=== PATIENT | female | born 1970 | race Caucasian/White ===

== ENCOUNTER 2024-08-07 08:18 | Outpatient (REF) | payer BC, SELFPAY ==
[2024-08-07 09:59] LABS: MANUAL DIFF FLAG NO
[2024-08-07 10:18] LABS: Basophils Percent Auto 0.3 % (0-2); Eosinophils Absolute Auto 0.1 X10*3/uL (0.0-0.4); Eosinophils Percent Auto 1.9 % (0-4); Hematocrit 37.9 % (37.0-47.0); Hemoglobin 12.7 g/dl (12.0-16.0); Imm Gran Abs Auto 0.02 X10*3/uL (0.00-0.03); Imm Gran Pct Auto 0.3 % (0.0-0.4); Lymphocytes Absolute Auto 1.6 X10*3/uL (1.2-4.9); Lymphocytes Percent Auto 26.6 % (20-40); Mean Corpuscular HGB Conc 33.5 g/dl (31.0-35.0); Mean Corpuscular Hemoglobin 31.4 pg (27.0-33.0); Mean Corpuscular Volume 93.8 fL (80.0-98.0); Mean Platelet Volume 9.8 fL (9.4-12.3); Monocytes Absolute Auto 0.5 X10*3/uL (0.1-1.2); Neutrophils Absolute Auto 3.7 x10*3/uL (2.0-8.3); Neutrophils Percent Auto 62.9 % (45-73); Platelet Count 283 X10*3/uL (160-400); Red Blood Count 4.04 X10*6/uL (4.20-5.50); Red Cell Distribution Width 12.6 % (11.0-16.0); White Blood Count 5.9 X10*3/uL (4.8-10.8)
[2024-08-07 10:48] LABS: Alanine Aminotransferase 32 U/L (0-31); Aspartate Amino Transferase 26 U/L (5-31); C Reactive Protein 0.12 mg/dL (< or = 0.50); Estimated Glomerular Filt Rate > 60
[2024-08-07 10:50] LABS: Erythrocyte Sedimentation Rate 7 MM/HR (0-20)
[2024-08-07 11:12] LABS: HBsAGNum1 0.35 S/CO (0.00-0.99); Hepatitis B Core Antibody Nonreactive (Nonreactive); Hepatitis B Surface Antigen Negative (Negative); ~HepC Num1 0.12 S/CO (0.00-0.79); ~Hepatitis B Surface Antibody NONREACTIVE (Nonreactive); ~Hepatitis C Antibody Nonreactive (Nonreactive)
[2024-08-09 23:53] LABS: TS Negative Control Passed; TS Panel A 0; TS Panel B 0; TS Positive Control Passed; TSpotTB Negative (Negative)
== END 2024-08-07 08:19 | disposition home or self-care (01) ==
LOC: HO.LAB 08:18
PROVIDERS: PCP Internal Medicine; Visit Provider Internal Medicine Rheumatology
DX: M05.761 Rheumatoid arthritis with rheumatoid factor of right knee without organ or systems involvement (principal); M05.762 Rheumatoid arthritis with rheumatoid factor of left knee without organ or systems involvement; Z79.899 Other long term (current) drug therapy
CPT/HCPCS: 20610; 36415; 82565; 84450; 84460; 85025; 85652; 86140; 86481; 86704; 86706; 86803; 87340; J2003; J3300

== ENCOUNTER 2024-08-07 08:18 | Outpatient (AMB) | payer BC, SELFPAY ==
[2024-08-07 08:29] VITALS: BP 122/72; PULSE 77; O2SAT 97; BMI 30.7
--- NOTE | 2024-08-07 08:29 | A.OFFVIS_ITS ---
Vital Signs 08/07/24 08:29 Height 5 ft 8 in Weight 201 lb 11.567 oz BMI 30.7 BP 122/72 Blood Pressure Location Lt brachial Position Sitting Pulse 77 Pulse Source Pulse Oximeter Pulse Oximetry (%) 97 Oxygen Delivery Method Room Air Intake Visit Reasons: RA/MR Recieved Intake Note: Patient presents today for RA follow up. She was last seen on 06/12/24 at the [facility] by Dr. Yuan. She states it's mainly in knees and hands. Patient fwould like refill of Methotrexate. Allergies tofacitinib [From Xeljanz] Allergy (Mild, Verified 08/05/24 12:55) Hives Sulfa (Sulfonamide Antibiotics) Allergy (Unknown, Unverified 08/05/24 12:55) Hives HPI HPI RA/MR Recieved: Details: She is feeling soreness and swelling in knees. MS 30 minutes. Pain was better controlled the 1st month she started Rinvoq. She saw Dr. Wilcox in May and had labs done. I do not have results of labs. Pt improved pain from achilles tendonitis [facility]. Rheumatology history: Diagnosis rheumatoid arthritis low titer positive rheumatoid factor diagnosed in her 20s. Erosive. Failed sulfasalazine 99 05/20/2005, methotrexate 2004 to 2005 partial response, Enbrel lost effectiveness January 2006 to 07/07/2014. Humira 07/07/2014 to 01/05/2023 and Simponi 01/24/2023 lost effectiveness. Orencia 06/07/2023 to 10/07/2023 recurrent infections. Xeljanz 12/06/2023 to 04/06/2024 facial rash. Methotrexate 07/07/2023 to present. Rinvoq 05/07/2024 to present [facility] Medical History (Updated 08/07/24 @ 09:19 by Gee Herndon MD) PUD (peptic ulcer disease) Endometrial polyp Incisional hernia Rheumatoid arthritis Surgical History (Updated 08/05/24 @ 13:03 by Marina Bagley CMA) H/O colonoscopy Social History (Updated 08/07/24 @ 08:21 by Marina Bagley CMA) Alcohol intake: never Patient Tobacco Use Status: Never used Tobacco Review of Systems Const All systems reviewed & are unremarkable except as noted in HPI and below Physical Exam Vital Signs: Last Vital Signs Pulse 77 08/07/24 08:29 BP 122/72 08/07/24 08:29 Pulse Ox 97 08/07/24 08:29 Oxygen Delivery Method Room Air 08/07/24 08:29 BMI result Body Mass Index 30.7 Const General: cooperative and healthy appearing Resp Auscultation: clear to auscultation bilaterally Cardio Rate: regular rate Rhythm: regular rhythm Heart sounds: S1 normal heart sound present and S2 normal heart sound present Extrem Other: Tender to palpate right knee. Suprapatellar effusion present. Good range of motion of knees. Crepitus bilateral knees present. No MTP tenderness. No synovitis of joints in upper extremity. No tenderness of any joints in upper extremity. Bilateral Z fingers present. Office Procedures AMB Joint Injection/Aspiration Joint Injection/Aspiration Details: Bilateral knees were injected Prep: site was prepped using aseptic technique Injected: 40 mg of, Kenalog, with 1 mL of and 1% plain lidocaine Procedure: The patient tolerated the procedure well Coding 86098 - Large joint Additional procedure code (CPT) needed (Modifier needed for bilateral procedure) Office Meds Kenalog 40 mg/mL suspension for injection Performing Provider: Gee Herndon MD Performing Location: [facility] Administered by: Gee Herndon MD on 08/07/24 09:12 Dose Route Admin Location Dispensed Lot Number Expiration Date [facility] Sealer Dry Cell 40 mg intra-articular Right knee 1 mL AP [id number] [employer] 40 mg intra-articular Left knee 1 mL AP [id number] [employer] lidocaine (PF) 10 mg/mL (1 %) injection solution Performing Provider: Gee Herndon MD Performing Location: [facility] Administered by: Gee Herndon MD on 08/07/24 09:12 Dose Route Admin Location Dispensed Lot Number Expiration Date [facility] Sealer Dry Cell 10 mg Infiltration Right knee 2 mL [id number] [employer] 10 mg Infiltration Left knee 2 mL [id number] [employer] Assessment & Plan Assessment & Plan (1) Rheumatoid arthritis: Comment: Improved control on Rinvoq and methotrexate. She has received partial response with addition of Rinvoq. We discuss further treatment with intra-articular cortisone injection in bilateral knees for further improvement of knee pain and swelling. Code(s): M06.9 - Rheumatoid arthritis, unspecified Category: Medical Qualifiers: Rheumatoid arthritis location: knee Rheumatoid factor presence: with rheumatoid factor Laterality: bilateral Qualified Code(s): M05.761 - Rheumatoid arthritis with rheumatoid factor of right knee without organ or systems involvement; M05.762 - Rheumatoid arthritis with rheumatoid factor of left knee without organ or systems involvement Plan: Bilateral knee cortisone injections were given this visit Continue Rinvoq 15 mg daily. She needs a new PA After lab results are back for disease and drug monitoring we will send prescription for methotrexate 20 mg once weekly She will continue folic acid 1 mg daily Return to clinic in 3 months (2) [facility] [place] [facility] drug therapy: Code(s): Z79.899 - Other [place] [facility]current[facility] drug therapy Category: Medical Plan: See above Orders: Orders C Reactive Protein Today M06.9 - Rheumatoid arthritis, unspecified, Z79.899 - Other [place] [facility]current[facility] drug therapy Complete Blood Count Auto Diff Today M06.9 - Rheumatoid arthritis, unspecified, Z79.899 - Other extermination supervisor (current) drug therapy Erythrocyte Sedimentation Rate Today M06.9 - Rheumatoid arthritis, unspecified, Z79.899 - Other extermination supervisor (current) drug therapy Alanine Aminotransferase Today M06.9 - Rheumatoid arthritis, unspecified, Z79.899 - Other extermination supervisor (current) drug therapy Aspartate Amino Transferase Today M06.9 - Rheumatoid arthritis, unspecified, Z79.899 - Other extermination supervisor (current) drug therapy Creatinine Today M06.9 - Rheumatoid arthritis, unspecified, Z79.899 - Other [place] [facility] drug therapy Hepatitis B,C Profile Today M06.9 - Rheumatoid arthritis, unspecified, Z79.899 - Other extermination supervisor (current) drug therapy T Spot TB Today M06.9 - Rheumatoid arthritis, unspecified, Z79.899 - Other extermination supervisor (current) drug therapy AMB Joint Injection/Aspiration Today M06.9 - Rheumatoid arthritis, unspecified Medications: New upadacitinib ER (Rinvoq) Take 1 tablet daily. PA needed. Continuity of treatment. 15 mg PO DAILY 30 tabs 2RF Kenalog (triamcinolone acetonide) 80 mg (2 mL) intra-articular ONCE 2 mL 0RF NS M06.9 - Rheumatoid arthritis, unspecified lidocaine (PF) 10 mg Infiltration ONCE 1 mL 0RF M06.9 - Rheumatoid arthritis, unspecified Coding Level of Care Code Est Pt Level 4 (10797) Complex EM visit Add On G2211 Diagnoses Rheumatoid arthritis involving both knees with positive rheumatoid factor M05.761; M05.762 Rheumatoid arthritis location: knee Rheumatoid factor presence: with rheumatoid factor Laterality: bilateral Other [place] [facility]current[facility] drug therapy Z79.899 CPT Codes Coding - 79272 Large joint: 71945 - Large joint ([id number])
== END 2024-08-07 09:14 | disposition home or self-care (01) ==
PROVIDERS: PCP Internal Medicine; Referring Provider Internal Medicine; Visit Provider Internal Medicine Rheumatology
DX: M05.761 Rheumatoid arthritis with rheumatoid factor of right knee without organ or systems involvement (principal); M05.762 Rheumatoid arthritis with rheumatoid factor of left knee without organ or systems involvement; Z79.899 Other long term (current) drug therapy; M06.9 Rheumatoid arthritis, unspecified
CPT/HCPCS: 20610; 99214

== ENCOUNTER 2024-11-06 10:08 | Outpatient (AMB) | payer BC, SELFPAY ==
--- NOTE | 2024-11-06 10:22 | MHC.OFFVIS ---
Vital Signs 11/06/24 10:40 Height 5 ft 8 in Weight 203 lb 6 oz BMI 30.9 BP 122/70 Blood Pressure Location Lt brachial Position Sitting Pulse 83 Pulse Source Pulse Oximeter Pulse Oximetry (%) 94 Oxygen Delivery Method Room Air Intake Visit Reasons: Follow Up Intake Note: Pt present today for rheumatoid arthritis. Diet Aide Required: No Accompanied by: Self / Same As Patient Allergies tofacitinib [From Xeljanz] Allergy (Mild, Verified 11/06/24 10:22) Hives Sulfa (Sulfonamide Antibiotics) Allergy (Unknown, Verified 11/06/24 10:22) Hives HPI HPI Follow Up: Details: She has comedones on her face. Dermatology is concerned that it may be drug-induced related to Rinvoq. Previously she had similar rash when she was on Xeljanz. She has been given topical treatment options without benefit. Knee pain is controlled. Denies morning stiffness. No new joint swelling. No recent infections. She has not had Rinvoq in 1 week. [facility] Medical History PUD (peptic ulcer disease) Endometrial polyp Incisional hernia Rheumatoid arthritis Surgical History H/O colonoscopy Social History Alcohol intake: never Patient Tobacco Use Status: Never used Tobacco Review of Systems Const All systems reviewed & are unremarkable except as noted in HPI and below Physical Exam Vital Signs: Last Vital Signs Pulse 83 11/06/24 10:40 BP 122/70 11/06/24 10:40 Pulse Ox 94 11/06/24 10:40 Oxygen Delivery Method Room Air 11/06/24 10:40 BMI result Body Mass Index 30.9 Const Other: General: Comfortable CVS: RRR Respiratory: clear to auscultation bilaterally. Good respiratory effort Skin: Comedones present on cheeks and chin. MSK: Bilateral see fingers present. Squaring of CMCs. Ulnar deviation right hand. No tenderness of any joints. No synovitis. Good range of motion of upper extremities and lower extremities. Assessment & Plan Assessment & Plan (1) Rheumatoid arthritis: Comment: She is in remission on Rinvoq and methotrexate after cortisone injections of bilateral knees last visit. However, there is concern that the Coumadin is on her face may be related to drug reaction from Rinvoq. We discussed next steps in DMARD therapy. She had secondary treatment failures to TNF inhibitors by had long benefit of at least 9 years on Enbrel and 7 years on Humira. We discussed trying another TNF inhibitor. Discussed side effects, benefits and drug monitoring on Cimzia. At this time she is being managed for hyper triglyceridemia/hypercholesterolemia on gemfibrozil. I am avoiding tocilizumab due to side effect of hypercholesterolemia/hypertriglyceridemia. Recent labs revealed mild transaminitis. If she continues to have transaminitis, I will lower methotrexate dose. Rheumatology history: Low titer positive rheumatoid factor. Erosive inflammatory arthritis. Failed sulfasalazine 1998 to 2004, methotrexate 2004 to 2005 with partial response, Enbrel secondary treatment failure January 2006 to 06/2014, Humira 06/2014 to 12/2022. Simponi 01/24/2023. Orencia 05/2023 to 09/2023 discontinued due to recurrent infections. Methotrexate restarted 07/07/2023 to present. Xeljanz effective 11/2023 to 03/2024 discontinued due to facial rash. Rinvoq effective 03/2024-10/2024 discontinued due to facial rash. Code(s): M06.9 - Rheumatoid arthritis, unspecified Category: Medical Qualifiers: Rheumatoid arthritis location: knee Rheumatoid factor presence: with rheumatoid factor Laterality: bilateral Qualified Code(s): M05.761 - Rheumatoid arthritis with rheumatoid factor of right knee without organ or systems involvement; M05.762 - Rheumatoid arthritis with rheumatoid factor of left knee without organ or systems involvement Plan: She will need Cimzia induction 400 mg once then 2 weeks later then 4 weeks later followed by maintenance 200 mg every 2 weeks Labs for drug monitoring on high-risk medication ordered Continue methotrexate 17.5 mg once weekly Continue folic acid 1 mg daily (2) Other snf (current) drug therapy: Code(s): Z79.899 - Other snf (current) drug therapy Category: Medical Plan: See above Orders: Orders Complete Blood Count Auto Diff Today Z79.60 - prison (current) use of unspecified immunomodulators and immunosuppressants Creatinine Today Z79.60 - termite inspector (current) use of unspecified immunomodulators and immunosuppressants Erythrocyte Sedimentation Rate Today M05.761 - Rheumatoid arthritis with rheumatoid factor of right knee without organ or systems involvement, M05.762 - Rheumatoid arthritis with rheumatoid factor of left knee without organ or systems involvement, Z79.899 - Other termite control technician (current) drug therapy Alanine Aminotransferase Today Z79.60 - termite inspector (current) use of unspecified immunomodulators and immunosuppressants Aspartate Amino Transferase Today Z79.60 - prison (current) use of unspecified immunomodulators and immunosuppressants C Reactive Protein Today M05.761 - Rheumatoid arthritis with rheumatoid factor of right knee without organ or systems involvement, M05.762 - Rheumatoid arthritis with rheumatoid factor of left knee without organ or systems involvement, Z79.899 - Other snf (current) drug therapy Medications: New certolizumab pegol (Cimzia) Maintenance dose 200 mg every other week PA needed 200 mg subcut Q2W 1 ea 2RF certolizumab pegol (Cimzia) PA needed for induction. Initial 400 mg dose, repeat dose 2 weeks and 4 weeks after initial dose. 400 mg (2 mL) subcut Q2W 3 ea 0RF Coding Level of Care Code Est Pt Level 4 (42851) Complex EM visit Add On G2211 Diagnoses Rheumatoid arthritis involving both knees with positive rheumatoid factor M05.761; M05.762 Rheumatoid arthritis location: knee Rheumatoid factor presence: with rheumatoid factor Laterality: bilateral Other snf (current) drug therapy Z79.899
[2024-11-06 10:40] VITALS: BP 122/70; PULSE 83; O2SAT 94; BMI 30.9
--- OUTSIDE RECORDS SUMMARY | 2024-11-06 10:40 | XMS_ITS | Encounter Summary ---
Author Organization [facility] Address [address] [place] [address] Care Team Providers Care Document Analyst Name Role Phone Lori Victoria MD Primary Care Prov ider Reason for Referral * Imaging (Routine) - Closed Specialty Diagnoses / Procedures Referred By Contac t Referred To Contact Radiology Diagnoses Encounter for screening mammogram for breast cancer Procedures MG Mammo Digital Screening w Joshua bilat [facility], Self Referral [facility] Referral ID Status Reason Start Date Expiration Date Visits Re quested Visits Authorized [id number] Closed 10/08/2024 10/08/2025 1 1 * Imaging (Routine) - Closed Specialty Diagnoses / Procedures Referred By Contac t Referred To Contact Radiology Diagnoses Encounter for screening mammogram for breast cancer Procedures MG Mammo Digital Screening w Joshua bilat [facility], Self Referral [facility] [place] Referral ID Status Reason Start Date Expiration Date Visits Re quested Visits Authorized [id number] Closed 10/08/2024 10/08/2025 1 1 Reason for Visit * Imaging (Routine) - Closed Specialty Diagnoses / Procedures Referred By Contac t Referred To Contact Radiology Diagnoses Encounter for screening mammogram for breast cancer Procedures MG Mammo Digital Screening w Joshua bilat [facility], Self Referral [facility] [place] Referral ID Status Reason Start Date Expiration Date Visits Re quested Visits Authorized [id number] Closed 10/08/2024 10/08/2025 1 1 Encounter Details Date Type Department Care Team (Latest Contact Info) Description 10/14/2024 2:00 PM EST - 10/14/2024 11:59 PM EST Hospital [facility] [address] [address] Encounter for screening mammogram for breast cancer Discharge Disposition: Home or Self Care Social History Tobacco Use Types Packs/Day Years Used Date Smoking Tobacco: Never Smokeless Tobacco: Never Alcohol Use Standard Drinks/Week Comments No 0 (1 standard drink = 0.6 oz pur e alcohol) Comments No Sex and Gender Information Value Date Recorded Sex Assigned at Female 10/11/2024 8:15 AM EST Legal Sex Female 2:58 PM EST Gender Identity Female 10/11/2024 8:15 AM EST Sexual Orientation Not on file documented as of this encounter Last Filed Vital Signs Vital Sign Reading Time Taken Comments Blood Pressure - - Pulse - - Temperature - - Respiratory Rate - - Oxygen Saturation - - Inhaled Oxygen Concentration - - Weight 89.8 kg (198 lb) 10/14/2024 2:17 PM EST Height 172.7 cm (5' 8 ) 10/14/2024 2:17 PM EST Body Mass Index 30.11 10/14/2024 2:17 PM EST documented in this encounter Medications at Time of Discharge aluminum-magnesi um hydroxide-simeth icone (Antacid-Antigas ) 200-200-20 mg/5 mL suspension TAKE 15 ML BY MOUTH 3 TIMES DAILY NEEDED (HEARTBURN, BURNING IN ESOPAHGUS, DUODENAL ULCER). 11/01/2023 cholecalciferol (VITAMIN D-3) 125 mcg (5,000 unit) capsule Take 1 capsule (5,000 Units total) by mouth 1 (one) time each day. cimetidine (TAGAMET) 400 mg tablet Take 1 tablet (400 mg total) by mouth 2 (two) times a day. 04/22/2024 estradioL (ESTRACE) 0.5 mg tablet Take 1 tablet (0.5 mg total) by mouth. 12/02/2014 famotidine (Pepcid) 20 mg tablet Take 1 tablet (20 mg total) by mouth 2 (two) times a day. 60 each 10/02/2024 folic acid (FOLVITE) 1 mg tablet TAKE ONE TABLET DAILY WHILE ON METHOTREXATE LORazepam (Ativan) 0.5 mg tablet Take 1 tab prior to procedure 2 tablet 08/02/2024 medroxyPROGESTER one (PROVERA) 10 mg tablet Take 1 tablet (10 mg total) by mouth 1 (one) time each day. 02/18/2020 methotrexate (Xatmep) 2.5 mg/mL Take by mouth. Rinvoq 15 mg tablet extended release 24 hr Take 15 mg by mouth 1 (one) time each day. 09/21/2024 sertraline (Zoloft) 25 mg tablet Take 1 tablet (25 mg total) by mouth 1 (one) time each day. 30 each 10/02/2024 documented as of this encounter Discharge Disposition Disposition Code Departure Means Destination Home or Self Care documented in this encounter Plan of Treatment Upcoming Encounters Date Type Department Care Team (Late st Contact Info) Description 11/14/2024 11:00 AM EST Office Visit Adult Medicine [facility] [address] [place] [address] Fidelina Damon PA [address] [place] [address] documented as of this encounter Procedures Procedure Name Priority Date/Time Associated Diagnosis Comments MG MAMMO DIGITAL SCREENING W JOSHUA BILAT Routine 10/14/2024 2:26 PM EST Encounter for screening mammogram for breast cancer documented in this encounter Results * MG Mammo Digital Screening w Joshua bilat (10/14/2024 2:26 PM EST) Anatomical Region Laterality Modality Breast Bilateral Mammography 10/14/2024 3:08 PM EST Impressions 10/14/2024 3:15 PM EST Multiple bilateral circumscribed equal density masses. ?? No suspicious masses. A negative mammogram in the presence of a clinically suspicious palpable abnormality does not preclude the possibility of malignancy or alter the indications for biopsy. ASSESSMENT: ?? BI-RADS 2: BENIGN RECOMMENDATION(S): 1: Routine screening mammogram BILATERAL in 1 year. -------- FINAL REPORT -------- Dictated By: Hilario Mccoy Dictated Date: 10/14/2024 15:08 ET Assigned Physician: Hilario Mccoy Reviewed and Electronically Signed By: Hilario Mccoy Signed Date: 10/14/2024 15:15 ET Workstation ID: [id number] Transcribed By: Self Edit Transcribed Date: 10/14/2024 15:08 ET Narrative 10/14/2024 3:15 PM EST EXAM: ??SCREENING MAMMOGRAPHY, BILATERAL HISTORY: ??SCREENING. ??No additional history. COMPARISON: ??05/05/2023, 02/07/2022, 02/05/2021 TECHNIQUE: Synthesized CC and MLO projections of each breast. ??Tomosynthesis of each breast in the CC and MLO projections. ADDITIONAL IMAGING: None Computer-aided detection was employed with the iCAD ??profound AI 3-D. TISSUE DENSITY: There are scattered areas of fibroglandular density. (BI-RADS category B) FINDINGS: RIGHT BREAST: There are multiple small varying sized round and oval equal density masses with circumscribed margins. ?? No spiculated masses. ??No distortion. ??No suspicious calcification LEFT BREAST: There are multiple small circumscribed equal density masses. ?? No spiculated masses or distortion. ??No suspicious calcification Procedure Note Hilario Mccoy MD - 10/14/2024 EXAM: SCREENING MAMMOGRAPHY, BILATERAL HISTORY: SCREENING. No additional history. COMPARISON: 05/05/2023, 02/07/2022, 02/05/2021 TECHNIQUE: Synthesized CC and MLO projections of each breast.Tomosynthesis of each breast in the CC and MLO projections. ADDITIONAL IMAGING: None Computer-aided detection was employed with the iCAD profound AI 3-D. TISSUE DENSITY: There are scattered areas of fibroglandular density.(BI-RADS category B) FINDINGS: RIGHT BREAST: There are multiple small varying sized round and oval equal density masseswith circumscribed margins. No spiculated masses. No distortion. No suspicious calcification LEFT BREAST: There are multiple small circumscribed equal density masses. No spiculated masses or distortion. No suspicious calcification IMPRESSION: Multiple bilateral circumscribed equal density masses. No suspicious masses. A negative mammogram in the presence of a clinically suspicious palpableabnormality does not preclude the possibility of malignancy or alter theindications for biopsy. ASSESSMENT: BI-RADS 2: BENIGN RECOMMENDATION(S): 1: Routine screening mammogram BILATERAL in 1 year. -------- FINAL REPORT -------- Dictated By: Hilario Mccoy Dictated Date: 10/14/2024 15:08 ET Assigned Physician: Hilario Mccoy Reviewed and Electronically Signed By: Hilario Mccoy Signed Date: 10/14/2024 15:15 ET Workstation ID: [id number] Transcribed By: Self Edit Transcribed Date: 10/14/2024 15:08 ET us Self Referral [facility] IMG BI PROCEDURES Final Resul t documented in this encounter Visit Diagnoses Diagnosis Encounter for screening mammogram for breast cancer documented in this encounter Care Teams Document Analyst Relationship Specialty Start Date End Date Lori Victoria MD [address] [place] [id number] PCP - General Internal Medicine 02/22/16 documented as of this encounter
--- OUTSIDE RECORDS SUMMARY | 2024-11-06 10:40 | XMS_ITS | Data Portability ---
Author Organization [place] - Associates in [facility],, LETY BURGER MD Address [address] [facility] [address] [place] [address] Care Team Providers Care Shipfitter Apprentice Name Role Phone TISH MOONEY Primary Care Provide r Assessment No assessment recorded. Plan of Treatment Reminders Order Date Submit Date Provider Last Modified By Organization Details Last Modified Time Details Appointments ANNUAL EXAM 2024 11:00A M Lety Burger MD Not available Not available Not available Lab biopsy, endometri al 2023 024 [email or web address] [facility], [address] [place], [address], 12/14/2023 07:27:04 pap test, thinprep, cervical 2022 023 [email or web address] [facility], [address] [place], [address], 05/31/2023 07:32:03 fecal occult blood, stool 2022 023 [email or web address] In-Office Order, Internal Use Only DO Not Attach Compendium DO Not Attach Compendium, Do Not Delete/merge, [id number] 05/17/2023 09:47:50 Referral None recorded. Procedures biopsy, endometri um (PROC) 2023 024 [email or web address] In-Office Order, Internal Use Only DO Not Attach Compendium DO Not Attach Compendium, Do Not Delete/merge, [id number] 12/07/2023 14:41:43 Surgeries None recorded. Imaging US, pelvis, transabdo mary + transvagi nal - PMB, please compare to prior sonogram from 11/11 to see if endometri um has thickened , the in office endometri al biopsy was benign 2023 024 [facility], [address], [place], [address], 06/19/2024 07:27:02 US, pelvis, transabdo mary + transvagi nal - pmb 2023 024 [facility], [address], [address], [place], [address], 11/17/2023 09:23:53 MAMMO, screening , digital, bilateral - Breast Aspiratio n and/or Biopsy if needed 2022 023 [facility] (Mammography) , [address] [place], [address], 05/14/2024 07:18:29 Medication Orders estradiol 1 mg tablet 2023 024 [facility]/Pharmacy #[id number], [address] [place], [address], 10/19/2023 13:44:10 medroxypr ogesteron e 5 mg tablet 2023 024 [facility]/Pharmacy #[id number], [address] [place], [address], 10/19/2023 13:45:15 estradiol 0.05 mg-noreth indrone 0.14 mg/24 hr semiwkly transderm patch 2022 023 [facility]/Pharmacy #[id number], [address] [place], [address], 04/24/2024 10:31:50 conjugate d estrogens 0.625 mg tablet 2021 022 [email or web address] 1 [facility]/Pharmacy #[id number], [address] [place], [address], 05/12/2022 06:22:20 Patient TargetsNo targets recorded. Patient Instructions Encounter Date Encounter Id Patient Instructions Last Modified By Organization Details Last Modified Time 05/11/2022 [id number] This visit is a phone telehealth visit. The patient consented to the visit by phone. The patient was at home at the time of the call and the provider and patient were the only people on the line. I was at [address] [place] [address], [address], [place], [place], at the time of the call. She has been having ongoing bloating with the use of HRT, estradiol and prometrium, and also estradiol and provera. She tried stopping the HRT for 2 weeks, the bloating resolved completely, however her vasomotor symptoms were so severe that she restarted after a week. She feels she needs HRT but would like to know if she can find a combination that does not cause such profound bloating symptoms. She feels that the provera caused less symptoms than the prometrium, however stopping the estradiol helped the most. We discussed trying conjugated equine estrogen, she will try this by itself. If no bloating then she will add in oral provera to see how that works for her. She needs to 5 mg dose as she has a past history of hyperplasia. The Climara Pro patch has a different progestin, but still has estradiol, we discussed this as well, if no improvement with CEE. We discussed having her begin to take hormone replacement therapy. We discussed the need to take a progestin if a uterus is present, and the rationale behind that. We discussed the stated risks of one in 10,000 of development o fa blood clot/DVT/PE tht could be life threatening. We discussed the Women's Health Initive study and the findings. We discused the PEPPI study as well. She is aware that there are conflicting reports in the medical literature concerning the risks and benefits of HRT. We disussed that women are advised by ACOG to take HRT in the lowest dose necessary, and for the shortest time necessary, to control their symptoms. After a long discussion of the potential risks and benefits of HRT she elects to begin HRT. All questions answered. Rx for HRT is called in to the pharmacy. Call if any vaginal bleeding occurs upon initiation of HRT, or at any time postmenopausally. Face to face discussion for 35 minutes. Not available 05/12/2022 06:26:14 05/17/2023 [id number] learning about healthy weight silverio Not available 05/17/2023 08:45:04 She is here for annual, doing well on HRT but still having the bloating. She had a hiatal hernia repair and had hoped the bloating would resolve but it did not. She believes it is due to the HRT. Note from 2021: She is here for annual exam, doing well on the estradiol and 5 mg provera, except for considerable continued blaating This has been an ongoing issue since starting the progesterone. It happened with the oral prometrium, and the 5 mg provera. She needs to 5 mg as she has a past history of developing hyperplasia on HRT. She tried stopping the HRT for 2 weeks, the bloating resolved completely, however her vasomotor symptoms were so severe that she restarted after a week. Will try switching to combination patch to see if this helps the bloating, she would like to try that. She appears to be doing well. Monthly self breast exam was taught, and stressed, and is advised to call if she discovers any new mass in the breast. silverio Not available 05/17/2023 08:46:42 10/19/2023 [id number] vaginal bleeding after menopause: care instructions silverio Not available 10/19/2023 13:42:52 She had the onse t of bright red postmenopausal bleeding a few weeks ago, it s coming and going, recently was a bit heavier in flow. She does use the combination patch for HRT, has not missed any patches. She does not like the patch and would like to go back to the oral pills. she had been taking 1 mg estradiol and 5 mg provera. She had a D and C in 01/2018 that removed a benign hyperplastic endometrial polyp without atypia. We discussed all this, will change back to the oral HRT. Check pelvic sonogram, and may need an emb or a D and C if the endometrium is thickened, she understands. All questions answered, she has gone through this before. The patient was agreeable to this plan. She is aware of the limitations caused by the covid restrictions, and this phone call. Face to face discussion 11 minutes Not available 10/19/2023 14:04:40 12/07/2023 [id number] postmenopausal bleeding information Not available 12/07/2023 14:38:51 endometrial biopsy: about this test Not available 12/07/2023 14:38:51 She is here for EMB for pmb and a thickening of 4 mm on sonogram. She tolerated emb well, await results. Not available 12/07/2023 14:39:02 04/24/2024 [id number] vaginal bleeding after menopause: care [email or web address] Not available 04/24/2024 10:47:28 She is here for another episode of PMB. She has been taking HRT since 2014, she had the onset of menopause in 2013 at the age of 44. she has missed no pills. The bleeding began 2 1/2 weeks ago, and just finished 2 days ago. Some days light, but some were a moderately heavy flow. Sonogram in 11/11 showed a 4 mm heterogeneous endometrium, emb done was benign and atrophic. She may have an endometrial polyp. She notes that she had a D and C in 2018 and an endometrial polyp was removed. Will repeat the sonogram to see if the endometrium has thickened in the past 6 months. We discussed that likely she will need and D and C again, but let's see what the sonogram shows, first. Face to face discussion, record review and coordination of care 25 minutes Not available 04/24/2024 10:51:01 Reason for Referral None Reported. Results Created Date Observation Date Name Description Value Unit Range Abnormal Flag Note LastModifiedBy Organization Detail LastModifiedTime 04/25/20 22 04/25/2022 PAP1C ASE oxr3aicr ThinP rep Pap, Image d: NEGAT REGINALD FOR SQUAM OUS INTRA EPITH ELIAL SERVANDO Wan AND GENA RICHTER . Judit Grayson il , [place]( CP) (Case elect mk collins john d 05 01 2022) ADEQU ACY: Satis facto ry Endoc ervic al/tr ansfo rmati on zone compo nent absen t. SOURC E: ThinP rep Pap HPV IF Ascus : Refle x 16 and 18, Cervi olivia, Image d CLINI OLIVIA INFOR MATIO N: HPV If Diagn osis of ASCUS . LPS 1 neg, [Z01. 419] Not Available [facility], Cytopathology Service [address] [place], [address], 05/02/2022 08:26:30 04/25/20 22 04/25/2022 fecal occul t blood , stool Occult Blood negati ve Not Available In-Office Order Internal Use Only DO Not Attach Compendium DO Not Attach Compendium, Do Not Delete/merge, [id number] 04/25/2022 14:02:51 05/17/20 23 05/17/2023 [facility] CYTOL OGY results Patibridger nt Name: MANUEL JENNINGS nt : [phone] (Age: 53) Lab Acces snata #: [id number] Colle ction Date: 2022 Acces santa Date: 2022 Sign Out Date: 023 Tissu e Sourc e: 1: THINP REP ROTATING EQUIPMENT SPECIALIST PAP TEST, CERVI OLIVIA: Final Diagn osis: NEGAT REGINALD FOR INTRA EPITH ELIAL LESMAHSA N OR MALCHRISTIAN RICHTER . Satis facto ry for evalu ation . Endoc ervic al/tr ansfo rmati on zone prese nt. Clini olivia Histo ry: Date of Last Menst rual Perio d: not avail able Menst rual Histo ry: Post- menop ausal Contr acept reginald Histo ry: not avail able Ancil kai Testi ng: HPV (ASCU S) Case image d by the ThinP rep Imagi ng Syste m with katie fultonr govind zee or fabiola calderon Perfo rmed at [facility] ate Refer ence [facility] Cytol [facility]gy, [address], [place] Clini olivia Histo ry (othe r): z01.4 19, lps 04-25 neg Phone #: [phone], On-Ca ll Patho logis t: [id number] Not Available [facility] [address] [place], [address], 05/26/2023 10:24:38 05/18/20 23 05/18/2023 fecal occul t blood , stool Occult Blood negati ve Not Available In-Office Order Internal Use Only DO Not Attach Compendium DO Not Attach Compendium, Do Not Delete/merge, [id number] 05/17/2023 08:28:59 12/07/19 24 12/07/2023 [facility] SURGI OLIVIA PATHO LOGY results Patie nt Name: MANUEL JENNINGS Lab Acces santa #: [id number] Patie nt : [phone] (Age: 53) Colle ction Date: 2023 Acces santa Date: 2023 Sign Out Date: 2023 Tissu e Sourc e: 1:EMB Final Diagn osis: Endom etriu m, biops y: - Mucus and scant strip s of surfa ce endom etriu m that may in appro priat e clini olivia setti ng repre sent atrop hy. Prima ry Patho logis t:Maria Del Rosario tim M.D. elect [facility] out by: Deloris tim M.D. / VIJAY Clini olivia Histo ry: Postm enopa usal bleed ing Gross Descr iptio n: Label ed endo metri al biops y . Recei sunil in forma tomasa is a 4.2 x 3.0 x 0.5 cm aggre gate of white -ting ed mucus with red, zamora tissu e. The speci men is entir les submi tted. 1 and 2-mul tiple piece s, x 2. (EG)* As of November 25, 2023, the speci men proce ssing and stain ing is perfo rmed at [facility] , [address] [place] [address] (CLIA #[id number]). Its perfo rmanc e drea cteri stics are deter mined by [facility]. Phone #: [phone], On-Ca ll Patho logis t: [id number] Not Available [facility] [address] [place], [address], 12/11/2023 18:21:17 05/05/20 23 05/05/2023 MAMMO , scree jacob, digit al, bilat eral No observ ation record ed. [facility] Diagnosit Imaging Dept [address] [place], [address], 05/08/2023 08:09:22 11/17/19 24 11/07/2023 US, pelvi s, trans abdom inal + trans vagin al No observ ation record ed. [facility]iology [facility] Imaging [address], [place], [address], 11/21/2023 10:57:29 04/30/20 24 04/30/2024 US, pelvi s, trans abdom inal + trans vagin al No observ ation record ed. [facility] [address] [facility] [address], [place], [address], 06/04/2024 13:45:39 Result Notes None recorded. 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 08:23:51 Abscess of vulva 20780984 Completed 12/28/2017 Removal Reason: resolved Lety Burger MD [address] [facility], [place], [address] , [place] - [facility] in [facility], 8 16:04:16 Infectio n of external ear 788862388 Completed 12/28/2017 Removal Reason: resolved Lety Burger MD [address] [facility], [place], [address] , [place] - [facility], 8 16:04:09 Lesion of vulva 855137068 Active Not Available [facility] 2 08:23:51 Candidal vulvovag initis 30384688 Active Not Available [facility] 2 08:23:51 Vertigo of central origin 57560054 Active Not Available 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 2 08:23:51 Amenorrh ea 50885570 Active Not Available [facility] 2 08:23:51 Dysmenor calvin 609794253 Active Not Available [facility] 2 08:23:51 Hematoch ezia 531560883 Active Not Available [facility] 2 08:23:51 Postmeno pausal bleeding 30178202 Active Not Available [facility] 2 08:23:51 Arthriti s 9623379 Active 2017 takes Humira, rheumato id arthriti s Not Available [facility] 2 08:23:51 Benign endometr ial hyperpla smita 18064989490 9108 Active 2017 Not Available [facility] 2 08:23:51 Polyp of corpus uteri 28574006 Active 2017 Not Available [facility] 2 08:23:51 Polymeno rrhea 31597382 Active Not Available [facility] 2 08:23:51 Problem Notes None recorded. Procedures Surgical History Date Name Laterality Status Provider Name and Address Organization Details Recorded Time 4 Endometrial Biopsy completed Lety Burger MD [address] [facility],[address], [place], [address], [place] - [facility] in [facility], 12/07/2023 14:39:26 3 Most Recent Mammogram completed Aliyah Handley [place] - [facility], 05/08/2023 08:54:08 8 Vulvar Biopsy completed Lety Burger MD [address] [facility],[address], [place], [address], [place] - [facility], 05/03/2018 10:38:33 8 Dilation and Curettage completed Carole Marie in [facility], 01/19/2018 08:23:46 8 Endometrial Biopsy completed Lety Burger MD [address], [place], [address], [place] - [facility], 09/29/2017 08:47:06 7 Endometrial Biopsy completed Lety Burger MD [address], [place], [address], [place] - [facility], 04/17/2017 15:33:15 5 Endometrial Biopsy completed Lety Burger MD [address], [place], [address], [place] - [facility], 09/03/2015 16:11:49 5 Vulvar Biopsy completed Lety Burger MD [address], [place], [address], [place] - [facility], 02/04/2015 09:31:52 6 Other completed Vickie Marie in [facility], 10/21/2013 08:11:03 4 Tubal Ligation completed Vickie Marie in [facility], 10/21/2013 08:11:03 5 Caesarean Section completed Carole Marie in [facility], 08/28/2012 14:20:56 Imaging Results Imaging Date Name Status LastModified by Organization Details LastModified Time 05/05/2023 MAMMO, screening, digital, bilateral completed [facility] Imaging Dept [address] [place], [address], 05/08/2023 08:09:22 11/07/2023 US, pelvis, transabdominal + [facility]aginal [email or web address] [address], [address], 11/21/2023 10:57:29 04/30/2024 US, pelvis, transabdominal + transvaginal completed [email or web address] [facility] [address] [facility] [address], [place], [address], 06/04/2024 13:45:39 Procedure Notes None recorded. Medical Equipment None Reported. Allergies Allergen ID Allergen Name Allergen Category Reaction Reaction Severity Criticality Documentation Date Start Date Code Code System Note Provider Name and Address Organization Details Recorded Time 5701 Substance with sulfonami de structure and antibacte rial mechanism of action (substanc e) medicatio n hives Not available Not available 08/28/2012 65225 8003 SNOMED Carole Lei [place] - [facility], 2 14:18:17 Medications Name Sig Start Date Stop Date Status Note LastModified by Organization Details LastModified Time cyclobenzap rine 10 mg tablet TAKE 1 TABLET BY MOUTH 3 TIMES A DAY NEEDED FOR MUSCLE SPASMS 12/28 completed Not Available Not Available Not Available fluconazole 100 mg tablet Take 1 tablet(s) by oral route for 1 day, repeat in 7 days 2012 active Not Available Not Available Not Avai lable terconazole 0.4 % vaginal cream Insert 1 applicato rful every day by vaginal route for 7 days. 11/29 completed Not Available Not Available Not Available prednisone 10 mg tablet PLEASE SEE ATTACHED FOR DETAILED DIRECTION S 10/19 completed Not Available Not Available Not Available erythromyci n 500 mg tablet TAKE 1 TABLET BY MOUTH TWICE A DAY WITH FOOD AND WATER. CONSIDER PROBIOTIC active Not Available Not Available No t Available azithromyci n 250 mg tablet TAKE 2 TABLETS BY MOUTH TODAY, THEN TAKE 1 TABLET DAILY FOR 4 DAYS 04/25 completed Not Available Not Available Not Available CombiPatch 0.05 mg-0.14 mg/24 hr transdermal APPLY 1 PATCH TWICE A WEEK BY TRANSDERM AL ROUTE FOR 84 DAYS. 04/24 completed Not Available Not Available Not Available fluconazole 150 mg tablet TAKE 1 TABLET BY MOUTH AT BEDTIME FOR 1 DAY 04/25 completed Not Available Not Available Not Available benzonatate 200 mg capsule TAKE 1 CAPSULE BY MOUTH EVERY 8 HOURS NEEDED FOR COUGH FOR 7 DAYS 04/24 completed Not Available Not Available Not Available cimetidine 400 mg tablet TAKE 1 TABLET BY MOUTH TWICE A DAY active Not Available Not Available No t Available valacyclovi r 1 gram tablet TAKE 1 TABLET BY MOUTH 3 TIMES A DAY FOR 7 DAYS 04/19 completed Not Available Not Available Not Available medroxyprog esterone 2.5 mg tablet TAKE 1 TABLET BY MOUTH EVERY DAY 04/19 completed Not Available Not Available Not Available Nystop 100,000 unit/gram topical powder APPLY TO THE AFFECTED AREAS 2 TIMES PER DAY 03/07 completed Not Available Not Available Not Available sucralfate 100 mg/mL oral suspension TAKE 2 TEASPOONS FUL (10 ML) BY MOUTH 4 TIMES DAILY. TAKE LEAST 1 DOSE AT BEDTIME 04/24 completed Not Available Not Available Not Available meloxicam 15 mg tablet TAKE 1 TABLET BY MOUTH EVERY DAY WITH FOOD 04/24 completed Not Available Not Available Not Available prednisone 20 mg tablet TAKE 2 TABLETS DAILY FOR 5 DAYS WITH FOOD 04/24 completed Not Available Not Available Not Available medroxyprog esterone 5 mg tablet TAKE 1 TABLET BY MOUTH EVERY DAY 2024 active Not Available Not Available Not Avai lable prednisone 5 mg tablet TAKE 3 TABLETS DAILY X 7DAYS, DECREASE TO 2 TABS DAILY X 7DAYS, THEN DECREASE TO 1 TAB DAILY X7DAYS. 10/19 completed Not Available Not Available Not Available sulindac 150 mg tablet TAKE 1 TAB BY MOUTH 2 TIMES DAILY WITH FOOD 04/19 completed Not Available Not Available Not Available fluocinonid e 0.05 % topical ointment APPLY TO AFFECTED AREA TWICE A DAY FOR 2 WEEKS. STOP FOR 1 WEEK THEN REPEAT NEEDED 03/07 completed Not Available Not Available Not Available cimetidine 800 mg tablet TAKE 1 TABLET BY MOUTH TWICE A DAY 12/28 completed Not Available Not Available Not Available omeprazole 40 mg capsule,del ayed release TAKE 1 CAPSULE BY MOUTH TWICE A DAY 05/17 completed Not Available Not Available Not Available meloxicam 7.5 mg tablet TAKE 1 TABLET BY MOUTH EVERY DAY WITH FOOD 04/25 completed Not Available Not Available Not Available zinc sulfate 50 mg zinc (220 mg) tablet TAKE 1 TABLET BY MOUTH DAILY 03/07 completed Not Available Not Available Not Available estradiol 1 mg tablet TAKE 1 TABLET BY MOUTH EVERY DAY 2023 active Not Available Not Available Not Avai lable methotrexat e sodium 2.5 mg tablet TAKE 7 TABLETS ONCE A WEEK ON MONDAYS active Not Available Not Available No t Available hydrocortis one valerate 0.2 % topical ointment APPLY TO AFFECTED AREA TWICE A DAY 03/04 completed Not Available Not Available Not Available antipyrine- benzocaine 5.4 %-1.4 % ear drops PLACE 1 DROP IN EAR(S) 3 TIMES DAILY NEEDED active Not Available Not Available No t Available imiquimod 5 % topical cream packet APPLY TOPICALLY TO WARTS THREE TIMES A WEEK AT NIGHT FOR 16 WEEKS. WASH OFF IN AM. 03/07 completed Not Available Not Available Not Available benzonatate 100 mg capsule TAKE 1 CAPSULE BY MOUTH 3 TIMES DAILY NEEDED FOR COUGH FOR UP TO 7 DAYS. 04/24 completed Not Available Not Available Not Available gemfibrozil 600 mg tablet TAKE 1 TABLET BY MOUTH 2 TIMES DAILY (BEFORE MEALS) FOR 30 DAYS. active Not Available Not Available No t Available cephalexin 500 mg capsule TAKE ONE PILL THREE TIMES DAILY WITH FOOD FOR ONE WEEK. 04/25 completed Not Available Not Available Not Available pantoprazol e 40 mg tablet,shahla yed release TAKE 1 TABLET BY MOUTH EVERY MORNING ON EMPTY STOMACH, WAIT 30 MINS THEN EAT TO ACTIVATE THE MED 10/19 completed Not Available Not Available Not Available conjugated estrogens 0.625 mg tablet Take 1 tablet every day by oral route for 30 days. 2021 active Not Available Not Available Not Avai lable progesteron e micronized 200 mg capsule TAKE ONE CAPSULE BY MOUTH AT BEDTIME 03/04 completed Not Available Not Available Not Available mupirocin calcium 2 % topical cream APPLY TO AFFECTED AREA TWICE A DAY 03/04 completed Not Available Not Available Not Available betamethaso ne, augmented 0.05 % topical ointment APPLY TO AFFECTED AREA ON BACK TWICE DAILY FOR 2 WKS, BREAK 1 WK, REPEAT NEEDED 12/28 completed Not Available Not Available Not Available folic acid 1 mg tablet TAKE 1 TABLET BY MOUTH EVERY DAY active Not Available Not Available No t Available bisacodyl 5 mg tablet,shahla yed release TAKE 2 TABLETS BY MOUTH RIGHT BEFORE YOUR FIRST DOSE OF LIQUID PREP. 04/24 completed Not Available Not Available Not Available gabapentin 100 mg capsule TAKE 1 CAPSULE BY MOUTH 3 TIMES A DAY MAY MAKE YOU SLEEPY 04/19 completed Not Available Not Available Not Available lorazepam 1 mg tablet TAKE 1/2 TO 1 TABLET BY MOUTH DAILY NEEDED FOR ANXIETY 12/11 completed Not Available Not Available Not Available fluocinonid e 0.05 % topical solution APPLY TWICE DAILY TO PSORIASIS ON THE SCALP FOR TWO WEEKS, THEN BREAK 1 WEEK AND REPEAT FOR FLARES 12/28 completed Not Available Not Available Not Available ipratropium bromide 42 mcg (0.06 %) nasal spray USE 2 SPRAYS BY INTRANASA L ROUTE FOR 7 DAYS. 04/25 completed Not Available Not Available Not Available clobetasol 0.05 % scalp solution APPLY TWICE DAILY TO PSORIASIS ON SCALP FOR TWO WEEKS, THEN BREAK 1 WEEK AND REPEAT NEEDED 12/28 completed Not Available Not Available Not Available fluticasone propionate 50 mcg/actuati on nasal spray,suspe nsion INSERT 2 EACH (INTRANAS AL - BILATERAL LY) DAILY FOR 30 DAYS active Not Available Not Available No t Available dicyclomine 10 mg capsule TAKE 1 CAPSULE BY MOUTH 4 TIMES DAILY (BEFORE MEALS AND NIGHTLY). TAKE NEEDED FOR ABDOMINAL PAIN 05/17 completed Not Available Not Available Not Available Hibiclens 4 % topical liquid PLEASE SEE ATTACHED FOR DETAILED DIRECTION S 05/17 completed Not Available Not Available Not Available amoxicillin 875 mg-potassiu m clavulanate 125 mg tablet TAKE 1 TABLET BY MOUTH 2 TIMES DAILY FOR 10 DAYS. TAKE WITH FOOD. 04/24 completed Not Available Not Available Not Available oxycodone 5 mg tablet TAKE 1 TABLET BY MOUTH EVERY 6 HOURS NEEDED FOR MODERATE PAIN SCALE 4-6 PARTIAL FILL UPON REQUEST 05/17 completed Not Available Not Available Not Available clindamycin 1 % lotion APPLY TO THE AFFECTED AREAS ON THE BACK ONCE DAILY 03/07 completed Not Available Not Available Not Available azelaic acid 15 % topical gel PLEASE SEE ATTACHED FOR DETAILED DIRECTION S active Not Available Not Available No t Available Enbrel 50 mg/mL (1 mL) subcutaneou s syringe Inject 1 mL every week by subcutane ous route. active Not Available Not Available No t Available metronidazo le 1 % topical gel APPLY 1 APPLICATO R TOPICALLY DAILY FOR 14 DAYS. 04/24 completed Not Available Not Available Not Available meclizine active Not Available Not Yvette ilable Not Available Humira 05/17 completed Not Available Not Available Not Available Orencia active Not Available Not Avail able Not Available diclofenac 1 % topical gel APPLY 4 GRAMS TOPICALLY TWICE DAILY 05/11 completed Not Available Not Available Not Available Simponi 50 mg/0.5 mL subcutaneou s pen injector 05/17 completed Not Available Not Available Not Available GaviLyte-G 236 gram-22.74 gram-6.74 gram-5.86 gram oral solution PLEASE SEE ATTACHED FOR DETAILED DIRECTION S active Not Available Not Available No t Available estradiol 10 mcg vaginal tablet one tab po qd 05/17 completed Not Available Not Available Not Available Antacid-Ant igas 200 mg-200 mg-20 mg/5 mL oral suspension TAKE 15 ML BY MOUTH 3 TIMES DAILY NEEDED (HEARTBUR N, BURNING IN ESOPAHGUS , DUODENAL ULCER). active Not Available Not Available No t Available Taclonex 0.005 %-0.064 % topical suspension APPLY TO AFFECTED AREA DAILY 03/07 completed Not Available Not Available Not Available Xeljanz XR 11 mg tablet,exte nded release 04/24 completed Not Available Not Available Not Available Orencia ClickJect 125 mg/mL subcutaneou s auto-inject or active Not Available Not Available Not Available Humira(CF) Pen 40 mg/0.4 mL subcutaneou s kit 05/17 completed Not Available Not Available Not Available Rinvoq 15 mg tablet,exte nded release active Not Available Not Available Not Available Vitals Date Recorded Body height Provider Name an d Address Organization Details Last Updated DateTime 05/11/2022 170.18 cm Aliyah Handley MA - [facility], 05/11/2022 11:03:40 Date Recorded Body height Heart rate Body mass index (BMI) Body weight Systolic blood pressure Diastolic blood pressure Provider Name and Address Organization Details Last Updated DateTime 3 170.18 cm 94 /min 31.7 kg/m2 59937.3 8 g 165 mm[Hg] 95 mm[Hg] Vickie Arreaga MA - [facility] in [facility], 3 08:20:09 Date Recorded Body height Provider Name an d Address Organization Details Last Updated DateTime 10/19/2023 170.18 cm Vickie tobias in [facility], 10/19/2023 13:32:04 Date Recorded Body height Body mass index (BMI) Body weight Body temperature Heart rate Systolic blood pressure Diastolic blood pressure Provider Name and Address Organization Details Last Updated DateTime 4 170.18 cm 31.7 kg/m2 11696.1 g 97.2 [degF] 86 /min 158 mm[Hg] 83 mm[Hg] alexander Marie in [facility], 4 14:21:13 Date Recorded Body height Body mass index (BMI) Body weight Heart rate Systolic blood pressure Diastolic blood pressure Provider Name and Address Organization Details Last Updated DateTime 4 170.18 cm 31.4 kg/m2 79793.3 5 g 98 /min 127 mm[Hg] 84 mm[Hg] Vickie Marie in [facility], 4 10:30:32 Social History Question Answer Notes LastModified by Organizat ion Details LastModified Time Tobacco Smoking Status Never Smoker Not Available [facility] 07[facility]21/2020 03:19:38 What Is Your Level Of Alcohol Consumption? None [id number] Information not available 07/21/2020 How Many Years Have You Consumed Alcohol? 0 [id number] Information not available 07/21/2020 What Is Your Level Of Caffeine Consumption? Occasional [id number] Information not available 07/21/2020 In The 14 Days Before Symptom Onset, Have You Had Close Contact With A Laboratory-confir med COVID-19 While That Case Was Ill? No Information not available 04/19/2021 In The 14 Days Before Symptom Onset, Have You Had Close Contact With A Person Who Is Under Investigation For COVID-19 While That Person Was Ill? No Information not available 04/19/2021 Have You Been To An Area Known To Be High Risk For COVID-19? No Information not available 04/19/2021 Are You Currently Employed? Yes Information not available 04/19/2021 Diabetes No Information no t available 03/04/2016 What Type Of Diet Are You Following? REGULAR [id number] Information not available 07/21/2020 Which Illicit Or Recreational Drugs Have You Used? None [id number] Information not available 07/21/2020 Do You Reside In Or Have You Traveled To An Area Where Ebola Virus Transmission Is Active? No [id number] Information not available 07/21/2020 Education 12 Information no t available 08/28/2012 What Is The Highest Grade Or Level Of School You Have Completed Or The Highest Degree You Have Received? 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 [employer] [id number] Information not available 07/21/2020 How Many Days In The Past Year Have You Had A Heavy Drinking Consumption (4+ Female, 5+ Male)? 0 Information no t available 06/07/2016 Are There Any Guns Present In Your Home? No Information not available 04/19/2021 High Number Of Sexual Partners No Information not available 03/04/2016 Live Alone Or With Others? With Others [employer] Information not available 03/04/2016 To Which Gender Do You Self-identify? Female Information not available 03/04/2016 Marital Status [employer] Informatio n not available 08/28/2012 What Was The Date Of Your Most Recent Tobacco Screening? 10/19/2023 Information not available 10/19/2023 How Many Children Do You Have? 2 [id number] Information not available 07/21/2020 What Is Your Relationship Status? Information not available 04/19/2021 Seat Belts Used Routinely Yes Paradise Cornertorski Information not available 03/04/2016 Are You Sexually Active? Yes [id number] Information not available 07/21/2020 How Much Tobacco Do You Smoke? No [id number] Information not available 07/21/2020 General Stress Level Medium Information not available 10/31/2014 Do You Feel Stressed (tense, Restless, Nervous, Or Anxious, Or Unable To Sleep At Night)? [id number] Information not available 04/19/2021 Do You Use Any Illicit Or Recreational Drugs? No Information not available 04/19/2021 How Many Years Have You Smoked Tobacco? 0 [id number] Information not available 07/21/2020 Have You Recently (within The Last 12 Weeks, Or During A Current ) Traveled To Or Lived In A Zika-affected Area? No Information not available 03/04/2016 Do You Or Have You Ever Used Any Other Forms Of Tobacco Or Nicotine? No Information not available 04/19/2021 Sex: Female Functional Status Question Answer Note LastModified by Organizat ion Details LastModified Time What is your exercise level? Occasional Information not available 04/19/2021 Mental Status None recorded. Family History Relationship Description Onset Age of this Age Resolved Age Notes LastModified by Organization Details LastModified Time Sister Multiple sclerosis 35 Not available 08/18 16:09:48 Sister Calculus of pancreas 51 cancer [email or web address] Not available 2022 08:26:24 Mother Problem none Not availab le 09/03/2015 16:09:48 Medical History Condition Response High Blood Pressure N Autoimmune Condition N Depression N History of Ovarian Cancer N Anxiety Disorder N Arthritis Y Infertility N Kidney or Bladder Problems N Osteopenia N Asthma N Hepatitis N Anesthesia complications N Candidate for MyRisk panel N Lung Disease N Defects or Inherited Disease N BRCA testing in past N History of Cancer N Endometriosis N Thyroid Problems N GI Problems N Anemia N History of Breast Cancer N LAURI exposure N Psychiatric Illness N Diabetes N Headaches or Migraines N Heart Disease N Hypertension N Osteoporosis N Gynecological History Statement/Question Response Dysmenorrhea N If Post Menopausal, Age at Menopause 43 Flow Light Most Recent Bone Density Date of LMP 10/19/2013 Menses Monthly N Most Recent Mammogram 05/05/2023 Current Control Method Tubal Ligat ion Age at Menarche 8 Age at First Child 25 Hormone Replacement Therapy Y Obstetrics History GPAL:G 2 P 2 0 0 2 Type Value Full Term 2 Living 2 Total 2 Immunizations Vaccine Type Date Status Note Provider Nam e and Address Organization Details Recorded Time Influenza, split virus, quadrivalent, preservative 6 completed Aliyah Emmanuelle null, [place] - [facility], 04/25/2022 14:02:38 Influenza, split virus, quadrivalent, preservative 7 completed Aliyah gama, [place] - [facility], 04/25/2022 14:02:38 Influenza, split virus, quadrivalent, preservative 8 completed Aliyah gama MA - [facility], 04/25/2022 14:02:38 COVID-19, mRNA, LNP-S, PF, 30 mcg/0.3 mL dose 1 completed Vickie Meczywor null, [place] - [facility], 05/17/2023 08:19:53 COVID-19, mRNA, LNP-S, PF, 30 mcg/0.3 mL dose, alejandro-sucrose 2 completed Vickie Meczywor null, [place] - [facility], 05/17/2023 08:19:53 Pneumococcal conjugate PCV20, polysaccharide VAV232 conjugate, adjuvant, PF 2 completed Vickie Meczywor null, [place] - [facility], 05/17/2023 08:19:53 Influenza, MDCK, quadrivalent, PF 9 completed Vickie Meczywor null, [place] - [facility], 05/17/2023 08:19:53 Influenza, MDCK, quadrivalent, PF 8 completed Vickie Meczywor null, [place] - [facility], 05/17/2023 08:19:53 COVID-19, mRNA, LNP-S, PF, 30 mcg/0.3 mL dose 2 completed Vickie Meczywor null, MA - [facility], 05/17/2023 08:19:53 COVID-19, mRNA, LNP-S, PF, 30 mcg/0.3 mL dose 1 completed Vickie Meczywor null, [place] - [facility], 05/17/2023 08:19:53 pneumococcal polysaccharide PPV23 8 completed Vickie Meczywor null, MA - [facility], 05/17/2023 08:19:53 influenza, unspecified formulation 3 completed Vickie Meczywor null, [place] - [facility], 05/17/2023 08:19:53 Tdap 7 completed Vickie Meczywor null, [place] - [facility], 05/17/2023 08:19:53 Pneumococcal conjugate PCV 13 3 completed Vickie Meczywor null, [place] - [facility], 05/17/2023 08:19:53 Influenza, split virus, trivalent, preservative 1 completed Vickie Meczywor null, [place] - [facility], 05/17/2023 08:19:53 Influenza, split virus, trivalent, preservative 8 completed Vickie Meczywor null, [place] - [facility], 05/17/2023 08:19:53 Influenza, split virus, trivalent, preservative 2 completed Vickie Meczywor null, [place] - [facility], 05/17/2023 08:19:53 Influenza, split virus, trivalent, preservative 5 completed Vickie Meczywor null, [place] - [facility], 05/17/2023 08:19:54 Influenza, split virus, trivalent, preservative 4 completed Vickie Meczywor null, [place] - [facility], 05/17/2023 08:19:54 Influenza, split virus, trivalent, preservative 5 completed Vickie Meczywor null, [place] - [facility], 05/17/2023 08:19:54 Influenza, split virus, trivalent, preservative 4 completed Vickie Meczywor null, [place] - [facility], 05/17/2023 08:19:54 Influenza, split virus, trivalent, preservative 5 completed Vickie Meczywor null, [place] - [facility], 05/17/2023 08:19:54 Influenza, split virus, trivalent, preservative 3 completed Vickie Meczywor null, MA - [facility], 05/17/2023 08:19:54 Influenza, split virus, trivalent, preservative 2 completed Vickie Meczywor null, [place] - [facility], 05/17/2023 08:19:54 Influenza, split virus, trivalent, preservative 6 completed Vickie Meczywor null, [place] - [facility], 05/17/2023 08:19:54 Influenza, split virus, quadrivalent, PF 1 completed Vickie Meczywor null, [place] - [facility], 05/17/2023 08:19:54 Influenza, split virus, quadrivalent, PF 0 completed Vickie Meczywor null, [place] - [facility], 05/17/2023 08:19:54 Past Encounters Encounter ID Performer Location Encounter Start Date Encounter Closed Date Diagnosis/Indication Diagnosis SNOMED-CT Code Diagnosis ICD10 Code Diagnosis Note [id number] MD LETY Lopez MD [address] [facility] [place] [id number] 08/28/2012 13:57:20 08/29/2012 12:25:20 [id number] MD LETY Lopez MD [address] [facility],[address] [place] [id number] 09/25/2012 14:55:14 09/25/2012 15:12:49 [id number] MD LETY Lopez MD [address] [place] [id number] 10/18/2012 13:52:30 10/19/2012 16:10:30 [id number] [facility] LETY BURGER MD [address] [facility],[address] [place] [address] 10/21/2013 08:01:20 10/21/2013 10:47:58 Specialized medical examination [id number] Screening for malignant neoplasm of rectum 281010210 Screening mammography 46167291 [id number] Vickie BURGER MD [address] [facility],[place] [address] 11/22/2012 13:19:47 11/22/2012 15:02:29 [id number] LETY BURGER MD [address] [facility],[place] [id number] 10/31/2014 07:49:14 10/31/2014 09:36:43 Specialized medical examination [id number] Screening for malignant neoplasm of rectum 641383728 Screening mammography 03588869 Menopausal syndrome [id number] Marisa BURGER MD [address] [facility],[place] [id number] 12/30/2014 15:23:37 12/30/2014 16:07:25 Menopausal syndrome 620957769 [id number] Vickie BURGER MD [address] [facility],[place] [id number] 01/12/2015 14:11:39 01/12/2015 15:39:40 Abscess of vulva 00411156 Infection of external ear 758881921 [id number] Vickie BURGER MD [address] [facility],[place] [id number] 02/04/2015 08:23:05 02/04/2015 10:02:37 Lesion of vulva 678929433 [id number] MD LETY Lopez MD [address] [facility],[place] [id number] 09/03/2015 15:42:38 09/03/2015 16:15:37 Postmenopausal bleeding 50082925 N95.0 [id number] MD LETY oLpez MD [address] [facility],[place] [id number] 03/04/2016 09:38:37 03/04/2016 10:41:57 Specialized medical examination 39853291 Z01.419 Screening for malignant neoplasm of rectum 670413525 Z12.12 Screening mammography 24 009020 Z12.31 Menopausal syndrome 1237 42075 N95.9 [id number] MD LETY Lopez MD [address] [place] [address] [facility] [place] [id number] 06/07/2016 07:54:54 06/07/2016 10:26:24 Atypical squamous cells of undetermined significance on cervical Papanicolaou smear 113940902 R87.610 [id number] MD LETY Lopez MD [address] [place] [address] [place] [address] 12/09/2016 12:58:38 12/09/2016 14:43:10 Candidal vulvovaginitis 24314681 B37.3 Candidiasis of skin 4988 3006 B37.2 [id number] MD LETY Lopez MD [address] [place] [address] [place] [address] 03/07/2017 14:50:48 03/07/2017 16:05:38 Specialized medical examination 17198341 Z01.419 Screening for malignant neoplasm of rectum 854726560 Z12.12 Screening mammography 24 581332 Z12.31 Menopausal syndrome 1237 67860 N95.1 [id number] MD LETY Lopez MD [address] [place] [address] [place] [address] 04/17/2017 15:12:27 04/17/2017 15:46:39 Postmenopausal bleeding 99587995 N95.0 [id number] MD LETY Lopez MD [address] [place] [address] [place] [address] 04/20/2017 15:18:59 04/20/2017 15:59:17 Simple endometrial hyperplasia 546337767 N85.01 [id number] MD LETY Lopez MD [address] [place] [address] [place] [address] 09/29/2017 08:14:24 09/29/2017 10:41:14 Simple endometrial hyperplasia 140724640 N85.01 [id number] MD LETY Lopez MD [address] [place] [address],[place] [id number] 10/23/2017 14:55:32 10/24/2017 08:49:17 Polyp of corpus uteri 52698607 N84.0 Benign end ometrial hyperplasia 0397322582 05462 N85.01 Menopausal syndrome 1237 99333 N95.1 [id number] MD LETY Lopez MD [address] [place] [address], [place] [id number] 11/30/2017 08:16:33 11/30/2017 11:52:37 Polyp of corpus uteri 95999922 N84.0 Postmenopa usal bleeding 58051113 N95.0 [id number] MD LETY Lopez MD [address] [place] [address], [place] [id number] 12/28/2017 15:30:28 12/28/2017 16:19:33 Postmenopausal bleeding 45277005 N95.0 Polyp of corpus uteri 11 961419 N84.0 [id number] MD LETY Lopez MD [address] [place] [address], [place] [id number] 01/19/2018 08:14:43 01/19/2018 11:31:30 Benign endometrial hyperplasia 3294973206 03022 N85.01 Polyp of corpus uteri 11 776143 N84.0 [id number] MD LETY Lopez MD [address] [place] [address],[facility] [place] [id number] 05/03/2018 10:02:13 05/03/2018 11:55:08 Mass of vulva 614141968 N90.89 [id number] MD LETY Lopez MD [address] [place] [address], [place] [id number] 12/11/2018 15:09:18 12/11/2018 16:00:16 Specialized medical examination 91272488 Z01.419 Screening for malignant neoplasm of rectum 102551581 Z12.12 Screening mammography 24 569816 Z12.31 Menopausal syndrome 1237 63182 N95.1 [id number] MD LETY Lopez MD [address] [place] [address], [place] [address] 01/08/2020 09:50:40 01/08/2020 11:03:58 Menopausal syndrome 713156043 N95.1 Exposure t o SARS-CoV-2 684305198 Z20.828 [id number] MD LETY Lopez MD [address] [place] [address],[facility] [place] [id number] 04/19/2021 09:57:47 04/19/2021 10:56:03 Specialized medical examination 38108899 Z01.419 Screening for malignant neoplasm of rectum 536298322 Z12.12 Screening mammography 24 187390 Z12.31 Menopausal syndrome 1237 14832 N95.1 Mass of ovary 652620179 R19.09 [id number] MD LETY Lopez MD [address] [place] [address],[facility] [id number] 04/25/2022 14:00:27 04/25/2022 14:52:14 Specialized medical examination 22545952 Z01.419 Screening for malignant neoplasm of rectum 910071334 Z12.12 Screening mammography 24 249686 Z12.31 Menopausal syndrome 1237 93107 N95.1 [id number] MD LETY Lopez MD [address] [place] [address], [place] [address] 05/11/2022 10:37:16 05/12/2022 08:34:12 Menopausal syndrome 391162139 N95.1 [id number] MD LETY Lopez MD [address] [place] [address],[facility] [place] [address] 05/17/2023 08:16:45 05/17/2023 09:48:02 Specialized medical examination 94854676 Z01.419 Screening for malignant neoplasm of rectum 106912028 Z12.12 Screening mammography 24 606985 Z12.31 Menopausal syndrome 1237 64997 N95.1 [id number] MD LETY Lpoez MD [address] [place] [address], [place] [address] 10/19/2023 13:19:50 10/20/2023 14:07:00 Postmenopausal bleeding 26200556 N95.0 Menopausal syndrome 1237 88532 N95.1 [id number] MD LETY Lopez MD [address] [place] [address], [address] [place] [id number] 12/07/2023 14:18:23 12/07/2023 14:41:57 Postmenopausal bleeding 42052182 N95.0 [id number] MD LETY Lopez MD [address] [place] [address], [address] [place] [id number] 04/24/2024 10:20:46 04/24/2024 11:29:29 Postmenopausal bleeding 93200649 N95.0 Health Concerns Section Related Observation LastModified by Organization Detai ls LastModified Time None Recorded Concern Status LastModified by Organization Details LastModified Time None Recorded Advance Directives Directive None Recorded Payers Encounter Date Sequence Insurance Name Policy Number Policy Dean Covered Member ID Dean Member ID Guarantor Name 05/11/2022 1 [place] [facility] (O) [id number] Celestino Jennings Jr [id number] Alison Jennings 05/17/2023 1 [place] (O) [id number] Celestino Jennings Jr [id number] Alison Jennings 10/19/2023 1 [place] ([place]) [id number] Celestino Jennings Jr [id number] Alison Jennings 12/07/2023 1 [place] ([place]) [id number] Celestino Jennings Jr [id number] Alison Jennings 04/24/2024 1 [place] (O) [id number] Celestino Jennings Jr [id number] Alison Jennings Notes Date Note Type Note Provider Name and Address Organization Details Recorded Time 05/11/2022 text/html This visit is a phone telehealth visit. The patient consented to the visit by phone. The patient was at home at the time of the call and the provider and patient were the only people on the line. I was at [address] [facility], [address], [place], at the time of the call. She has been having ongoing bloating with the use of HRT, estradiol and prometrium, and also estradiol and provera. She tried stopping the HRT for 2 weeks, the bloating resolved completely, however her vasomotor symptoms were so severe that she restarted after a week. She feels she needs HRT but would like to know if she can find a combination that does not cause such profound bloating symptoms. Lety Burger MD [address] [facility],[address], [place], [address], [place] - [facility], 05/12/2022 06:26:38 05/17/2023 text/html She is here for annual, doing well on HRT but still having the bloating. She had a hiatal hernia repair and had hoped the bloating would resolve but it did not. She believes it is due to the HRT. ___ Note from 2021: She is here for annual exam, doing well on the estradiol and 5 mg provera, except for considerable continued blaating This has been an ongoing issue since starting the progesterone. It happened with the oral prometrium, and the 5 mg provera. She needs to 5 mg as she has a past history of developing hyperplasia on HRT.She tried stopping the HRT for 2 weeks, the bloating resolved completely, however her vasomotor symptoms were so severe that she restarted after a week. Lety Burger MD [address] [facility],[address], [place], [address], [place] - [facility], 05/17/2023 08:47:05 10/19/2023 text/html She had the onse t of bright red postmenopausal bleeding a few weeks ago, it s coming and going, recently was a bit heavier in flow. She does use the combination patch for HRT, has not missed any patches. She does not like the patch and would like to go back to the oral pills. she had been taking 1 mg estradiol and 5 mg provera. She had a D and C in 01/2018 that removed a benign hyperplastic endometrial polyp without atypia. Lety Burger MD [address], [place], [address], [place] - [facility], 10/19/2023 14:05:06 12/07/2023 text/html She is here for EMB for pmb and a thickening of 4 mm on sonogram. Lety Burger MD [address], [place], [address], [place] - [facility], 12/07/2023 14:39:46 04/24/2024 text/html She is here for another episode of PMB. She has been taking HRT since 2014, she had the onset of menopause in 2013 at the age of 44. she has missed no pills. The bleeding began 2 1/2 weeks ago, and just finished 2 days ago. Some days light, but some were a moderately heavy flow. Sonogram in 11/11 showed a 4 mm heterogeneous endometrium, emb done was benign and atrophic. Lety Burger MD [address], [place], [address], [place] - [facility], 04/24/2024 11:24:18 OBGyn Episode No OBEpisode recorded.
--- OUTSIDE RECORDS SUMMARY | 2024-11-06 10:41 | XMS_ITS | Clinical Summary ---
Author Organization [facility] [address] [facility] lding Address [address] [place] [address] Phone Care Team Providers Care Phlebotomist Name Role Phone Lori Victoria MD Primary Care Prov ider Allergies Active Allergy Reactions Criticality Noted Date Comments Doxycycline Hives 11/26/2009 Sulfacetamide Sodium Rash 08/17/2005 Tofacitinib 03/29/2024 Medications cholecalciferol (VITAMIN D-3) 125 mcg (5,000 unit) capsule Take 1 capsule (5,000 Units total) by mouth 1 (one) time each day. Active cimetidine (TAGAMET) 400 mg tablet Take 1 tablet (400 mg total) by mouth 2 (two) times a day. 4 Active estradioL (ESTRACE) 0.5 mg tablet Take 1 tablet (0.5 mg total) by mouth. 5 Active folic acid (FOLVITE) 1 mg tablet TAKE ONE TABLET DAILY WHILE ON METHOTREXATE Active aluminum-magnes ium hydroxide-simet hicone (Antacid-Antiga s) 200-200-20 mg/5 mL suspension TAKE 15 ML BY MOUTH 3 TIMES DAILY NEEDED (HEARTBURN, BURNING IN ESOPAHGUS, DUODENAL ULCER). 4 Active medroxyPROGESTE Rolly (PROVERA) 10 mg tablet Take 1 tablet (10 mg total) by mouth 1 (one) time each day. 0 Active methotrexate (Xatmep) 2.5 mg/mL Take by mouth. Activ e LORazepam (Ativan) 0.5 mg tablet Take 1 tab prior to procedure 2 tablet 4 Active Rinvoq 15 mg tablet extended release 24 hr Take 15 mg by mouth 1 (one) time each day. 5 Active sertraline (Zoloft) 25 mg tablet Take 1 tablet (25 mg total) by mouth 1 (one) time each day. 30 each 5 10/02/19 26 Active famotidine (Pepcid) 20 mg tablet Take 1 tablet (20 mg total) by mouth 2 (two) times a day. 60 each 5 10/02/19 26 Active Active Problems Problem Noted Date Diagnosed Date Epigastric abdominal pain 01/03/2023 Umbilical hernia without obstruction and without gangrene 01/03/2023 History of COVID-19 07/07/2021 Overview (07/12/2024): April 2021 - mild case Ankle pain, left 09/07/2020 Cutaneous wart 11/23/2016 Overview (07/12/2024): On hands - chronic - improved with estrogen replacement therapy Stress incontinence 04/25/2009 Overview (07/12/2024): Sees Dr Shultz Surgery ~ 2003 Rosacea 01/22/2008 Overview (07/12/2024): On minocylcine and metrogel in past Seronegative rheumatoid arthritis 08/17/2005 Overview (07/12/2024): I SERO NEG Initial response but eventual lack of control on sulfasalazine 4282-1437 Methotrexate gave partial response 2004-; Good response on Enbrel since 01/2006. PPD neg 2007 at work; negative again 2013 Change to Humira Jun 2014 because of failing response of Enbrel Encounters Date Type Department Care Team Description 10/14/2024 2:00 PM EST - 10/14/2024 11:59 PM EST [facility] [address] [address] Encounter for screening mammogram for breast cancer Discharge Disposition: Home or Self Care 10/02/2024 10:30 AM EST Office Visit Adult Medicine [address] [address] Lori Joya MD Depression, unspecified depression type (Primary Dx); Vitamin D deficiency; Seronegative rheumatoid arthritis (CMS/HCC); Hypercholesteremia; Gastroesophageal reflux disease with esophagitis without hemorrhage from Last 3 Months Immunizations Name Administration Dates Next Due Influenza Quadravalent, MDCK , 0.5ml, preservative free (Flucelvax) 6mo and older 08/06/2019,08/21/2018 Influenza Quadravalent, MDCK , 0.5ml, with preservative (Flucelvax) 6mo and older 05/30/2017 Influenza trivalent, 0.5mL, preservative free (Fluarix; FluLaval; Fluzone) ages 6mo and older (Afluria) 3 years and older 06/23/2015,07/01/2014,07/23/2013,07/24,07/13/2011,10/12/2010,06/03/2008 ,09/14/2006,07/12/2005 Influenza, Unspecified 07/07/2022,06/15/2021, PPD Test 07/01/2014,12/30/2009,12/22/2005 Pneumococcal conjugate 13 va lent (Prevnar 13, PCV13) 2mo and older 11/27/2012 Pneumococcal polysaccharide 23 valent (Pneumovax 23) 2yo and older 06/03/2008 Tdap Tetanus diptheria acell ular pertussis (Boostrix; Adacel) 7yo and older 03/29/2024,05/22/2007 Surgical History Surgery Date Site/Laterality Comments OTHER SURGICAL HISTORY 07/19/2004 PROCEDURE: CT ANES IPER LWR ABD W/LAPS TUBAL LIGATION/TRANSECT; COMMENT: BLADDER SUSP WELL 07/22 VENTRAL HERNIA REPAIR 01/16/2007 PROCEDURE: HISTORICAL VTRL WALL HERNIA RE; COMMENT: incisonal hernia SECTION PROCEDURE: CT DELIVERY ONLY OTHER SURGICAL HISTORY PROCEDURE: CT LIG/TRNSXJ FLP TUBE ABDL/VAG APPR UNI/BI BREAST CYST ASPIRATION 09/18/2018 - 09/17/2019 Right Medical History Medical History Date Comments Encounter for long-term (cur rent) use of other medications DX:Encounter for long-term ( current) use of other medications Rosacea 01/22/2008 DX:Rosacea; COMM ENT: On minocylcine and metrogel Rheumatoid arthritis(714.0) 08/17/2005 DX:R heumatoid arthritis(714.0); COMMENT: SERO NEG Initial response but eventual lack of control on sulfasalzine Methotrexate gave partial response 2005-02; Good response on Enbrel since 01/2006 Cutaneous wart 11/23/2016 DX:Cutaneous war t Ankle pain, left 09/07/2020 DX:Ankle pain, left History of COVID-19 07/07/2021 DX:History o f COVID-19; COMMENT: April 2021 - mild case Bloating DX:Bloating Belching DX:Belching Epigastric pain DX:Epigastric pa in Abdominal bloating DX:Abdominal bloating Abdominal cramping DX:Abdominal cramping Duodenal ulcer DX:Duodenal ulce r Esophageal reflux DX:Esophageal reflux Hemorrhoids DX:Hemorrhoids Upper respiratory infection DX:U pper respiratory infection Family History Medical History Relation Name Comments Other: pancreatic cancer Sister Breast cancer Neg Hx Relation Name Status Comments Sister Social History Tobacco Use Types Packs/Day Years [...] AM EST Sexual Orientation Not on file Obstetrics History Para Term AB IAB SAB Ectopic Multiple Livin g Live Births 2 Last Filed Vital Signs Vital Sign Reading Time Taken Comments Blood Pressure 161/112 10/02/2024 10:43 AM EST Pulse 76 10/02/2024 10:43 AM EST Temperature 36.9 ??C (98.5 ??F) 10/02/2024 10:[address] Respiratory Rate - - Oxygen Saturation - - Inhaled Oxygen Concentration - - Weight 89.8 kg (198 lb) 10/14/2024 2:17 PM EST Height 172.7 cm (5' 8 ) 10/14/2024 2:17 PM EST Body Mass Index 30.11 10/14/2024 2:17 PM EST Plan of Treatment Upcoming Encounters Date Type Department Care Team (Late st Contact Info) Description 11/14/2024 11:00 AM EST Office Visit Adult Medicine - [place] [address] [place] [address] Fidelina Damon PA [address] [place] [address] Health Maintenance Due Date Last Done Comments Hepatitis B Vaccines (1 of 3 - 19+ 3-dose series) 02/16/1987 Cervical Cancer Screening: Pap Smear 05/09/2019 05/09/2016 Depression Screening 08/27/2022 HIV Screening 08/27/2022 Social Influencers of Health Screening 08/27/2022 COVID-19 Vaccine ( season) 2024 01/25/2024, 01/24/2022, 09/23/2021, Additional history exists Breast Cancer Screening 10/14/2026 10/14/19, 05/05/2023, 02/07/2022, Additional history exists Cholesterol Screening (Lipid Panel) 10/02/2029 10/02/2024, 06/19/2024, 06/19/2024, Additional history exists Colorectal Cancer Screening: Colonoscopy 06/19/2033 06/19/2023 Osteoporosis Screening (Bone Density Screening) 12/18/2033 12/18/2018 DTaP,Tdap,and Td Vaccines (3 - Td or Tdap) 03/29/2034 03/29/2024, 05/22/2007 Hepatitis C Screening Completed 07/29/2020 Pneumococcal Vaccine: 50+ Years Completed 04/01/2022, 11/27/2012, 06/03/2008 Pneumococcal Vaccine: Pediatrics (0 to 5 Years) and At-Risk Patients (6 to 64 Years) Aged Out 04/01/2022, 11/27/2012, 06/03/2008 No longer eligible based on patient's age to complete this topic Influenza Vaccine Completed 06/26/2024, , 06/15/2021, Additional history exists Zoster Vaccines Completed 06/26/2024, 01/25/2024 HIB Vaccines Aged Out No longer eligi ble based on patient's age to complete this topic HPV Vaccines Aged Out No longer eligi ble based on patient's age to complete this topic Hepatitis A Vaccines Aged Out No long er eligible based on patient's age to complete this topic IPV Vaccines Aged Out No longer eligi ble based on patient's age to complete this topic MMR Vaccines Aged Out No longer eligi ble based on patient's age to complete this topic Meningococcal ACWY Vaccine Aged Out N o longer eligible based on patient's age to complete this topic Meningococcal B Vacine Aged Out No lo nger eligible based on patient's age to complete this topic RSV Immunization Patients Under 20 months Aged Out No longer eligible based on patient's age to complete this topic Varicella Vaccines Aged Out No longer eligible based on patient's age to complete this topic Procedures Procedure Name Priority Date/Time Associated Diagnosis Comments MG MAMMO DIGITAL SCREENING W RONALD BILAT Routine 10/14/2024 2:26 PM EST Encounter for screening mammogram for breast cancer VITAMIN B12 Routine 10/02/2024 11:27 AM EST Depression, unspecified depression type VITAMIN D 1,25 DIHYDROXY Routine 10/02/2024 11:27 AM EST Vitamin D deficiency COMPREHENSIVE METABOLIC PANEL Routine 10/02/2024 11:27 AM EST Hypercholesteremia LIPID PANEL WITH REFLEX TO DIRECT LDL Routine 10/02/2024 11:27 AM EST Hypercholesteremia COLONOSCOPY Routine 06/19/2023 HEPATITIS C SCREENING Routine 07/29/2020 [facility] DEXA AXIAL SKELETON Routine 12/18/2018 8:08 AM EDT Asymptomatic menopausal state PAP SMEAR Routine 05/09/2016 from Last 3 Months or Most Recently Relevant to Health Maintenance Results * MG Mammo Digital Screening w Ronald bilat (10/14/2024 2:26 PM EST) Anatomical Region [...] Signed Date: 10/14/2024 15:15 ET Workstation ID: [id number] Transcribed By: Self Edit Transcribed Date: 10/14/2024 [...] 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 TISSUE DENSITY: There are scattered [...] Signed Date: 10/14/2024 15:15 ET Workstation ID: [id number] Transcribed By: Self Edit Transcribed Date: 10/14/2024 15:08 ET us Self Referral Sppl IMG BI PROCEDURES Final Resul t * (ABNORMAL) Lipid panel with reflex to direct LDL (10/02/2024 11:27 AM EST) Cholesterol 239(H) 0 - 200 mg/dL LAB CHEMISTRY METHOD 10/02/2024 1:47 PM EST [facility] Triglycerides 330(H) 0 - 150 mg/dL LAB CHEMISTRY METHOD 10/02/2024 1:47 PM EST [facility] HDL 46 >=40 mg/dL LAB CHEMISTRY METHOD 10/02/2024 1:47 PM EST [facility] LDL Calculated 127(H) 0 - 100 mg/dL LAB CHEMISTRY METHOD 10/02/2024 1:47 PM EST [facility] VLDL Cholesterol Armen 66 mg/dL LAB CHEMISTRY METHOD 10/02/2024 1:47 PM EST [facility] Non HDL Chol. (LDL+VLDL) 193(H) <145 mg/dL LAB CHEMISTRY METHOD 10/02/2024 1:47 PM EST [facility] Chol/HDL Ratio 5.2(H) 0.0 - 4.4 LAB CHEMISTRY METHOD 10/02/2024 1:47 PM EST [facility] Blood Venous blood specimen / Unknown Venipuncture / Unknown 10/02/2024 11:27 AM EST 10/02/2024 11:27 AM EST Lori Victoria MD LAB BLOOD ORDERABL ES Final Result [facility] [address] [place] [address], * (ABNORMAL) Vitamin D 1,25 dihydroxy (10/02/2024 11:27 AM EST) Vitamin D, 1, 25-Dihydroxy 124(H) 20 - 79 pg/mL 10/07/2024 9:28 PM EST [facility] Comment: Vitamin D 1, 25 dihydroxy levels should be primarily used to assess Vitamin D status in patients with renal disease and hypercalcemia. Vitamin D 1,25-dihydroxy levels are generally less than 5 pg/mL in end stage renal disease patients. The preferred initial test for assessing Vitamin D status in the general population is Vitamin D 25-hydroxy (VITD). Test performed at [facility], [facility] [place], [place] ??[address] ? [phone] Susie Morse MD, PhD - Validation Leader Blood Venous blood specimen / Unknown Venipuncture / Unknown 10/02/2024 11:27 AM EST 10/02/2024 11:27 AM EST Lori Victoria MD LAB BLOOD ORDERABL ES Final Result [facility] [address] [place] [address] * (ABNORMAL) Vitamin B12 (10/02/2024 11:27 AM EST) Pathologist [facility] Vitamin B-12 1,018(H) 250 - 900 pcg/mL LAB CHEMISTRY METHOD 10/02/2024 1:47 PM EST [facility] Blood Venous blood specimen / Unknown Venipuncture / Unknown 10/02/2024 11:27 AM EST 10/02/2024 11:27 AM EST us Lori Victoria MD LAB BLOOD ORDERABL ES Final Result Performing Organization Address [facility]/ZIP Co de Phone Number [facility] [address] [place] [address], * Comprehensive metabolic panel (10/02/2024 11:27 AM EST) [facility] Sodium 137 133 - 145 mmol/L LAB CHEMISTRY METHOD 10/02/2024 1:23 PM [facility] Potassium 3.9 3.5 - 5.5 mmol/L LAB CHEMISTRY METHOD 10/02/2024 1:23 PM [facility] Chloride 106 96 - 110 mmol/L LAB CHEMISTRY METHOD 10/02/2024 1:23 PM [facility] CO2 25 21 - 32 mmol/L LAB CHEMISTRY METHOD 10/02/2024 1:23 PM [facility] Anion Gap 6 3 - 11 LAB CHEMISTRY METHOD 10/02/2024 1:23 PM [facility] Glucose 94 70 - 100 mg/dL LAB CHEMISTRY METHOD 10/02/2024 1:23 PM [facility] BUN 12 5 - 25 mg/dL LAB CHEMISTRY METHOD 10/02/2024 1:23 PM [facility] Creatinine 0.96 0.50 - 1.10 mg/dL LAB CHEMISTRY METHOD 10/02/2024 1:23 PM [facility] eGFR 70 >=60 mL/min/1. 73m2 LAB CHEMISTRY METHOD 10/02/2024 1:23 PM [facility] Comment:Calculation based on the??Chronic Kidney Disease Epidemiology Collaboration (CKD-EPI) equation refit??without adjustment for race. BUN/Creatinine Ratio 12.5 LAB CHEMISTRY METHOD 10/02/2024 1:23 PM [facility] Calcium 8.9 8.5 - 10.5 mg/dL LAB CHEMISTRY METHOD 10/02/2024 1:23 PM [facility] AST (SGOT) 18 10 - 42 unit/L LAB CHEMISTRY METHOD 10/02/2024 1:23 PM [facility] ALT (SGPT) 32 10 - 60 unit/L LAB CHEMISTRY METHOD 10/02/2024 1:23 PM [facility] Alkaline Phosphatase 46 42 - 121 unit/L LAB CHEMISTRY METHOD 10/02/2024 1:23 PM [facility] Total Protein 7.6 6.0 - 8.0 g/dL LAB CHEMISTRY METHOD 10/02/2024 1:23 PM [facility] Albumin 4.3 3.2 - 5.0 g/dL LAB CHEMISTRY METHOD 10/02/2024 1:23 PM [facility] Total Bilirubin 0.8 0.0 - 1.4 mg/dL LAB CHEMISTRY METHOD 10/02/2024 1:23 PM [facility] Blood Venous blood specimen / Unknown Venipuncture / Unknown 10/02/2024 11:27 AM EST 10/02/2024 11:27 AM EST us Lori Victoria MD LAB BLOOD ORDERABL ES Final Result [facility] [address] [place] [address], [place] [phone] * Colonoscopy (06/19/2023) Colonoscopy 10 yr fu Anatomical Region Laterality Modality Other Historical Provider HEALTH MAINTENANCE Final Result * Hepatitis C Screening (07/29/2020) Hepatitis C Screening negative us Historical Provider HEALTH MAINTENANCE Final Result * [facility] DEXA AXIAL SKELETON (12/18/2018 8:08 AM EDT) Anatomical Region Laterality Modality Mammography 12/14/2018 9:39 AM EDT Narrative 12/18/2018 8:[address] [facility] Diagnostic Imaging Department [address] [place] [address] Patient: ??ALISON JENNINGS ?/Age/Sex: 1970 - 48 - F Unit#: ??[id number] ? Location/Status: ??SPDIMAM/REG CLI ? Mnemonic/Ordering Site: ??MAMDEXAAX/SPMAM Ordering Physician: ??LETY MARQUEZ MD [facility] Dexa Axial Skeleton - 12/17/181708 HISTORY: ??The patient is a 48-year-old postmenopausal female with clinical concern for metabolic bone disease. FINDINGS: ??Dual energy x-ray absorptiometry of the lumbar spine and femurs is performed. The mean bone mineral density at L1-L4 is 1.279 gm/cm2 which is 108% of that of young normals and 107% of that of age matched controls. This yields a T-score of 0.8 and a Z-score of 0.7 and there is therefore no evidence of osteoporosis or osteopenia here. The mean bone mineral density of the femurs bilaterally is 1.159 gm/cm2 which is 115% of that of young normals and 116% of that of age matched controls. ??This yields a T-score of 1.2 and a Z-score of 1.3 and there is therefore no evidence of osteoporosis or osteopenia here. IMPRESSION: 1. There is no evidence of osteoporosis or osteopenia. 2. FRAX analysis yields a 10-year probability of major osteoporotic fracture of 4.7% and a 10-year probability of hip fracture of 0.1%. Code 03330 Dictating Physician: ??MICHEL VILLANUEVA MD Electronically Signed by: ??MICHEL VILLANUEVA MD Dic Date/Time: ??12/18/18 0807 Sign date/Time: ??12/18/18 0808 Procedure Note Michel Villanueva MD - 09/06/2022 [facility] Diagnostic Imaging Department [address] [place] [address] Patient: ALISON JENNINGS./Age/Sex: 1970 - 48 - F Unit#: [id number] Location/Status: [facility] Mnemonic/[facility]ing [facility] Ordering Physician: LETY MARQUEZ MD [facility] Dexa Axial Skeleton - 12/17/18 1703 HISTORY: The patient is a 48-year-old postmenopausal female withclinical concern for metabolic bone disease. FINDINGS: Dual energy x-ray absorptiometry of the lumbar spine and femursis performed. The mean bone mineral density at L1-L4 is 1.279 gm/cm2 which is108% of that of young normals and 107% of that of age matched controls. Thisyields a T-score of 0.8 and a Z-score of 0.7 and there is therefore no evidenceof osteoporosis or osteopenia here. The mean bone mineral density of the femurs bilaterally is 1.159 gm/pa4cnavk is 115% of that of young normals and 116% of that of age matched controls.This yields a T-score of 1.2 and a Z-score of 1.3 and there is therefore noevidence of osteoporosis or osteopenia here. IMPRESSION: 1. There is no evidence of osteoporosis or osteopenia. 2. FRAX analysis yields a 10-year probability of major osteoporoticfracture of 4.7% and a 10-year probability of hip fracture of 0.1%. Code 72752 Dictating Physician: MICHEL VILLANUEVA MD Electronically Signed by: MICHEL VILLANUEVA MD Dic Date/Time: 12/18/18 0807 Sign date/Time: 12/18/18 0808 Lety Marquez MD IMG BI PROCEDURES Final Resu lt * Pap Smear (05/09/2016) Pap smear no interpretation , abstracted Historical Provider HEALTH MAINTENANCE Final Result from Last 3 Months or Most Recently Relevant to Health Maintenance Insurance [facility] Care Teams Phlebotomist Relationship Specialty Start Date End Date Lori Victoria MD [address] [place] [address] [facility] [place] [address] PCP - General Internal Medicine 02/22/16
== END 2024-11-06 11:23 | disposition home or self-care (01) ==
PROVIDERS: PCP Internal Medicine; Visit Provider Internal Medicine Rheumatology
DX: M05.761 Rheumatoid arthritis with rheumatoid factor of right knee without organ or systems involvement (principal); M05.762 Rheumatoid arthritis with rheumatoid factor of left knee without organ or systems involvement; Z79.899 Other long term (current) drug therapy
CPT/HCPCS: 99214

== ENCOUNTER 2024-11-06 10:08 | Outpatient (REF) | payer BC, SELFPAY ==
--- OUTSIDE RECORDS SUMMARY | 2024-11-06 12:08 | XMS_ITS | Encounter Summary ---
Author Organization [facility] Address [address] [place] [address] Care Team Providers Care Aircraft Log Clerk Name Role Phone Lori Victoria MD Primary Care Prov ider Reason for Referral * Imaging (Routine) - Closed Specialty Diagnoses / Procedures Referred By Contac t Referred To Contact Radiology Diagnoses Encounter for screening mammogram for breast cancer Procedures MG Mammo Digital Screening w Joshua bilat Sppl, Self Referral [facility] Referral ID Status Reason Start Date Expiration Date Visits Re quested Visits Authorized [id number] Closed 10/08/2024 10/08/2025 1 1 * Imaging (Routine) - Closed Specialty Diagnoses / Procedures Referred By Contac t Referred To Contact Radiology Diagnoses Encounter for screening mammogram for breast cancer Procedures MG Mammo Digital Screening w Joshua bilat Sppl, Self Referral [facility] [place] Referral ID Status Reason Start Date Expiration Date Visits Re quested Visits Authorized [id number] Closed 10/08/2024 10/08/2025 1 1 Reason for Visit * Imaging (Routine) - Closed Specialty Diagnoses / Procedures Referred By Contac t Referred To Contact Radiology Diagnoses Encounter for screening mammogram for breast cancer Procedures MG Mammo Digital Screening w Joshua bilat Sppl, Self Referral [facility] [place] Referral ID Status Reason Start Date Expiration Date Visits Re quested Visits Authorized [id number] Closed 10/08/2024 10/08/2025 1 1 Encounter Details Date Type Department Care Team (Latest Contact Info) Description 10/14/2024 2:00 PM EST - 10/14/2024 11:59 PM EST [facility] [address] [address] Encounter for screening mammogram for [...] 11:00 AM EST Office Visit Adult Medicine [facility] [address] [place] [address] Fidelina Damon PA [address] [place] [address] documented as of this encounter Procedures Procedure [...] Signed Date: 10/14/2024 15:15 ET Workstation ID: [id number] Transcribed By: Self Edit Transcribed Date: 10/14/2024 [...] Signed Date: 10/14/2024 15:15 ET Workstation ID: [id number] Transcribed By: Self Edit Transcribed Date: 10/14/2024 15:08 ET us Self Referral Sppl IMG BI PROCEDURES Final Resul t documented in this encounter Visit Diagnoses Diagnosis Encounter for screening mammogram for breast cancer documented in this encounter Care Teams Aircraft Log Clerk Relationship Specialty Start Date End Date Lori Victoria MD [address] [place] [address] PCP - General Internal Medicine 02/22/16 documented as of this encounter
--- OUTSIDE RECORDS SUMMARY | 2024-11-06 12:09 | XMS_ITS | Clinical Summary ---
Author Organization 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 PPD neg 2007 at work; negative again 2013 Change to Humira Jun 2014 because of failing response of Enbrel Encounters Date Type Department Care Team Description 10/14/2024 2:00 PM EST - 10/14/2024 11:59 PM EST [facility] [address] [address] Encounter for screening mammogram for breast cancer Discharge Disposition: Home or Self Care 10/02/2024 10:30 AM EST Office Visit Adult Medicine [address] [address] Lori Joya MD Depression, unspecified [...] Site/Laterality Comments OTHER SURGICAL HISTORY 07/19/2004 PROCEDURE: [place] ANES IPER LWR ABD W/LAPS TUBAL LIGATION/TRANSECT; COMMENT: BLADDER SUSP WELL 07/22 VENTRAL HERNIA REPAIR 01/16/2007 PROCEDURE: HISTORICAL VTRL WALL HERNIA RE; COMMENT: incisonal hernia SECTION PROCEDURE: PA DELIVERY ONLY OTHER SURGICAL HISTORY PROCEDURE: [place] LIG/TRNSXJ FLP TUBE ABDL/VAG APPR UNI/BI BREAST [...] AM EST Office Visit Adult Medicine - [place] [address] [place] [address] Fidelina Damon PA [address] [place] [address] Health Maintenance Due Date Last Done Comments [...] Routine 06/19/2023 HEPATITIS C SCREENING Routine 07/29/2020 [facility] DEXA AXIAL SKELETON Routine 12/18/2018 8:08 AM [...] Signed Date: 10/14/2024 15:15 ET Workstation ID: [id number] Transcribed By: Self Edit Transcribed Date: 10/14/2024 [...] 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 TISSUE DENSITY: There are scattered [...] Signed Date: 10/14/2024 15:15 ET Workstation ID: [id number] Transcribed By: Self Edit Transcribed Date: 10/14/2024 15:08 ET us Self Referral Sppl IMG BI PROCEDURES Final Resul t * (ABNORMAL) Lipid panel with reflex to direct LDL (10/02/2024 11:27 AM EST) Cholesterol 239(H) 0 - 200 mg/dL LAB CHEMISTRY METHOD 10/02/2024 1:47 PM EST [facility] Triglycerides 330(H) 0 - 150 mg/dL LAB CHEMISTRY METHOD 10/02/2024 1:47 PM EST [facility] HDL 46 >=40 mg/dL LAB CHEMISTRY METHOD 10/02/2024 1:47 PM EST [facility] LDL Calculated 127(H) 0 - 100 mg/dL LAB CHEMISTRY METHOD 10/02/2024 1:47 PM EST [facility] VLDL Cholesterol Armen 66 mg/dL LAB CHEMISTRY METHOD 10/02/2024 1:47 PM EST [facility] Non HDL Chol. (LDL+VLDL) 193(H) <145 mg/dL LAB CHEMISTRY METHOD 10/02/2024 1:47 PM EST [facility] Chol/HDL Ratio 5.2(H) 0.0 - 4.4 LAB CHEMISTRY METHOD 10/02/2024 1:47 PM EST [facility] Blood Venous blood specimen / Unknown Venipuncture / Unknown 10/02/2024 11:27 AM EST 10/02/2024 11:27 AM EST Lori Victoria MD LAB BLOOD ORDERABL ES Final Result [facility] [address] [place] [address], * (ABNORMAL) Vitamin D 1,25 dihydroxy (10/02/2024 [...] Vitamin D 25-hydroxy (VITD). Test performed at [facility], [facility] [place], [place] ??[address] ? [phone] Susie Morse MD, PhD - [employer] Aircraft Mechanic Blood Venous blood specimen / Unknown Venipuncture / Unknown 10/02/2024 11:27 AM EST 10/02/2024 11:27 AM EST Lori Victoria MD LAB BLOOD ORDERABL ES Final Result [facility] [address] [place] [address] * (ABNORMAL) Vitamin B12 (10/02/2024 11:27 AM EST) Pathologist [facility] Vitamin B-12 1,018(H) 250 - 900 pcg/mL LAB CHEMISTRY METHOD 10/02/2024 1:47 PM EST [facility] Blood Venous blood specimen / Unknown Venipuncture / Unknown 10/02/2024 11:27 AM EST 10/02/2024 11:27 AM EST us Lori Victoria MD LAB BLOOD ORDERABL ES Final Result Performing Organization Address [facility]/ZIP Co de Phone Number [facility] [address] [place] [address], * Comprehensive metabolic panel (10/02/2024 11:27 AM EST) [facility] Sodium 137 133 - 145 mmol/L LAB CHEMISTRY METHOD 10/02/2024 1:23 PM [facility] Potassium 3.9 3.5 - 5.5 mmol/L LAB CHEMISTRY METHOD 10/02/2024 1:23 PM [facility] Chloride 106 96 - 110 mmol/L LAB CHEMISTRY METHOD 10/02/2024 1:23 PM [facility] CO2 25 21 - 32 mmol/L LAB CHEMISTRY METHOD 10/02/2024 1:23 PM [facility] Anion Gap 6 3 - 11 LAB CHEMISTRY METHOD 10/02/2024 1:23 PM [facility] Glucose 94 70 - 100 mg/dL LAB CHEMISTRY METHOD 10/02/2024 1:23 PM [facility] BUN 12 5 - 25 mg/dL LAB CHEMISTRY METHOD 10/02/2024 1:23 PM [facility] Creatinine 0.96 0.50 - 1.10 mg/dL LAB CHEMISTRY METHOD 10/02/2024 1:23 PM [facility] eGFR 70 >=60 mL/min/1. 73m2 LAB CHEMISTRY METHOD 10/02/2024 1:23 PM [facility] Comment:Calculation based on the??Chronic Kidney Disease Epidemiology Collaboration (CKD-EPI) equation refit??without adjustment for race. BUN/Creatinine Ratio 12.5 LAB CHEMISTRY METHOD 10/02/2024 1:23 PM [facility] Calcium 8.9 8.5 - 10.5 mg/dL LAB CHEMISTRY METHOD 10/02/2024 1:23 PM [facility] AST (SGOT) 18 10 - 42 unit/L LAB CHEMISTRY METHOD 10/02/2024 1:23 PM [facility] ALT (SGPT) 32 10 - 60 unit/L LAB CHEMISTRY METHOD 10/02/2024 1:23 PM [facility] Alkaline Phosphatase 46 42 - 121 unit/L LAB CHEMISTRY METHOD 10/02/2024 1:23 PM [facility] Total Protein 7.6 6.0 - 8.0 g/dL LAB CHEMISTRY METHOD 10/02/2024 1:23 PM [facility] Albumin 4.3 3.2 - 5.0 g/dL LAB CHEMISTRY METHOD 10/02/2024 1:23 PM [facility] Total Bilirubin 0.8 0.0 - 1.4 mg/dL LAB CHEMISTRY METHOD 10/02/2024 1:23 PM [facility] Blood Venous blood specimen / Unknown Venipuncture / Unknown 10/02/2024 11:27 AM EST 10/02/2024 11:27 AM EST us Lori Victoria MD LAB BLOOD ORDERABL ES Final Result [facility] [address] [place] [address], [place] [phone] * Colonoscopy (06/19/2023) Colonoscopy 10 yr fu Anatomical Region Laterality Modality Other Historical Provider HEALTH MAINTENANCE Final Result * Hepatitis C Screening (07/29/2020) Hepatitis C Screening negative us Historical Provider HEALTH MAINTENANCE Final Result * [facility] DEXA AXIAL SKELETON (12/18/2018 8:08 AM EDT) Anatomical Region Laterality Modality Mammography 12/14/2018 9:39 AM EDT Narrative 12/18/2018 8:08 AM EDT [facility] Diagnostic Imaging Department [address] [place] [id number] Patient: ??ALISON JENNINGS ?/Age/Sex: 1970 - 48 - F Unit#: ??[id number] ? Location/Status: ??SPDIMAM/REG CLI ? Mnemonic/Ordering Site: ??MAMDEXAAX/SPMAM Ordering Physician: ??LETY MARQUEZ MD [facility] Dexa Axial Skeleton - 12/17/181708 [...] probability of hip fracture of 0.1%. Code 42794 Dictating Physician: ??MICHEL VILLANUEVA MD Electronically Signed by: ??MICHEL VILLANUEVA MD Dic Date/Time: ??12/18/18 0807 Sign date/Time: ??12/18/18 0808 Procedure Note Michel Villanueva MD - 09/06/2022 [facility] Diagnostic Imaging Department [address] [place] [address] Patient: ALISON JENNINGS./Age/Sex: 1970 - 48 - F Unit#: [id number] Location/Status: [facility] Ordering Physician: LETY MARQUEZ MD [facility] Dexa Axial Skeleton - 12/17/18 1700 HISTORY: The patient is a 48-year-old postmenopausal [...] density of the femurs bilaterally is 1.159 gm/io6ehtyc is 115% of that of young normals [...] probability of hip fracture of 0.1%. 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
[2024-11-06 18:10] LABS: MANUAL DIFF FLAG NO
[2024-11-06 18:27] LABS: Alanine Aminotransferase 21 U/L (0-31); Aspartate Amino Transferase 23 U/L (5-31); Basophils Percent Auto 0.4 % (0-2); C Reactive Protein 1.25 mg/dL (< or = 0.50); Eosinophils Absolute Auto 0.1 X10*3/uL (0.0-0.4); Eosinophils Percent Auto 1.8 % (0-4); Estimated Glomerular Filt Rate > 60; Hematocrit 39.4 % (37.0-47.0); Hemoglobin 13.2 g/dl (12.0-16.0); Imm Gran Abs Auto 0.02 X10*3/uL (0.00-0.03); Imm Gran Pct Auto 0.3 % (0.0-0.4); Lymphocytes Absolute Auto 1.3 X10*3/uL (1.2-4.9); Lymphocytes Percent Auto 19.4 % (20-40); Mean Corpuscular HGB Conc 33.5 g/dl (31.0-35.0); Mean Corpuscular Hemoglobin 32.3 pg (27.0-33.0); Mean Corpuscular Volume 96.3 fL (80.0-98.0); Monocytes Absolute Auto 0.6 X10*3/uL (0.1-1.2); Monocytes Percent Auto 9.3 % (2-11); Neutrophils Absolute Auto 4.6 x10*3/uL (2.0-8.3); Neutrophils Percent Auto 68.8 % (45-73); Platelet Count 284 X10*3/uL (160-400); Red Blood Count 4.09 X10*6/uL (4.20-5.50); Red Cell Distribution Width 12.4 % (11.0-16.0); White Blood Count 6.7 X10*3/uL (4.8-10.8)
[2024-11-06 18:55] LABS: Erythrocyte Sedimentation Rate 12 MM/HR (0-20)
== END 2024-11-06 10:09 | disposition home or self-care (01) ==
LOC: HO.HKASLDS 10:08
PROVIDERS: PCP Internal Medicine; Visit Provider Internal Medicine Rheumatology
DX: M05.761 Rheumatoid arthritis with rheumatoid factor of right knee without organ or systems involvement (principal); M05.762 Rheumatoid arthritis with rheumatoid factor of left knee without organ or systems involvement; L70.0 Acne vulgaris; Z79.622 Long term (current) use of Janus kinase inhibitor; Z79.631 Long term (current) use of antimetabolite agent
CPT/HCPCS: 36415; 82565; 84450; 84460; 85025; 85652; 86140

== ENCOUNTER 2025-01-09 11:06 | Outpatient (REF) | payer BC, SELFPAY ==
--- OUTSIDE RECORDS SUMMARY | 2025-01-09 13:09 | XMS_ITS | Clinical Summary ---
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 Activ e famotidine (Pepcid) 20 mg tablet Take 1 tablet (20 mg total) by mouth 2 (two) times a day. 60 each 10/02/19 25 026 Active gemfibroziL (LOPID) 600 mg tablet TAKE 1 TABLET BY MOUTH 2 TIMES DAILY (BEFORE MEALS) FOR 30 DAYS. Active albuterol HFA (ProAir HFA) 90 mcg/actuation inhaler Inhale 2 puffs by mouth every 4 (four) hours if needed for wheezing or shortness of breath. 8.5 g 11/14/19 25 026 Active sertraline (ZOLOFT) 50 mg tablet Take 1 tablet (50 mg total) by mouth 1 (one) time each day. 90 each 1 12/28/19 25 025 Active cholecalcifer ol (VITAMIN D-3) 125 mcg (5,000 unit) capsule Take 1 capsule (5,000 Units total) by mouth 1 (one) time each day. 025 Discontinued cimetidine (TAGAMET) 400 mg tablet Take 1 tablet (400 mg total) by mouth 2 (two) times a day. 04/22/20 025 Discontinued estradioL (ESTRACE) 0.5 mg tablet Take 1 tablet (0.5 mg total) by mouth. 12/03/19 025 Discontinued aluminum-magn esium hydroxide-sim ethicone (Antacid-Anti gas) 200-200-20 mg/5 mL suspension TAKE 15 ML BY MOUTH 3 TIMES DAILY NEEDED (HEARTBURN, BURNING IN ESOPAHGUS, DUODENAL ULCER). 11/01/19 025 Discontinued medroxyPROGES TERone (PROVERA) 10 mg tablet Take 1 tablet (10 mg total) by mouth 1 (one) time each day. 02/18/20 025 Discontinued LORazepam (Ativan) 0.5 mg tablet Take 1 tab prior to procedure 2 tablet 08/02/20 025 Discontinued Rinvoq 15 mg tablet extended release 24 hr Take 15 mg by mouth 1 (one) time each day. 09/21/19 025 Discontinued sertraline (ZOLOFT) 50 mg tablet Take 1 tablet (50 mg total) by mouth 1 (one) time each day. 30 each 1 11/14/19 025 Discontinued(R eorder) benzonatate (TESSALON) 100 mg capsule Take 1 capsule (100 mg total) by mouth 3 (three) times a day if needed for cough. Do not crush or chew. 42 capsule 11/14/19 025 Active Problems Problem Noted Date Diagnosed Date Depression 11/14/2024 Hypercholesteremia 11/14/2024 Gastroesophageal reflux dise ase with esophagitis without hemorrhage 11/14/2024 Epigastric abdominal pain 01/03/2023 Umbilical hernia without [...] minocylcine and metrogel in past Seronegative rheumatoid arth ritis ([facility] V24, [facility] V28) 08/17/2005 Overview (07/12/2024): I SERO NEG Initial response but eventual lack of control on sulfasalazine [id number] Methotrexate gave partial response 2004-; Good response on Enbrel since 01/2006. PPD neg 2007 at work; negative again 2013 Change to Humira Jun 2014 because of failing response of Enbrel Resolved Problems Problem Noted Date Diagnosed Date Resolved Date SOB (shortness of breath) 11/14/2024 Encounters Date Type Department Care Team Description 12/27/2024 10:30 AM EDT Office Visit Adult [address] [address] Fidelina Damon PA Gastroesophageal reflux disease with esophagitis without hemorrhage (Primary Dx); Hypercholesteremia; Seronegative rheumatoid arthritis ([facility] V24, [facility] V28); Depression, unspecified depression type 11/14/2024 11:30 AM EST - 11/14/2024 11:59 PM EST Hospital Encounter Xray - [place] [address] [place] [address] Acute cough; SOB (shortness of breath) Discharge Disposition: Home or Self Care 11/14/2024 11:00 AM EST Office Visit Adult [facility] [address] [place] [address] Fidelina Damon PA Acute cough (Primary Dx); SOB (shortness of breath); Gastroesophageal reflux disease with esophagitis without hemorrhage; Depression, unspecified depression type; Seronegative rheumatoid arthritis ([facility] V24, [facility] V28); Hypercholesteremia 10/14/2024 2:00 PM EST - 10/14/2024 11:59 PM EST [facility] [address] [address] Encounter for screening mammogram for breast cancer; Encounter for screening mammogram for malignant neoplasm of breast Discharge Disposition: Home or Self Care from Last 3 Months Immunizations Name Administration [...] Site/Laterality Comments OTHER SURGICAL HISTORY 07/19/2004 PROCEDURE: [place] ANES IPER LWR ABD W/LAPS TUBAL LIGATION/TRANSECT; COMMENT: BLADDER SUSP WELL 07/22 VENTRAL HERNIA REPAIR 01/16/2007 PROCEDURE: HISTORICAL VTRL WALL HERNIA RE; COMMENT: incisonal hernia SECTION PROCEDURE: [place] DELIVERY ONLY OTHER SURGICAL HISTORY PROCEDURE: [place] LIG/TRNSXJ FLP TUBE ABDL/VAG APPR UNI/BI BREAST [...] Date Smoking Tobacco: Never Smokeless Tobacco: Never Tobacco Cessation:Counseling Given: No Alcohol Use Standard Drinks/Week Comments No 0 [...] Sign Reading Time Taken Comments Blood Pressure 118/80 12/27/2024 10:27 AM EDT Pulse 73 12/27/2024 10:27 AM EDT Temperature 36.4 ??C (97.6 ??F) 12/27/2024 10:27 AM E DT Respiratory Rate - - Oxygen Saturation - - Inhaled Oxygen Concentration - - Weight 89.8 kg (198 lb) 12/27/2024 10:27 AM EDT Height 172.7 cm (5' 8 ) 10/14/2024 2:17 PM EST Body Mass Index 30.11 10/14/2024 2:17 PM EST Plan of Treatment Upcoming Encounters Date Type Department Care Team (Late st Contact Info) Description 03/28/2025 10:30 AM EDT Office Visit Adult Medicine [facility] [address] [place] [address] Fidelina Damon PA [address] [place] [address] Health Maintenance Due Date Last Done Comments Hepatitis B Vaccines (1 of 3 - 19+ 3-dose series) 02/16/1987 Cervical Cancer Screening: Pap Smear 05/09/2019 05/09/2016 Depression Screening 08/27/2022 HIV Screening 08/27/2022 Social Influencers of Health Screening 08/27/2022 COVID-19 Vaccine ( season) 2024 01/25/2024, 01/24/2022, 09/23/2021, Additional history exists Breast Cancer Screening 10/14/2026 10/14/19, 05/05/2023, 02/07/2022, Additional history exists Cholesterol Screening (Lipid Panel) 12/27/2029 12/27/2024, 10/02/2024, 06/19/2024, Additional history exists Colorectal Cancer Screening: [...] age to complete this topic Meningococcal B Vaccine Aged Out No l onger eligible based on patient's age to complete this topic RSV Immunization Patients Under 20 months Aged Out No longer eligible based on patient's age to complete this topic Varicella Vaccines Aged Out No longer eligible based on patient's age to complete this topic Procedures Procedure Name Priority Date/Time Associated Diagnosis Comments COMPREHENSIVE METABOLIC PANEL Routine 12/27/2024 10:55 AM EDT Hypercholesteremia LIPID PANEL WITH REFLEX TO DIRECT LDL Routine 12/27/2024 10:55 AM EDT Hypercholesteremia XR CHEST 2 VIEWS Routine 11/14/2024 11:4 5 AM EST Acute cough SOB (shortness of breath) MG MAMMO DIGITAL SCREENING W RONALD BILAT Routine 10/14/2024 2:26 PM EST Encounter for screening mammogram for breast cancer COLONOSCOPY Routine 06/19/2023 HEPATITIS C SCREENING Routine 07/29/2020 [facility] DEXA AXIAL SKELETON Routine 12/18/2018 8:08 AM EDT Asymptomatic menopausal state PAP SMEAR Routine 05/09/2016 from Last 3 Months or Most Recently Relevant to Health Maintenance Results * (ABNORMAL) Lipid panel with reflex to direct LDL (12/27/2024 10:55 AM EDT) Cholesterol 256(H) 0 - 200 mg/dL LAB CHEMISTRY METHOD 12/27/2024 3:30 PM EDT [facility] Triglycerides 177(H) 0 - 150 mg/dL LAB CHEMISTRY METHOD 12/27/2024 3:30 PM EDT [facility] HDL 45 >=40 mg/dL LAB CHEMISTRY METHOD 12/27/2024 3:30 PM EDT [facility] LDL Calculated 176(H) 0 - 100 mg/dL LAB CHEMISTRY METHOD 12/27/2024 3:30 PM EDT [facility] VLDL Cholesterol Armen 35.4 mg/dL LAB CHEMISTRY METHOD 12/27/2024 3:30 PM EDT [facility] Non HDL Chol. (LDL+VLDL) 211(H) <145 mg/dL LAB CHEMISTRY METHOD 12/27/2024 3:30 PM EDT [facility] Chol/HDL Ratio 5.7(H) 0.0 - 4.4 LAB CHEMISTRY METHOD 12/27/2024 3:30 PM EDT [facility] Blood Venous blood specimen / Unknown Venipuncture / Unknown 12/27/2024 10:55 AM EDT 12/27/2024 10:55 AM EDT Fidelina RODRIGUES LAB BLOOD ORDERABLES Final Result [facility] [address] [place] [address], * (ABNORMAL) Comprehensive metabolic panel (12/27/2024 10:55 AM EDT) Pathologist [facility] Sodium 139 133 - 145 mmol/L LAB CHEMISTRY METHOD 12/27/2024 3:30 PM EDT [facility] Potassium 4.1 3.5 - 5.5 mmol/L LAB CHEMISTRY METHOD 12/27/2024 3:30 PM [facility] Comment:Hemolysis present Chloride 105 96 - 110 mmol/L LAB CHEMISTRY METHOD 12/27/2024 3:30 PM [facility] CO2 27 21 - 32 mmol/L LAB CHEMISTRY METHOD 12/27/2024 3:30 PM [facility] Anion Gap 7 3 - 11 LAB CHEMISTRY METHOD 12/27/2024 3:30 PM [facility] Glucose 101(H) 70 - 100 mg/dL LAB CHEMISTRY METHOD 12/27/2024 3:30 PM [facility] BUN 21 5 - 25 mg/dL LAB CHEMISTRY METHOD 12/27/2024 3:30 PM [facility] Creatinine 0.95 0.50 - 1.10 mg/dL LAB CHEMISTRY METHOD 12/27/2024 3:30 PM [facility] eGFR 70 >=60 mL/min/1. 73m2 LAB CHEMISTRY METHOD 12/27/2024 3:30 PM [facility] Comment:Calculation based on the??Chronic Kidney Disease Epidemiology Collaboration (CKD-EPI) equation refit??without adjustment for race. BUN/Creatinine Ratio 22.1 LAB CHEMISTRY METHOD 12/27/2024 3:30 PM [facility] Calcium 9.7 8.5 - 10.5 mg/dL LAB CHEMISTRY METHOD 12/27/2024 3:30 PM [facility] AST (SGOT) 39 10 - 42 unit/L LAB CHEMISTRY METHOD 12/27/2024 3:30 PM [facility] ALT (SGPT) 60 10 - 60 unit/L LAB CHEMISTRY METHOD 12/27/2024 3:30 PM [facility] Alkaline Phosphatase 64 42 - 121 unit/L LAB CHEMISTRY METHOD 12/27/2024 3:30 PM [facility] Total Protein 7.7 6.0 - 8.0 g/dL LAB CHEMISTRY METHOD 12/27/2024 3:30 PM EDT [facility] Albumin 4.2 3.2 - 5.0 g/dL LAB CHEMISTRY METHOD 12/27/2024 3:30 PM EDT [facility] Total Bilirubin 0.6 0.0 - 1.4 mg/dL LAB CHEMISTRY METHOD 12/27/2024 3:30 PM EDT [facility] Blood Venous blood specimen / Unknown Venipuncture / Unknown 12/27/2024 10:55 AM EDT 12/27/2024 10:55 AM EDT us Fidelina RODRIGUES LAB BLOOD ORDERABLES Final Result [facility] [address] [place] [address], [place] [phone] * XR Chest 2 Views (11/14/2024 11:45 AM EST) Anatomical Region Laterality Modality Body Radiographic Leann ging 11/14/2024 6:55 PM EST Impressions 11/14/2024 6:57 PM EST No evidence of an acute chest process. POS - [id number] -------- FINAL REPORT -------- Dictated By: Liya Umaña Dictated Date: 11/14/2024 18:55 ET Assigned Physician: Liya Umaña Reviewed and Electronically Signed By: Liya Umaña Signed Date: 11/14/2024 18:57 ET Workstation ID: [id number] Transcribed By: Self Edit Transcribed Date: 11/14/2024 18:55 ET Narrative 11/14/2024 6:57 PM EST EXAM: Chest x-ray HISTORY: ??Acute cough and shortness of breath. COMPARISON: 11/18/2022 FINDINGS: PA and lateral views of the chest were performed. ?? No focal infiltrate, pleural effusion, or evidence of pulmonary edema. Heart is not enlarged. ??Mediastinal contours are stable. ??Mild degenerative changes in the spine. No compression deformities. Procedure Note Liya Umaña MD - 11/14/2024 EXAM: Chest x-ray HISTORY: Acute cough and shortness of breath. COMPARISON: 11/18/2022 FINDINGS: PA and lateral views of the chest were performed. No focal infiltrate, pleural effusion, or evidence of pulmonary edema.Heart is not enlarged. Mediastinal contours are stable. Milddegenerative changes in the spine. No compression deformities. IMPRESSION: No evidence of an acute chest process. POS - [id number] -------- FINAL REPORT -------- Dictated By: Liya Umaña Dictated Date: 11/14/2024 18:55 ET Assigned Physician: Liya Umaña Reviewed and Electronically Signed By: Liya Umaña Signed Date: 11/14/2024 18:57 ET Workstation ID: [id number] Transcribed By: Self Edit Transcribed Date: 11/14/2024 18:55 ET us Fidelina RODRIGUES IMG XR PROCEDURES Final Re sult * MG Mammo Digital Screening w Ronald [...] Signed Date: 10/14/2024 15:15 ET Workstation ID: [id number] Transcribed By: Self Edit Transcribed Date: 10/14/2024 [...] Signed Date: 10/14/2024 15:15 ET Workstation ID: [id number] Transcribed By: Self Edit Transcribed Date: 10/14/2024 15:08 ET us Self Referral Sppl IMG BI PROCEDURES Final Resul t * Colonoscopy (06/19/2023) Colonoscopy 10 yr fu Anatomical Region Laterality Modality Other Historical Provider HEALTH MAINTENANCE Final Result * Hepatitis C Screening (07/29/2020) Hepatitis C Screening negative Historical Provider HEALTH MAINTENANCE Final Result * [facility] DEXA AXIAL SKELETON (12/18/2018 8:08 AM EDT) Anatomical Region Laterality Modality Mammography 12/14/2018 9:39 AM EDT Narrative 12/18/2018 8:08 AM EDT [facility] Diagnostic Imaging Department [address] [place] [address] Patient: ??ALISON JENNINGS ?/Age/Sex: 1970 - 48 - F Unit#: ??[id number] ? Location/Status: ??SPDIMAM/REG CLI ? Mnemonic/Ordering Site: ??MAMDEXAAX/SPMAM Ordering Physician: ??LETY MARQUEZ MD [facility] Dexa Axial Skeleton - 12/17/181708 HISTORY: ??The [...] probability of hip fracture of 0.1%. Code 72097 Dictating Physician: ??MICHEL VILLANUEVA MD Electronically Signed by: ??MICHEL VILLANUEVA MD Dic Date/Time: ??12/18/18 0807 Sign date/Time: ??12/18/18 0808 Procedure Note Michel Villanueva MD - 09/06/2022 [facility] Diagnostic Imaging Department [address] [place] [address] Patient: ALISON JENNINGS D.O.B./Age/Sex: 1970 - 48 - F Unit#: [id number] [facility] Ordering Physician: LETY MARQUEZ MD [facility] Dexa Axial Skeleton - 12/17/18 - 1704 HISTORY: The patient is a 48-year-old postmenopausal [...] density of the femurs bilaterally is 1.159 gm/sb2rpwpt is 115% of that of young normals [...] probability of hip fracture of 0.1%. Code 46359 Dictating Physician: MICHEL VILLANUEVA MD Electronically Signed by: MICHEL VILLANUEVA MD Dic Date/Time: 12/18/18 0807 Sign date/Time: 12/18/18 0808 Lety Marquez MD IMG BI PROCEDURES Final Resu lt * Hm Pap Smear (05/09/2016) HM Pap smear no interpretation , abstracted Historical Provider HEALTH MAINTENANCE Final Result from Last 3 Months or Most Recently Relevant to Health Maintenance Insurance [facility] Care Teams Industrial Real Estate Agent Relationship Specialty Start Date End Date Lori Victoria MD [address] [place] [address] [place] [address] PCP - General Internal Medicine 02/22/16
[2025-01-09 17:39] LABS: MANUAL DIFF FLAG NO
[2025-01-09 17:49] LABS: Basophils Percent Auto 0.7 % (0-2); Eosinophils Absolute Auto 0.2 X10*3/uL (0.0-0.4); Hematocrit 38.3 % (37.0-47.0); Hemoglobin 12.4 g/dl (12.0-16.0); Imm Gran Abs Auto 0.01 X10*3/uL (0.00-0.03); Imm Gran Pct Auto 0.2 % (0.0-0.4); Lymphocytes Absolute Auto 1.4 X10*3/uL (1.2-4.9); Lymphocytes Percent Auto 31.3 % (20-40); Mean Corpuscular HGB Conc 32.4 g/dl (31.0-35.0); Mean Corpuscular Hemoglobin 31.6 pg (27.0-33.0); Mean Corpuscular Volume 97.5 fL (80.0-98.0); Mean Platelet Volume 10.3 fL (9.4-12.3); Monocytes Absolute Auto 0.5 X10*3/uL (0.1-1.2); Monocytes Percent Auto 10.5 % (2-11); Neutrophils Absolute Auto 2.4 x10*3/uL (2.0-8.3); Neutrophils Percent Auto 52.3 % (45-73); Platelet Count 280 X10*3/uL (160-400); Red Blood Count 3.93 X10*6/uL (4.20-5.50); Red Cell Distribution Width 12.7 % (11.0-16.0); White Blood Count 4.6 X10*3/uL (4.8-10.8)
[2025-01-09 18:13] LABS: Alanine Aminotransferase 53 U/L (0-31); Aspartate Amino Transferase 39 U/L (5-31); Estimated Glomerular Filt Rate > 60
[2025-01-09 18:26] LABS: Erythrocyte Sedimentation Rate 18 MM/HR (0-20)
[2025-01-10 04:43] LABS: CRP High Sensitivity 0.6 mg/L
== END 2025-01-09 11:07 | disposition home or self-care (01) ==
LOC: HO.HKASLDS 11:06
PROVIDERS: Visit Provider Internal Medicine Rheumatology
DX: M05.762 Rheumatoid arthritis with rheumatoid factor of left knee without organ or systems involvement (principal); M05.761 Rheumatoid arthritis with rheumatoid factor of right knee without organ or systems involvement
CPT/HCPCS: 36415; 82565; 84450; 84460; 85025; 85652; 86141

== ENCOUNTER 2025-03-06 08:12 | Outpatient (AMB) | payer BC, SELFPAY ==
--- NOTE | 2025-03-06 08:13 | A.OFFVIS_ITS ---
Vital Signs 03/06/25 08:18 Height 5 ft 8 in Weight 199 lb 8 oz BMI 30.3 BP 124/80 Blood Pressure Location Rt brachial Position Sitting Pulse 77 Pulse Source Pulse Oximeter Pulse Oximetry (%) 96 Oxygen Delivery Method Room Air Intake Visit Reasons: 3 Months Intake Note: Patient presents for RA follow up. Allergies tofacitinib (From Xeljanz) Allergy (Mild, Verified 03/06/25 08:18) Hives Sulfa (Sulfonamide Antibiotics) Allergy (Unknown, Verified 03/06/25 08:18) Hives HPI HPI 3 Months: Details: MS half an hour Feels well. Thumb pain No recent infection Facial rash has resolved PFSH Medical History PUD (peptic ulcer disease) Endometrial polyp Incisional hernia Rheumatoid arthritis Surgical History H/O colonoscopy Social History Alcohol intake: never Patient Tobacco Use Status: Never used Tobacco Physical Exam Vital Signs: Last Vital Signs Pulse 77 03/06/25 08:18 BP 124/80 03/06/25 08:18 Pulse Ox 96 03/06/25 08:18 Oxygen Delivery Method Room Air 03/06/25 08:18 BMI result Body Mass Index 30.3 Const Other: General: Comfortable CVS: RRR Respiratory: clear to auscultation bilaterally. Good respiratory effort Skin: Comedones present on cheeks and chin. MSK: Bilateral z fingers present. Tender right 1st CP with synovitis present. Squaring of CMCs. Ulnar deviation right hand. Normal range of motion of upper extremities and lower extremities. Assessment & Plan Assessment & Plan (1) Rheumatoid arthritis: Comment: Disease is controlled on cimzia and methotrexate (reduced 2/2 transaminitis). She has right for his MCP pain with synovitis-pain is tolerable. We discussed treatment with local cortisone injection in setting of transaminitis. Rheumatology history: Low titer positive rheumatoid factor. Erosive inflammatory arthritis. Failed sulfasalazine 1998 to 2004, methotrexate 2004 to 2005 with partial response, Enbrel secondary treatment failure January 2006 to 06/2014, Humira 06/2014 to 12/2022. Simponi 01/24/2023. Orencia 05/2023 to 09/2023 discontinued due to recurrent infections. Methotrexate restarted 07/07/2023 to present. Xeljanz effective 11/2023 to 03/2024 discontinued due to facial rash. Rinvoq effective 03/2024-10/2024 discontinued due to facial rash. Cimzia 11/2024- Code(s): M06.9 - Rheumatoid arthritis, unspecified Category: Medical Qualifiers: Rheumatoid arthritis location: knee Rheumatoid factor presence: with rheumatoid factor Laterality: bilateral Qualified Code(s): M05.761 - Rheumatoid arthritis with rheumatoid factor of right knee without organ or systems involvement; M05.762 - Rheumatoid arthritis with rheumatoid factor of left knee without organ or systems involvement Plan: Continue Cimzia 200 mg every 2 weeks subcutaneous injection Labs for drug monitoring on high-risk medication ordered. If she continues to have transaminitis, I will lower methotrexate dose. If transaminitis has resolved, she can use diclofenac gel applied to right 1st MCP for pain control Continue methotrexate 15 mg once week Continue folic acid 1 mg daily Return to clinic in 3 months or sooner if needed. She will call office if right 1st MCP pain is uncontrolled for sooner visit for cortisone injection (2) Other long term care pharmacist (current) drug therapy: Code(s): Z79.899 - Other snf (current) drug therapy Category: Medical Plan: See above (3) Transaminitis: Code(s): R74.01 - Elevation of levels of liver transaminase levels Category: Medical Plan: See above Orders: Orders Erythrocyte Sedimentation Rate Today M05.761 - Rheumatoid arthritis with rheumatoid factor of right knee without organ or systems involvement, M05.762 - Rheumatoid arthritis with rheumatoid factor of left knee without organ or systems involvement, Z79.899 - Other long term care pharmacist (current) drug therapy C Reactive Protein Today M05.761 - Rheumatoid arthritis with rheumatoid factor of right knee without organ or systems involvement, M05.762 - Rheumatoid arthritis with rheumatoid factor of left knee without organ or systems involvement, Z79.899 - Other snf (current) drug therapy Creatinine Today M05.761 - Rheumatoid arthritis with rheumatoid factor of right knee without organ or systems involvement, M05.762 - Rheumatoid arthritis with rheumatoid factor of left knee without organ or systems involvement, Z79.60 - extermination supervisor (current) use of unspecified immunomodulators and immunosuppressants, Z79.899 - Other long term care pharmacist (current) drug therapy Complete Blood Count Auto Diff Today M05.761 - Rheumatoid arthritis with rheumatoid factor of right knee without organ or systems involvement, M05.762 - Rheumatoid arthritis with rheumatoid factor of left knee without organ or systems involvement, Z79.60 - extermination supervisor (current) use of unspecified imm unomodulators and immunosuppressants, Z79.899 - Other long term care pharmacist (current) drug therapy Coding Level of Care Code Est Pt Level 4 (95192) Complex EM visit Add On G2211 Diagnoses Rheumatoid arthritis involving both knees with positive rheumatoid factor M05.761; M05.762 Rheumatoid arthritis location: knee Rheumatoid factor presence: with rheumatoid factor Laterality: bilateral Other snf (current) drug therapy Z79.899 Transaminitis R74.01
[2025-03-06 08:18] VITALS: BP 124/80; PULSE 77; O2SAT 96; BMI 30.3
== END 2025-03-06 08:50 | disposition home or self-care (01) ==
PROVIDERS: PCP Internal Medicine; Visit Provider Internal Medicine Rheumatology
DX: M05.761 Rheumatoid arthritis with rheumatoid factor of right knee without organ or systems involvement (principal); M05.762 Rheumatoid arthritis with rheumatoid factor of left knee without organ or systems involvement; Z79.899 Other long term (current) drug therapy; R74.01 Elevation of levels of liver transaminase levels
CPT/HCPCS: 99214

== ENCOUNTER 2025-03-06 08:12 | Outpatient (REF) | payer BC, SELFPAY ==
--- OUTSIDE RECORDS SUMMARY | 2025-03-06 09:13 | XMS_ITS | Data Portability ---
Author Organization [place] - [facility],, LETY BURGER MD Address [address] [address] [place] [address] Care Team Providers Care Cremator Name Role Phone TISH MOONEY Primary Care Provide r Assessment No assessment recorded. Plan of Treatment Reminders Order Date Submit Date Provider Last Modified By Organization Details Last Modified Time Details Appointments None recorded. Lab biopsy, endometria l 2024 025 [email or web address] [facility] (Centralized Electronic Ordering - All Locations), Patient Can Go To The Location Of Their Choice, [id number] 07:40:02 cytology report, thin prep, smear or scraping, cervical or vaginal 2024 025 GLENIS [facility] (Centralized Electronic Ordering - All Locations), Patient Can Go To The Location Of Their Choice, [id number] 5 16:07:39 hemoglobin , gastrointe stinal, stool 2024 025 [email or web address] 1 In-Office Order, Internal Use Only DO Not Attach Compendium DO Not Attach Compendium, Do Not Delete/merge, [id number] 5 11:35:18 biopsy, endometria l 2023 024 [email or web address] [facility] (Centralized Electronic Ordering - All Locations), Patient Can Go To The Location Of Their Choice, [id number] 4 07:27:04 Referral None recorded. Procedures biopsy, endometriu m (PROC) 2024 025 [email or web address] In-Office Order, Internal Use Only DO Not Attach Compendium DO Not Attach Compendium, Do Not Delete/merge, [id number] 11:58:02 biopsy, endometriu m (PROC) 2023 024 mary jo In-Office Order, Internal Use Only DO Not Attach Compendium DO Not Attach Compendium, Do Not Delete/merge, [id number] 4 14:41:43 Surgeries None recorded. Imaging US, pelvis, transabdom inal + transvagin al - postmenopa usal bleeding 2024 025 caroline [facility] ([facility]), [address] [place], [address], 5 07:17:30 MAMMO, screening, digital, bilateral - Breast Aspiration and/or Biopsy if needed [facility] , [address] [place], [address], 5 13:05:33 US, pelvis, transabdom inal + transvagin al - PMB, please compare to prior sonogram from 11/11 to see if endometriu m has thickened, the in office endometria l biopsy was benign 2023 024 caroline [facility], [address], [place], [address], 07:27:02 Medication Orders None recorded. Patient TargetsNo targets recorded. Patient Instructions Encounter Date Encounter Id Patient Instructions Last Modified By Organization Details Last Modified Time 12/07/2023 [id number] postmenopausal bleeding information Not available 12/07/2023 14:38:51 endometrial biopsy: about this test Not available 12/07/2023 14:38:51 She is here for EMB for pmb and a thickening of 4 mm on sonogram. She tolerated emb well, await results. Not available 12/07/2023 14:39:02 04/24/2024 [id number] vaginal bleeding after menopause: care instructions Not available 04/24/2024 10:47:28 She is here [...] care 25 minutes Not available 04/24/2024 10:51:01 12/03/2024 [id number] learning about healthy weight Not available 12/03/2024 11:35:18 She is here for annual exam, is happy on her HRT. Her last annual was 04/2023. She also reports continued PMB. It had stopped for a short while but then restarted a few weeks ago. She has a past histroy of endometrial hyperplasia, simple, without atypia. She had been seen in 05/11 for this, sono showed a likely 3 mm polyp and she was advised to have a D and C as the prior emb in 12/09 was negative, however her mother was ill and then in 08/11, and so she has not virgie able to address this until now. She is taking HRT, estradiol 1 mg and also provera 5 mg a day. EMB in 12/09 was atrophic. Sonogram 05/11 suggested a 3 mm polyp in the uterus. Prior sampling; EMB in 04/03 had simple endometrial hyperplasia without atypia. She had a D and C in 01/11/2018 at [facility], a hyperplastic endometrial polyp was removed __ Note from 05/14/24: She is here for another episode of [...] let's see what the sonogram shows, first. As she has undiagnosed PMB she is advised to stop the HRT now. The prior sonogram is more than 6 months old so she will need a new sono, she will return for consult about PMB and we can set that up. She is advised she will likely need a new emb as the old one is a year ago, however the surgeon may fore go that if they are planning a D and C if she wants we can not do that and let the physical optics teacher surgeon decide. She will consider all this and then return for consult. She appears to be doing well. Monthly self breast exam was taught, and stressed, and is advised to call if she discovers any new mass in the breast. Not available 12/03/2024 12:11:42 12/20/2024 [id number] vaginal bleeding after menopause: care instructions Not available 12/20/2024 09:35:56 She is here for pmb. She had been taking HRT, had not missed any pills, she stopped the HRT after her 12/03/24 annual when we discussed this. She has not had any pmb for this past week. Ultrasound 05/11 showed a 3 mm focus in the cavity possibly a polyp, she has a polyp removed at D and C in 2018. She was advised to follow up but she cancelled that appointment in 06/11 and has not returned until now. Note from 12/03/24: She also reports continued PMB. It had stopped for a short while but then restarted a few weeks ago. She has a past histroy of endometrial hyperplasia, simple, without atypia. She had been seen in 05/11 for this, sono showed a likely 3 mm polyp and she was advised to have a D and C as the prior emb in 12/09 was negative, however her mother was ill and then in 08/11, and so she has not virgie able to address this until now. She is taking HRT, estradiol 1 mg and also provera 5 mg a day. EMB in 12/09 was atrophic. Sonogram 05/11 suggested a 3 mm polyp in the uterus. ____ Discussed that we need to repeat the sono as it has bene 8 months since the last test, she understands and agrees. AFter this she will likely need either an emb or a D and C, depending on the sono results. All questions answered. She understands and agrees. Face to face discussion, chart review and coordination of care: 25 minutes [email or web address] Not available 12/20/2024 10:15:05 12/31/2024 [id number] postmenopausal bleeding information [email or web address] Not available 12/31/2024 09:19:38 endometrial biopsy: about this test Not available 12/31/2024 09:19:38 She is here for emb for pmb, she may have a 3 mm polyp in the endometrial cavity by sonogram. Note from 12/20/24: She is here for pmb. She had been taking HRT, had not missed any pills, she stopped the HRT after her 12/03/24 annual when we discussed this. She has not had any pmb for this past week. Ultrasound 05/11 showed a 3 mm focus in the cavity possibly a polyp, she has a polyp removed at D and C in 2018. She was advised to follow up but she cancelled that appointment in 06/11 and has not returned until now. ___ She tolerated emb well, a polyp may have been removed await path. Post procedure care discussed. Not available 12/31/2024 09:21:40 Reason for Referral None Reported. Results Created Date Observation Date Name Description Value Unit Range Abnormal Flag Note LastModifiedBy Organization Detail LastModifiedTime 12/07/19 24 12/07/2023 [facility] results Patibridger nt Name: MANUEL JENNINGS Acces santa #: [id number] Patibridger nt : [phone] (Age: 53) Colle ction Date: 2023 Acces santa Date: 2023 Sign Out Date: 2023 Tissu e Sourc e: 1:EMB Final Diagn osis: Endom etriu m, biops y: - Mucus and scant strip s of surfa ce endom etriu m that may in appro priat e clini tawana setti ng repre sent atrop hy. Prima ry Patho logis t:Maria Del Rosario tim M.D. elect mk [facility] d out by: Deloris tim M.D. / OKOlu Clini tawana Histo ry: Postm enopa usal bleed ing [...] and stain ing is perfo rmed at [facility] , [address], [place] [address] (CLIA #[id number]). Its perfo rmanc e drea cteri stics are deter mined by [facility]. Phone #: [phone], On-Ca ll Patho logis t: [id number] Not Available [facility] (Centralized Electronic Ordering - All Locations) Patient Can Go To The Location Of Their Choice, [id number] 12/11/2023 18:21:17 12/04/19 25 12/06/2024 IGP, RFX APTIM A HPV ASCU diagnosis: Commen t NEGAT REGINALD FOR INTRA EPITH ELIAL LESIO N OR GENA RICHTER . Not Available [facility] ([facility]) [address] [place], [address], 12/06/2024 16:07:39 12/04/19 25 12/06/2024 IGP, RFX APTIM A HPV ASCU specimen adequacy: Saul t Satis facto ry for evalu ation . Endoc ervic al and/o r squam ous metap lasti c cells (endo cervi tawana compo nent) are prese nt. Not Available [facility] ([facility]) [address] [place], [address], 12/06/2024 16:07:39 12/04/19 25 12/06/2024 IGP, RFX APTIM A HPV ASCU clinician provided ICD10: Saul panda Z01.4 19 Not Available [facility] ([facility]) [address] [place], [address], 12/06/2024 16:07:39 12/04/19 25 12/06/2024 IGP, RFX APTIM A HPV ASCU performed by: Yarelis Ring (ASCP ) Not Available [facility] ([facility]) [address] [place], [address], 12/06/2024 16:07:39 12/04/19 25 12/06/2024 IGP, RFX APTIM A HPV ASCU . . Not Available [facility] ([facility]) [address] [place], [address], 12/06/2024 16:07:39 12/04/19 25 12/06/2024 IGP, RFX APTIM A HPV ASCU note: Saul t The Pap smear is a scree jacob test desfreddie escalera to aid in the detec tion of tato ligna nt and malig nant condi tions of the uteri ne cervi x. It is not a diagn ostic proce dure and shoul d not be used as the sole means of detec ting cervi tawana cance r. Both false -posi tive and false -nega tive repor ts do occur . Not Available [facility] ([facility]) [address] [facility], [place], [address], 12/06/2024 16:07:39 12/04/19 25 12/06/2024 IGP, RFX APTIM A HPV ASCU test methodology: Commen t This liqui d based ThinP rep(R ) pap test was scree lali with the use of an image guide elliot le m. Not Available [facility] ([facility]) [address] [place], [address], 12/06/2024 16:07:39 12/04/19 25 12/06/2024 IGP, RFX APTIM A HPV ASCU . Commen t The HPV DNA refle x crite ml were not met with this speci men resul t there fore, no HPV testi ng was perfo rmed. Not Available [facility] ([facility]) [address] [facility], [place], [address], 12/06/2024 16:07:39 12/04/19 25 12/03/2024 hemog lobin , gastr ointe nuzhat l, stool Occult Blood negati ve Not Available In-Office Order Internal Use Only DO Not Attach Compendium DO Not Attach Compendium, Do Not Delete/merge, [id number] 12/03/2024 11:07:18 01/01/20 25 12/31/2024 [facility] results Osbaldo steward Name: MANUEL JENNINGS Lab Acces santa #: [id number] Osbaldo nt : 968 (Age: 54) Colle ction Date: 2024 Acces santa Date: 2024 Sign Out Date: 2024 Tissu e Sourc e: 1:EMB Final Diagn osis: Endom etriu m, biops y: - Endom etria l atrop hy. - Histo logic ally unrem arkab le scant endoc ervic al gland ular mucos a and mucus prese nt. Prima ry Patho logis t:Diaz boswell M.D. elect [facility] d out by: Angélica boswell M.D. / BETI Clini tawana Histo ry: Postm enopa usal bleed ing Gross Descr iptio n: Label ed endo metri al biops y . Recei sunil in forma tomasa is a 1.5 x 1.0 x 0.3 [address] gate of blood -ting ed cloud y mucus . The forma tomasa is filte red and the speci men is submi tted in toto in 1 casse tte, multi ple piece s, x 2. (KD)* As of November 25, 2023, the speci men proce ssing and stain ing is [facility]fo [facility]med at [facility] , [address], [facility] [place] (CLIA #[id number]). Its perfo rmanc e drea cteri stics deter mined by [facility] Quang Aguirre M.D. Medic al Direc tor of Surgi tawana Patho Maddie leger M.D. Medic al Direc tor Cytop athol ogy Phone #: [phone], On-Ca ll Patho logis t: [id number] Not Available [facility] (Centralized Electronic Ordering - All Locations) Patient Can Go To The Location Of Their Choice, [id number] 01/03/2025 10:37:48 11/17/19 24 11/07/2023 US, pelvi s, trans abdom inal + trans vagin al No observ ation record ed. caroline [facility] [address] [facility] [address] [facility] [address], [place], [address], 11/21/2023 10:57:29 04/30/20 24 04/30/2024 US, pelvi s, trans abdom inal + trans vagin al No observ ation record ed. caroline [facility] [address] [facility] [address], [place], [address], 06/04/2024 13:45:39 12/24/19 25 12/23/2024 US, pelvi s, trans abdom inal + trans vagin al No observ ation record ed. [facility] [address] , [place], [address], 12/23/2024 15:04:01 Result Notes None recorded. 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 Not Available [facility] 2 08:23:51 Abscess of vulva 14068477 Completed 12/28/2017 Removal Reason: resolved Lety Burger MD [address] [facility], [place], [address] , [place] - [facility], 8 16:04:16 Infectio n of external ear 130549167 Completed 12/28/2017 Removal Reason: resolved Lety Burger MD [address] [facility], [place], [address] , [place] - [facility], 8 16:04:09 Lesion of vulva 853873467 Active Not Available [facility] 2 08:23:51 Candidal vulvovag initis 40817706 Active Not Available [facility] 2 08:23:51 Vertigo of central origin 51511457 Active Not Available [facility] 2 08:23:51 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 Not Available [facility] 2 08:23:51 Amenorrh ea 55419363 Active Not Available [facility] 2 08:23:51 Dysmenor cavlin 553092968 Active Not Available [facility] 2 08:23:51 Hematoch ezia 585741418 Active Not Available [facility] 2 08:23:51 Postmeno pausal bleeding 67714458 Active Not Available [facility] 2 08:23:51 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 Procedures Surgical History Date Name Laterality Status Provider Name and Address Organization Details Recorded Time 5 Endometrial Biopsy completed Lety Burger MD [address], [place], [address], [place] - [facility], 12/31/2024 09:21:06 5 Most Recent Mammogram completed Vickie Arreaga [place] - [facility], 12/03/2024 11:08:04 4 Endometrial Biopsy completed Lety Burger MD [address], [place], [address], [place] - [facility], 12/07/2023 14:39:26 8 Vulvar Biopsy completed Lety Burger MD [address], [place], [address], [place] [facility], 05/03/2018 10:38:33 8 Dilation and Curettage completed Carole Lei [place] - [facility], 01/19/2018 08:23:46 8 Endometrial Biopsy completed Lety Burger MD [address], [place], [address], [place] [facility], 09/29/2017 08:47:06 7 Endometrial Biopsy completed Lety Burger MD [address], [place], [address], [place] [facility], 04/17/2017 15:33:15 5 Endometrial Biopsy completed Lety Burger MD [address], [place], [address], [place] - [facility], 09/03/2015 16:11:49 5 Vulvar Biopsy completed Lety Burger MD [address], [place], [address], [place] [facility], 02/04/2015 09:31:52 6 Other completed Vickie Arreaga [place] - [facility], 10/21/2013 08:11:03 4 Tubal Ligation completed Vickie Arreaga [place] - [facility], 10/21/2013 08:11:03 5 Caesarean Section completed Carole Lei [place] - [facility], 08/28/2012 14:20:56 Imaging Results None recorded. Procedure Notes None recorded. Medical Equipment None Reported. Allergies Allergen ID Allergen Name Allergen Category Reaction Reaction Severity Criticality Documentation Date Start Date Code Code System Note Provider Name and Address Organization Details Recorded Time 5701 Substance with sulfonami de structure and antibacte rial mechanism of action (substanc e) medicatio n hives Not available Not available 08/28/2012 39351 8003 SNOMED Carole Lei natan [place] - [facility], 2 14:18:17 Medications Name Sig Start Date [...] TWICE A DAY WITH FOOD AND WATER. CAN CAUSE STOMACH UPSET. CONSIDER PROBIOTIC 12/03 completed Not Available Not Available Not Available azithromyci n 250 mg tablet TAKE [...] 1 TABLET BY MOUTH TWICE A DAY 12/03 completed Not Available Not Available Not Available valacyclovi r 1 gram tablet TAKE [...] TAKE 1 TABLET BY MOUTH EVERY DAY 12/20 completed Not Available Not Available Not Available prednisone 5 mg tablet TAKE 3 TABLETS [...] completed Not Available Not Available Not Available famotidine 20 mg tablet TAKE 1 TABLET BY MOUTH TWICE A DAY active Not Available Not Available No t Available lorazepam 0.5 mg tablet TAKE 1 TABLET BY MOUTH PRIOR TO PROCEDURE 12/03 completed Not Available Not Available Not Available estradiol 1 mg tablet TAKE 1 TABLET BY MOUTH EVERY DAY active Not Available Not Available No t Available methotrexat e sodium 2.5 mg tablet TAKE 7 TABLETS BY MOUTH EVERY WEEK active Not Available Not Available No t [...] CAPSULE BY MOUTH 3 TIMES A DAY IF NEEDED FOR COUGH. DO NOT CRUSH OR CHEW. 12/03 completed Not Available Not Available Not Available [...] completed Not Available Not Available Not Available sertraline 25 mg tablet TAKE 1 TABLET BY MOUTH 1 TIME EACH DAY. active Not Available Not Available No t Available folic acid 1 mg tablet TAKE [...] completed Not Available Not Available Not Available albuterol sulfate HFA 90 mcg/actuati on aerosol inhaler INHALE 2 PUFFS BY MOUTH EVERY 4 (FOUR) HOURS IF NEEDED FOR WHEEZING OR SHORTNESS OF BREATH. 12/03 completed Not Available Not Available Not Available [...] Not Available Not Available No t Available sertraline 50 mg tablet TAKE 1 TABLET BY MOUTH 1 TIME EACH DAY. active Not Available Not Available No t [...] Available Not Available clindamycin 1 % lotion PLEASE SEE ATTACHED FOR DETAILED DIRECTION S 12/03 completed Not Available Not Available Not Available erythromyci n with ethanol 2 % topical gel PLEASE SEE ATTACHED FOR DETAILED DIRECTION S active Not Available Not Available No t Available azelaic acid 15 % topical gel PLEASE SEE ATTACHED FOR DETAILED DIRECTION S 12/03 completed Not Available Not Available Not Available Enbrel 50 mg/mL (1 mL) subcutaneou [...] Not Available Not Available Not Available Orencia 12/03 completed Not Available Not Available Not Available diclofenac 1 % topical gel [...] completed Not Available Not Available Not Available Cimzia Starter Kit 400 mg/2 mL (200 mg/mL x2) subcutaneou s syringe kit active Not Available Not Available Not Available Antacid-Ant [...] ClickJect 125 mg/mL subcutaneou s auto-inject or 12/03 completed Not Available Not Available Not Available Humira(CF) Pen 40 mg/0.4 mL subcutaneou s kit 05/17 completed Not Available Not Available Not Available Rinvoq 15 mg tablet,exte nded release 12/03 completed Not Available Not Available Not Available Vitals Date Recorded Body height Body mass index (BMI) Body weight Heart rate Systolic blood pressure Diastolic blood pressure Provider Name and Address Organization Details Last Updated DateTime 5 170.18 cm 32 kg/m2 71890.5 6 g 84 /min 140 mm[Hg] 74 mm[Hg] Vickie Marie in [facility], 5 11:02:06 Date Recorded Body height Body mass index (BMI) Body weight Body temperature Heart rate Systolic blood pressure Diastolic blood pressure Provider Name and Address Organization Details Last Updated DateTime 4 170.18 cm 31.7 kg/m2 22899.1 g 97.2 [degF] 86 /min 158 mm[Hg] 83 mm[Hg] alexander Marie in [facility], 4 14:21:13 Date Recorded Body height Body mass index (BMI) Body weight Heart rate Systolic blood pressure Diastolic blood pressure Provider Name and Address Organization Details Last Updated DateTime 5 170.18 cm 32 kg/m2 18606.8 4 g 87 /min 141 mm[Hg] 78 mm[Hg] Vickie Marie in [facility], 5 09:19:24 Date Recorded Body height Body mass index (BMI) Body weight Body temperature Heart rate Systolic blood pressure Diastolic blood pressure Provider Name and Address Organization Details Last Updated DateTime 5 170.18 cm 31.7 kg/m2 49941.3 8 g 98.1 [degF] 80 /min 128 mm[Hg] 63 mm[Hg] Vickie Marie in [facility], 5 09:04:03 Date Recorded Body height Body mass index (BMI) Body weight Heart rate Systolic blood pressure Diastolic blood pressure Provider Name and Address Organization Details Last Updated DateTime 4 170.18 cm 31.4 kg/m2 25652.3 5 g 98 /min 127 mm[Hg] 84 mm[Hg] Vickie Marie in [facility], 4 10:30:32 Social History Question Answer Notes LastModified by Organizat ion Details LastModified Time Tobacco Smoking Status Never Smoker Not Available [facility] 07/21/2020 03:19:38 How Many Years Have You Consumed Alcohol? 0 [id number] Information not available 07/21/2020 What Is Your Level Of Caffeine Consumption? Occasional [id number] Information not available 07/21/2020 In The 14 [...] For COVID-19? No Information not available 04/19/2021 Diabetes No Information no t available 03/04/2016 What Type Of Diet Are You Following? REGULAR [id number] Information not available 07/21/2020 Which Illicit Or Recreational Drugs Have You Used? None [id number] Information not available 07/21/2020 Do You Reside In Or Have You Traveled To An Area Where Ebola Virus Transmission Is Active? No [id number] Information not available 07/21/2020 Education 12 Information no t available 08/28/2012 What Is The Highest Grade Or Level Of School You Have Completed Or The Highest Degree You Have Received? 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 0 Information no t available 06/07/2016 Are There Any Guns Present In Your Home? No Information not available 04/19/2021 High Number Of Sexual Partners No Information not available 03/04/2016 Live Alone Or With Others? With Others Information not available 03/04/2016 To Which Gender Do You Self-identify? Female Information not available 03/04/2016 Marital Status [employer] not available 08/28/2012 What Was The Date Of Your Most Recent Tobacco Screening? 12/31/2024 Information not available 12/31/2024 How Many Children Do You Have? 2 [id number] Information not available 07/21/2020 What Is Your Relationship Status? Information not available 04/19/2021 Seat Belts Used Routinely Yes Information not available 03/04/2016 Are You Sexually Active? Yes [id number] Information not available 07/21/2020 How Much Tobacco Do You Smoke? No [id number] Information not available 07/21/2020 General Stress Level Medium Information not available 10/31/2014 How Many Years Have You Smoked Tobacco? 0 [id number] Information not available 07/21/2020 Have You Recently (within The Last 12 Weeks, Or During A Current ) Traveled To Or Lived In A Zika-affected Area? No Information not available 03/04/2016 Sex: Female Functional Status Question Answer Note LastModified by Organizat ion Details LastModified Time Do you use any illicit or recreational drugs? No Information not available 04/19/2021 Do you or have you ever used any other forms of tobacco or nicotine? No Information not available 04/19/2021 What is your level of alcohol consumption? None [id number] Information not available 07/21/2020 Are you currently employed? Yes Information not available 04/19/2021 What is your occupation? [employer] [id number] Information not available 07/21/2020 What is your exercise level? Occasional Information not available 04/19/2021 Mental Status Question Answer Note LastModified by Organization D etails LastModified Time Do you feel stressed (tense, restless, nervous, or anxious, or unable to sleep at night)? [id number] Information not available 04/19/2021 Family History Relationship Description Onset Age of this Age Resolved Age Notes LastModified by Organization Details LastModified Time Sister Multiple sclerosis 35 Not available 08/18 16:09:48 Sister Calculus of pancreas 51 cancer [email or web address] Not available 2022 08:26:24 Mother Problem none Not availab le 09/03/2015 16:09:48 Medical History Condition Response Anesthesia complications N High Blood Pressure N Candidate for MyRisk panel N Autoimmune Condition N Kidney or Bladder Problems N Thyroid Problems N Depression N Lung Disease N GI Problems N Defects or Inherited Disease N Anemia N History of Ovarian Cancer N History of Breast Cancer N LAURI exposure N BRCA testing in past N Osteopenia N Psychiatric Illness N Anxiety Disorder N Diabetes N Arthritis Y Headaches or Migraines N Infertility N Asthma N History of Cancer N Endometriosis N Hepatitis N Heart Disease N Hypertension N Osteoporosis N Gynecological History Statement/Question Response Dysmenorrhea N If Post Menopausal, Age at Menopause 43 Flow Light Most Recent Bone Density Date of LMP 10/19/2013 Menses Monthly N Most Recent Mammogram 10/01/2024 Current Control Method Tubal Ligat ion Age [...] Vickie Meczywor null, [place] - [facility], 05/17/2023 08:19:53 Pneumococcal conjugate PCV20, polysaccharide LMO921 conjugate, adjuvant, PF 2 completed Vickie Meczywor null, [place] - [facility], 05/17/2023 08:19:53 Influenza, MDCK, quadrivalent, [...] Vickie Meczywor null, [place] - [facility], 05/17/2023 08:19:53 pneumococcal polysaccharide PPV23 [...] Vickie Meczywor null, [place] - [facility], 05/17/2023 08:19:53 Influenza, split virus, trivalent, preservative 8 completed Vickie Meczywor null, [place] - [facility], 05/17/2023 08:19:53 Influenza, split virus, trivalent, preservative 2 completed Vickie Meczywor null, [place] - [facility], 05/17/2023 08:19:53 Influenza, split virus, trivalent, preservative 5 completed Vickie Meczywor null, [place] - [facility], 05/17/2023 08:19:54 Influenza, split virus, trivalent, preservative 4 completed Vickie Meczywor null, [place] - [facility], 05/17/2023 08:19:54 Influenza, split virus, trivalent, preservative 5 completed Vickie Meczywor null, [place] - [facility], 05/17/2023 08:19:54 Influenza, split virus, trivalent, preservative 4 completed Vickie Meczywor null, [place] - [facility], 05/17/2023 08:19:54 Influenza, split virus, trivalent, preservative 5 completed Vickie Meczywor null, [place] - [facility], 05/17/2023 08:19:54 Influenza, split virus, trivalent, preservative 3 completed Vickie Meczywor null, [place] - [facility], 05/17/2023 08:19:54 Influenza, split virus, trivalent, preservative 2 completed Vickie Meczywor null, [place] - [facility], 05/17/2023 08:19:54 Influenza, split virus, trivalent, preservative 6 completed Vickie Meczywor null, [place] - [facility], 05/17/2023 08:19:54 Influenza, split virus, quadrivalent, PF 1 completed Vickie Meczywor null, [place] - [facility], 05/17/2023 08:19:54 Influenza, split virus, quadrivalent, PF 0 completed Vickie Meczywor null, [place] - [facility], 05/17/2023 08:19:54 Past Encounters Encounter ID Performer Location Encounter Start Date Encounter Closed Date Diagnosis/Indication Diagnosis SNOMED-CT Code Diagnosis ICD10 Code Diagnosis Note [id number] MD LETY Lopez MD [address] [facility] [address] 08/28/2012 13:57:20 08/29/2012 12:25:20 [id number] MD LETY Lopez MD [address] [place] [address] 09/25/2012 14:55:14 09/25/2012 15:12:49 [id number] MD LETY Lopez MD [address] [place] [address] 10/18/2012 13:52:30 10/19/2012 16:10:30 [id number] MD LETY Lopez MD [address] [place] [address] 10/21/2013 08:01:20 10/21/2013 10:47:58 Specialized medical examination [id number] Screening for malignant neoplasm of rectum 821186847 Screening mammography [id number] MD LETY Lopez MD [facility],[place] [address] 11/22/2012 13:19:47 11/22/2012 15:02:29 [id number] MD LETY Lopez MD [address] [place] [address],[place] [address] 10/31/2014 07:49:14 10/31/2014 09:36:43 Specialized medical examination [id number] Screening for malignant neoplasm of rectum 592251899 Screening mammography 60566522 Menopausal syndrome [id number] MD LETY Lopez MD [address] [place] [address],[place] [address] 12/30/2014 15:23:37 12/30/2014 16:07:25 Menopausal syndrome [id number] MD LETY Lopez MD [address] [place] [address],[place] [address] 01/12/2015 14:11:39 01/12/2015 15:39:40 Abscess of vulva 93184205 Infection of external ear 400678953 [id number] MD LETY Lopez MD [address] [place] [address],[place] [address] 02/04/2015 08:23:05 02/04/2015 10:02:37 Lesion of vulva 404136470 [id number] MD LETY Lopez MD [address] [place] [address],[place] [address] 09/03/2015 15:42:38 09/03/2015 16:15:37 Postmenopausal bleeding 73329207 N95.0 [id number] MD LETY Lopez MD [address] [place] [address],[place] [address] 03/04/2016 09:38:37 03/04/2016 10:41:57 Specialized medical examination 52022344 Z01.419 Screening for malignant neoplasm of rectum 954653200 Z12.12 Screening mammography 24 897911 Z12.31 Menopausal syndrome 1237 13278 N95.9 [id number] MD LETY Lopez MD [address] [place] [address], [address] [facility] [address] 06/07/2016 07:54:54 06/07/2016 10:26:24 Atypical squamous cells of undetermined significance on cervical Papanicolaou smear 522274151 R87.610 [id number] MD LETY Lopez MD [address] [place] [address],[facility] [place] [address] 12/09/2016 12:58:38 12/09/2016 14:43:10 Candidal vulvovaginitis 30260578 B37.3 Candidiasis of skin 4988 3006 B37.2 [id number] MD LETY Lopez MD [address] [place] [address],[facility] [place] [address] 03/07/2017 14:50:48 03/07/2017 16:05:38 Specialized medical examination 48563331 Z01.419 Screening for malignant neoplasm of rectum 991306398 Z12.12 Screening mammography 24 276297 Z12.31 Menopausal syndrome 1237 13799 N95.1 [id number] MD LETY Lopez MD [address] [place] [address],[facility] [place] [address] 04/17/2017 15:12:27 04/17/2017 15:46:39 Postmenopausal bleeding 46888288 N95.0 [id number] MD LETY Lopez MD [address] [place] [address], [address] [facility] [address] 04/20/2017 15:18:59 04/20/2017 15:59:17 Simple endometrial hyperplasia 623129130 N85.01 [id number] MD LETY Lopez MD [address] [place] [address], [address] [facility] [address] 09/29/2017 08:14:24 09/29/2017 10:41:14 Simple endometrial hyperplasia 295750395 N85.01 [id number] MD LETY Lopez MD [address] [place] [address],[facility] [place] [address] 10/23/2017 14:55:32 10/24/2017 08:49:17 Polyp of corpus uteri 77996864 N84.0 Benign end ometrial hyperplasia 1483855819 95507 N85.01 Menopausal syndrome 1237 38732 N95.1 [id number] MD LETY Lopez MD [address] [place] [address] [place] [address] 11/30/2017 08:16:33 11/30/2017 11:52:37 Polyp of corpus uteri 36804985 N84.0 Postmenopa usal bleeding 99155754 N95.0 [id number] MD LETY Lopez MD [address] [place] [address],[facility] [place] [address] 12/28/2017 15:30:28 12/28/2017 16:19:33 Postmenopausal bleeding 49847960 N95.0 Polyp of corpus uteri 11 293195 N84.0 [id number] MD LETY Lopez MD [address] [place] [address],[facility] [place] [address] 01/19/2018 08:14:43 01/19/2018 11:31:30 Benign endometrial hyperplasia 2905499020 97313 N85.01 Polyp of corpus uteri 11 587357 N84.0 [id number] MD LETY Lopez MD [address] [place] [address],[facility] [place] [address] 05/03/2018 10:02:13 05/03/2018 11:55:08 Mass of vulva 349189888 N90.89 [id number] MD LETY Lopez MD [address] [place] [address],[facility] [place] [address] 12/11/2018 15:09:18 12/11/2018 16:00:16 Specialized medical examination 99252206 Z01.419 Screening for malignant neoplasm of rectum 239658768 Z12.12 Screening mammography 24 294569 Z12.31 Menopausal syndrome 1237 20512 N95.1 [id number] MD LETY Lopez MD [address] [place] [address] [place] [address] 01/08/2020 09:50:40 01/08/2020 11:03:58 Menopausal syndrome 740492403 N95.1 Exposure t o SARS-CoV-2 362629663 Z20.828 [id number] MD LETY Lopez MD [address] [place] [address],[facility] [place] [address] 04/19/2021 09:57:47 04/19/2021 10:56:03 Specialized medical examination 35228826 Z01.419 Screening for malignant neoplasm of rectum 660788951 Z12.12 Screening mammography 24 526440 Z12.31 Menopausal syndrome 1237 77892 N95.1 Mass of ovary 415579629 R19.09 [id number] MD LETY Lopez MD [address] [place], [place] [address] [address] 04/25/2022 14:00:27 04/25/2022 14:52:14 Specialized medical examination 13005697 Z01.419 Screening for malignant neoplasm of rectum 726570436 Z12.12 Screening mammography 24 713600 Z12.31 Menopausal syndrome 1237 08664 N95.1 [id number] MD LETY Lopez MD [address] [place], [place] [address] [address] 05/11/2022 10:37:16 05/12/2022 08:34:12 Menopausal syndrome 727630355 N95.1 [id number] MD LETY Lopez MD [address] [place] [address] [place] [address] 05/17/2023 08:16:45 05/17/2023 09:48:02 Specialized medical examination 12097406 Z01.419 Screening for malignant neoplasm of rectum 302039754 Z12.12 Screening mammography 24 526292 Z12.31 Menopausal syndrome 1237 86760 N95.1 [id number] MD LETY Lopez MD [address] [place] [address],[place] [address] 10/19/2023 13:19:50 10/20/2023 14:07:00 Postmenopausal bleeding 38939550 N95.0 Menopausal syndrome 1237 93280 N95.1 [id number] MD LETY Lopez MD [address] [place] [address],[place] [address] 12/07/2023 14:18:23 12/07/2023 14:41:57 Postmenopausal bleeding 81109376 N95.0 [id number] MD LETY Lopez MD [address] [place] [address],[place]CHAL[address] 5 04/24/2024 10:20:46 04/24/2024 11:29:29 Postmenopausal bleeding 04541848 N95.0 [id number] MD LETY Lopez MD [address] [place] [address], [place] [address] 12/03/2024 10:54:28 12/03/2024 13:05:33 Menopausal syndrome 660013192 N95.1 Specialize d medical examination 56932866 Z01.419 Screening for malignant neoplasm of rectum 192708086 Z12.12 Screening mammography 24 907454 Z12.31 [id number] MD LETY Lopez MD [address] [place] [address],[place] [address] 12/20/2024 09:15:44 12/20/2024 10:27:24 Postmenopausal bleeding 39472401 N95.0 Endometrial polyp 193340 5869 N84.0 [id number] MD LETY Lopez MD [address] [place] [address],[place] [address] 12/31/2024 08:59:10 12/31/2024 11:58:15 Postmenopausal bleeding 79824009 N95.0 Health Concerns Section Related Observation LastModified by Organization Detai ls LastModified Time None Recorded Concern Status LastModified by Organization Details LastModified Time None Recorded Advance Directives Directive None Recorded Payers Insurance Date Sequence Insurance Name Policy Number Policy Dean Covered Member ID Dean Member ID Guarantor Name 12/28/2024 1 [facility] [place] [place] [id number] Celestino Jennings Jr [id number] Alison Dick Notes Date Note Type Note Provider Name and Address Organization Details Recorded Time 12/07/2023 text/html She is here for EMB for pmb and a thickening of 4 mm on sonogram. Lety Burger MD [address], [place], [address], [facility] - [facility], 12/07/2023 14:39:46 04/24/2024 text/html She is here [...] benign and atrophic. Lety Burger MD [address], [place], [address], [place] - [facility], 04/24/2024 11:24:18 12/03/2024 text/html She is here for annual exam, is happy on her HRT. Her last annual was 04/2023. She also reports continued PMB. It had stopped for a short while but then restarted a few weeks ago. She had been seen in 05/11 for this, sono showed a likely 3 mm polyp and she was advised to have a D and C as the prior emb in 12/09 was negative, however her mother was ill and then in 08/11, and so she has not virgie able to address this until now. She is taking HRT, estradiol 1 mg and also provera 5 mg a day. EMB in 12/09 was atrophic. Sonogram 05/11 suggested a 3 mm polyp in the uterus. Prior sampling;EMB in 04/03 had simple endometrial hyperplasia without atypia.She had a D and C in 01/11/2018 at [facility], a hyperplastic endometrial polyp was removed Note from 05/14/24: She is here for another episode of PMB. She has been taking HRT since 2014, she had the onset of menopause in 2014 at the age of 44. she has missed no pills.The bleeding began 2 1/2 weeks ago, and just finished 2 days ago. Some days light, but some were a moderately heavy flow.Sonogram in 11/11 showed a 4 mm heterogeneous endometrium, emb done was benign and atrophic.She may have an endometrial polyp. She notes that she had a D and C in 2018 and an endometrial polyp was removed.Will repeat the sonogram to see if the endometrium has thickened in the past 6 months. We discussed that likely she will need and D and C again, but let's see what the sonogram shows, first. Lety Burger MD [address], [place], [address], [email or web address] - [facility], 12/03/2024 12:23:03 12/20/2024 text/html She is here for pmb. She had been taking HRT, had not missed any pills, she stopped the HRT after her 12/03/24 annual when we discussed this. She has not had any pmb for this past week. Note from 12/03/24: She also reports continued PMB. It had stopped for a short while but then restarted a few weeks ago. She has a past histroy of endometrial hyperplasia, simple, without atypia.She had been seen in 05/11 for this, sono showed a likely 3 mm polyp and she was advised to have a D and C as the prior emb in 12/09 was negative, however her mother was ill and then in 08/11, and so she has not virgie able to address this until now.She is taking HRT, estradiol 1 mg and also provera 5 mg a day.EMB in 12/09 was atrophic. Sonogram 05/11 suggested a 3 mm polyp in the uterus. Lety Burger MD [address], [place], [address], [email or web address] - [facility], 12/20/2024 10:15:34 12/31/2024 text/html She is here for emb for pmb, she may have a 3 mm polyp in the endometrial cavity by sonogram. Note from 12/20/24: She is here for pmb. She had been taking HRT, had not missed any pills, she stopped the HRT after her 12/03/24 annual when we discussed this. She has not had any pmb for this past week.Ultrasound 05/11 showed a 3 mm focus in the cavity possibly a polyp, she has a polyp removed at D and C in 2018. She was advised to follow up but she cancelled that appointment in 06/11 and has not returned until now. Lety Burger MD [address], [place], [address], [place] [facility], 12/31/2024 09:27:14 OBGyn Episode No OBEpisode recorded.
[2025-03-06 17:26] LABS: MANUAL DIFF FLAG NO
[2025-03-06 17:53] LABS: Basophils Percent Auto 0.7 % (0-2); Eosinophils Absolute Auto 0.3 X10*3/uL (0.0-0.4); Eosinophils Percent Auto 6.7 % (0-4); Hematocrit 38.9 % (37.0-47.0); Hemoglobin 12.9 g/dl (12.0-16.0); Imm Gran Abs Auto 0.01 X10*3/uL (0.00-0.03); Imm Gran Pct Auto 0.2 % (0.0-0.4); Lymphocytes Absolute Auto 1.6 X10*3/uL (1.2-4.9); Lymphocytes Percent Auto 38.2 % (20-40); Mean Corpuscular HGB Conc 33.2 g/dl (31.0-35.0); Mean Corpuscular Volume 96.5 fL (80.0-98.0); Mean Platelet Volume 10.2 fL (9.4-12.3); Monocytes Absolute Auto 0.5 X10*3/uL (0.1-1.2); Monocytes Percent Auto 11.3 % (2-11); Neutrophils Absolute Auto 1.8 x10*3/uL (2.0-8.3); Neutrophils Percent Auto 42.9 % (45-73); Platelet Count 273 X10*3/uL (160-400); Red Blood Count 4.03 X10*6/uL (4.20-5.50); Red Cell Distribution Width 12.6 % (11.0-16.0); White Blood Count 4.2 X10*3/uL (4.8-10.8)
[2025-03-06 17:59] LABS: Alanine Aminotransferase 60 U/L (0-31); Albumin Level 4.8 g/dL (3.5-5.0); Alkaline Phosphatase 56 U/L (39-117); Aspartate Amino Transferase 42 U/L (5-31); Bilirubin Direct 0.2 mg/dL (0.0-0.5); Bilirubin Total 0.6 mg/dL (0.0-1.0); C Reactive Protein < 0.10 mg/dL (< or = 0.50); Estimated Glomerular Filt Rate > 60; Total Protein 7.6 g/dL (6.5-8.0)
[2025-03-06 18:29] LABS: Erythrocyte Sedimentation Rate 20 MM/HR (0-20)
== END 2025-03-06 08:13 | disposition home or self-care (01) ==
LOC: HO.HKASLDS 08:12
PROVIDERS: PCP Internal Medicine; Visit Provider Internal Medicine Rheumatology
DX: M05.761 Rheumatoid arthritis with rheumatoid factor of right knee without organ or systems involvement (principal); Z79.899 Other long term (current) drug therapy; Z79.60 Long term (current) use of unspecified immunomodulators and immunosuppressants; R74.01 Elevation of levels of liver transaminase levels; M05.762 Rheumatoid arthritis with rheumatoid factor of left knee without organ or systems involvement
CPT/HCPCS: 36415; 80076; 82565; 85025; 85652; 86140

== ENCOUNTER 2025-06-05 08:00 | Outpatient (REF) | payer BC, SELFPAY ==
[2025-06-05 13:32] LABS: MANUAL DIFF FLAG NO
[2025-06-05 13:40] LABS: Hematocrit 39.3 % (37.0-47.0); Hemoglobin 12.9 g/dl (12.0-16.0); Imm Gran Abs Auto 0.01 X10*3/uL (0.00-0.03); Imm Gran Pct Auto 0.2 % (0.0-0.4); Lymphocytes Absolute Auto 1.6 X10*3/uL (1.2-4.9); Mean Corpuscular HGB Conc 32.8 g/dl (31.0-35.0); Mean Corpuscular Hemoglobin 31.6 pg (27.0-33.0); Mean Corpuscular Volume 96.3 fL (80.0-98.0); NRBC Abs Auto 0.000 X10*3/uL (0.0-0.012); NRBC Pct Auto 0.0 /100WBC (0.0-0.2); Platelet Count 293 X10*3/uL (160-400); Red Blood Count 4.08 X10*6/uL (4.20-5.50); White Blood Count 4.0 X10*3/uL (4.8-10.8)
[2025-06-05 13:55] LABS: Alanine Aminotransferase 52 U/L (0-31); Aspartate Amino Transferase 34 U/L (5-31); Estimated Glomerular Filt Rate 56
== END 2025-06-05 08:01 | disposition home or self-care (01) ==
LOC: HO.HKASLDS 08:00
PROVIDERS: PCP Internal Medicine; Visit Provider Internal Medicine Rheumatology
DX: M05.761 Rheumatoid arthritis with rheumatoid factor of right knee without organ or systems involvement (principal); M05.762 Rheumatoid arthritis with rheumatoid factor of left knee without organ or systems involvement; R74.01 Elevation of levels of liver transaminase levels; Z79.899 Other long term (current) drug therapy; Z79.631 Long term (current) use of antimetabolite agent; Z51.81 Encounter for therapeutic drug level monitoring
CPT/HCPCS: 36415; 82565; 84450; 84460; 85025; 85652; 86140

== ENCOUNTER 2025-06-05 08:00 | Outpatient (AMB) | payer BC, SELFPAY ==
--- OUTSIDE RECORDS SUMMARY | 2025-06-02 10:15 | XMS_ITS | Encounter Summary ---
Author Organization [employer] Address [address] [place] [address] Care Team Providers Care Patient Access Manager Name Role Phone Lori Victoria MD Primary Care Prov ider Reason for Visit * Reason Comments Follow-up Encounter Details Date Type Department Care Team (Latest Contact Info) Description 06/02/2025 10:15 AM EDT Office Visit Adult Medicine - [place] [address] [place] [phone] Fidelina Damon PA [address] [place] [address] Hypercholesteremia (Primary Dx); Seronegative rheumatoid arthritis (CMS/HCC V24, CMS/HCC V28); Gastroesophageal reflux disease with esophagitis without hemorrhage; Hot flashes; Mild episode of recurrent major depressive disorder (CMS/HCC V24) Social History Tobacco Use Types Packs/Day Years Used Date Smoking Tobacco: Never Smokeless Tobacco: Never Alcohol Use Standard Drinks/Week Comments No 0 (1 standard drink = 0.6 oz pur e alcohol) Housing Instability Answer Date Recorde d Are you worried that in the next 2 months you may not have stable housing? No 03/22/2025 Food Access & Nutrition Answer Date Rec orded Do you have access to a vari ety of food including fruits and vegetables? Yes 03/22/2025 Access to Healthcare Answer Date Record ed Within the last 3 months, ramos fine many times did you visit the emergency department for your medical care? 0 03/22/2025 Health Literacy Answer Date Recorded How often do you need to hav e someone help you when you read instructions, pamphlets, or other written material from your doctor or pharmacy? Never 03/22/2025 Caregiver: How often do you need to have someone help you when you read instructions, pamphlets, or other written material from your doctor or pharmacy? Not on file 03/22/2025 Financial Risk Answer Date Recorded How hard is it for you to pa y for the very basics like food, housing, medical care, and air conditioning / heating? Not very hard 03/22/2025 Transportation Answer Date Recorded Has the lack of transportati on kept you from meetings, work, or from getting things needed for daily living? No Has the lack of transportati on kept you from medical appointments or from getting medications? No 03/22/2025 Social Isolation Answer Date Recorded How often do you feel lonely or isolated from th ose around you? Rarely 03/22/2025 Food Risk Answer Date Recorded Within the past 12 months we worried whether our food would run out before we got money to buy more. Never true 03/22/2025 Within the past 12 months th e food we bought just didn't last and we didn't have money to get more. Never true 03/22/2025 Dependent Care Answer Date Recorded Do you need help finding or paying for care for your loved ones. For example, manager primary care or elderly care for an older adult? No 03/22/2025 Education Answer Date Recorded Do you think completing more education or training, like finishing a GED, going to college, or learning a trade, would be helpful for you? No 03/22/2025 Employment and Income Answer Date Recor ded During the last four weeks, have you been actively looking for work? No 03/22/2025 Living Situation Answer Date Recorded What is your living situation? 0 03/22/2025 Comments No Sex and Gender Information Value Date Recorded Sex Assigned at Female 10/11/2024 8:15 AM EST Legal Sex Female 2:58 PM EST Gender Identity Female 10/11/2024 8:15 AM EST Sexual Orientation Not on file documented as of this encounter Last Filed Vital Signs Vital Sign Reading Time Taken Comments Blood Pressure 122/80 06/02/2025 10:07 AM EDT Pulse 60 06/02/2025 10:07 AM EDT Temperature - - Respiratory Rate 18 06/02/2025 10:07 AM EDT Oxygen Saturation - - Inhaled Oxygen Concentration - - Weight 90.3 kg (199 lb) 06/02/2025 10:07 AM EDT Height 172.7 cm (5' 8 ) 06/02/2025 10:07 AM EDT Body Mass Index 30.26 06/02/2025 10:07 AM EDT documented in this encounter Progress Notes * RAVI Ramirez - 06/02/2025 10:15 AM EDT CHIEF COMPLAINT: Follow-up IDENTIFIER: Alison Jennings is a 55 y.o. old female. HPI: History of Present Illness The patient presents for a medication review. History of hypertriglyceridemia, rheumatoid arthritis, heartburn, anxiety, depression, and hot flashes. History of hypertriglyceridemia. Currently on lopid 600mg BID. No adverse effects from current medications. Cholesterol levels rechecked 2 months ago: total cholesterol 203, LDL 134, triglycerides 152. This has improved and stable. Under teletype telegrapher care for rheumatoid arthritis, on methotrexate (5 tablets of 2.5 mg weekly) and Cimzia injections biweekly. Feeling well overall. Follow- up appointment for blood work. Liver function monitored by teletype telegrapher. History of heartburn, managed with Pepcid 20 mg BID. History of anxiety and depression. Previously on Zoloft 50 mg, increased to 75 mg due to persistenthot flashes after discontinuing hormone replacement therapy. Improvement in symptoms, occasional hot flashes, increased bloating and indigestion since dosage increase. Feels good on this dose. ROS: GENERAL: No malaise, significant weight loss or fever RESPIRATORY: No cough, wheezing or shortness of breath CARDIOVASCULAR: No chest pain, leg swelling or palpitations PSYCH: SEE HPI PAST MEDICAL HISTORY: Patient Active Problem List Diagnosis Date Noted Hot flashes 06/02/2025 Depression 11/14/2024 Hypercholesteremia 11/14/2024 Gastroesophageal reflux disease with esophagitis without hemorrhage 11/14/2024 Epigastric abdominal pain 01/03/2023 Umbilical hernia without obstruction and without gangrene 01/03/2023 History of COVID-19 07/07/2021 Ankle pain, left 09/07/2020 Cutaneous wart 11/23/2016 Stress incontinence 04/25/2009 Rosacea 01/22/2008 Seronegative rheumatoid arthritis ([facility] V24, [facility] V28) 08/17/2005 SOCIAL HISTORY: Social History Tobacco Use Smoking status: Never Smokeless tobacco: Never Substance Use Topics Alcohol use: No FAMILY HISTORY: Family Status Relation Name Status Sister (Not Specified) Neg Hx (Not Specified) No partnership data on file Family History Problem Relation Name Age of Onset Other (Other: pancreatic cancer) Sister Breast cancer Neg Hx ACTIVE MEDICATIONS: Outpatient Medications Marked as Taking for the 06/02/25 encounter (Office Visit) with RAVI Ramirez Medication Sig Dispense Refill albuterol HFA (ProAir HFA) 90 mcg/actuation inhaler Inhale 2 puffs by mouth every 4 (four) hours ifneeded for wheezing or shortness of breath. 8.5 g 0 famotidine (Pepcid) 20 mg tablet Take 1 tablet (20 mg total) by mouth 2 (two) times a day. 60 each 11 folic acid (FOLVITE) 1 mg tablet TAKE ONE TABLET DAILY WHILE ON METHOTREXATE gemfibroziL (LOPID) 600 mg tablet Take 1 tablet (600 mg total) by mouth 2 (two) times a day. 180 tablet 1 methotrexate (Xatmep) 2.5 mg/mL Take by mouth. ALLERGIES: Doxycycline, Sulfacetamide sodium, and Tofacitinib PHYSICAL EXAM: Blood pressure 122/80, pulse 60, resp. rate 18, height 1.727 m (68 ), weight 90.3 kg (199 lb). Bodymass index is 30.26 kg/m??. APPEARANCE: Alert and in no acute distress HEART: RRR with normal S1 and S2, no murmurs, appreciated LUNG: clear to auscultation EXTREMITIES: Extremities warm and well perfused without clubbing, cyanosis, or edema NEURO: Awake, alert and oriented x 3 PSYCH: Mood and affect intact LABS: Lab Results Component Value Date CHOL 203 (H) 03/28/2025 TRIG 152 (H) 03/28/2025 HDL 39 (L) 03/28/2025 LDLCALC 134 (H) 03/28/2025 VLDL 30.4 03/28/2025 NONHDLC 164 (H) 03/28/2025 CHOLHDL 5.2 (H) 03/28/2025 Lab Results Component Value Date NA 139 12/27/2024 K 4.1 12/27/2024 CL 105 12/27/2024 CO2 27 12/27/2024 GLUCOSE 101 (H) 12/27/2024 BUN 21 12/27/2024 CREATININE 0.95 12/27/2024 CALCIUM 9.7 12/27/2024 PROT 7.7 12/27/2024 ALBUMIN 4.2 12/27/2024 BILITOT 0.6 12/27/2024 AST 39 12/27/2024 ALT 60 12/27/2024 ALKPHOS 64 12/27/2024 EGFR 70 12/27/2024 IMPRESSION: 1. Hypercholesteremia 2. Seronegative rheumatoid arthritis ([facility] V24, [facility] V28) 3. Gastroesophageal reflux disease with esophagitis without hemorrhage 4. Hot flashes 5. Mild episode of recurrent major depressive disorder ([facility] V24) PLAN: Assessment & Plan 1. Hypertriglyceridemia: Stable. -Cholesterol levels improved: total cholesterol 203, LDL 134, triglycerides 152. - Continue Lopid 600 mg BID. 2. Rheumatoid arthritis: Stable. - On methotrexate 2.5 mg (5 tablets weekly) and Cimzia injections biweekly. - Blood work scheduled for next rheumatology visit . - Liver function monitored. -follow up with rheumatology 3. Heartburn: Stable. - Continue Pepcid 20 mg BID. 4. Anxiety and depression: Improved. - Occasional hot flashes, improved since Zoloft dosage increase. - Increased bloating and indigestion possibly related to higher dose. - Continue Zoloft 75 mg daily. Follow-up - In 6 months for physical examination and lab work. I have obtained verbal consent from Alison Jennings prior to the recording. I have advised Alison Jennings that she may refuse the recording and require the recording to be turned off at any time during this encounter. Medical literature provided and reviewed with patient. Patient is to return if symptoms do not improve or get worse. Patient agrees with plan. No orders of the defined types were placed in this encounter. ADDITIONAL ORDERS: None RAVI Ramirez on 06/02/2025 at 10:31 AM EDT documented in this encounter Plan of Treatment Upcoming Encounters Date Type Department Care Team (Late st Contact Info) Description 12/01/2025 10:00 AM EDT Office Visit Adult Medicine - [place] [address] [place] [phone] Fidelina Damon PA [address] [place] [address] documented as of this encounter Visit Diagnoses Diagnosis Hypercholesteremia- Primary Pure hypercholesterolemia Seronegative rheumatoid arthritis (CMS/[facility] V24, CMS/HCC V28) Rheumatoid arthritis Gastroesophageal reflux disease with esophagitis without hemorrhage Hot flashes Mild episode of recurrent major depressive disorder ([facility] V24) documented in this encounter Additional Health Concerns Assessment Noted Time PHQ-9 Depression Total Score: 0 03/22/20 25 6:59 PM EDT documented as of this encounter Care Teams Patient Access Manager Relationship Specialty Start Date End Date Lori Victoria MD [address] [place] [address] PCP - General Internal Medicine 02/22/16 documented as of this encounter
--- OUTSIDE RECORDS SUMMARY | 2025-06-05 08:04 | XMS_ITS | Clinical Summary ---
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 60 each 11 5 10/02/19 26 Active albuterol HFA (ProAir HFA) 90 mcg/actuation inhaler Inhale 2 puffs by mouth every 4 (four) hours if needed for wheezing or shortness of breath. 8.5 g 5 11/14/19 26 Active gemfibroziL (LOPID) 600 mg tablet Take 1 tablet (600 mg total) by mouth 2 (two) times a day. 180 tablet 1 5 Active sertraline (ZOLOFT) 50 mg tablet Take 1.5 tablets (75 mg total) by mouth 1 (one) time each day. 45 each 3 5 Active Active Problems Problem Noted Date Diagnosed Date Hot flashes 06/02/2025 Depression 11/14/2024 Hypercholesteremia 11/14/2024 Gastroesophageal reflux dise [...] metrogel in past Seronegative rheumatoid arth ritis ([facility] V24, [facility] V28) 08/17/2005 Overview (07/12/2024): I SERO NEG Initial response but eventual lack of control on sulfasalazine [id number] Methotrexate gave partial response 2004-; Good response on Enbrel since 01/2006. PPD neg 2007 at work; negative again 2013 Change to Humira Jun 2014 because of failing response of Enbrel Resolved Problems Problem Noted Date Diagnosed Date Resolved Date SOB (shortness of breath) 11/14/2024 Encounters Date Type Department Care Team Description 06/02/2025 10:15 AM EDT Office Visit Adult [address] [phone] Fidelina Damon PA Hypercholesteremia (Primary Dx); Seronegative rheumatoid arthritis ([facility] V24, [facility] V28); Gastroesophageal reflux disease with esophagitis without hemorrhage; Hot flashes; Mild episode of recurrent major depressive disorder ([facility] V24) 03/28/2025 10:30 AM EDT Office Visit Adult Medicine [address] [place] [address] Fidelina Damon PA Hypercholesteremia (Primary Dx); Seronegative rheumatoid arthritis ([facility] V24, [facility] V28); Gastroesophageal reflux disease with esophagitis without hemorrhage; Hot flashes; Depression, unspecified depression type from Last 3 Months Immunizations Name Administration [...] Site/Laterality Comments OTHER SURGICAL HISTORY 07/19/2004 PROCEDURE: ME ANES IPER LWR ABD W/LAPS TUBAL LIGATION/TRANSECT; COMMENT: BLADDER SUSP WELL 07/22 VENTRAL HERNIA REPAIR 01/16/2007 PROCEDURE: HISTORICAL VTRL WALL HERNIA RE; COMMENT: incisonal hernia SECTION PROCEDURE: ME DELIVERY ONLY OTHER SURGICAL HISTORY PROCEDURE: ME LIG/TRNSXJ FLP TUBE ABDL/VAG APPR UNI/BI BREAST [...] Never Smokeless Tobacco: Never Tobacco Cessation:Counseling Given: Not Answered Alcohol Use Standard Drinks/Week Comments No 0 [...] Record ed Within the last 3 months, ho w many times did you visit the emergency [...] care for your loved ones. For example, child development director or elderly care for an older adult? [...] Pulse 60 06/02/2025 10:07 AM EDT Temperature 36.4 C (97.6 F) 12/27/2024 10:27 AM EDT Respiratory Rate 18 06/02/2025 10:07 AM EDT Oxygen Saturation - - Inhaled Oxygen Concentration - - Weight 90.3 kg (199 lb) 06/02/2025 10:07 AM EDT Height 172.7 cm (5' 8 ) 06/02/2025 10:07 AM EDT Body Mass Index 30.26 06/02/2025 10:07 AM EDT Plan of Treatment Upcoming Encounters Date Type Department Care Team (Late st Contact Info) Description 12/01/2025 10:00 AM EDT Office Visit Adult Medicine [facility] [address] [place] [phone] Fidelina Damon PA [address] [place] [address] Health Maintenance Due Date Last Done Comments Hepatitis B Vaccines (1 of 3 - 19+ 3-dose series) 02/16/1987 Cervical Cancer Screening: Pap Smear 05/09/2019 05/09/2016 HIV Screening 08/27/2022 COVID-19 Vaccine ( season) 2025 01/25/2024, 01/24/2022, 09/23/2021, Additional history exists Influenza Vaccine (#1) 2025 , 07/07/2022, 06/15/2021, Additional history exists Social Influencers of Health Screening 03/22/2026 03/22/2025 Breast Cancer Screening 10/14/2026 10/14/19 25, 05/05/2023, 02/07/2022, Additional history exists Cholesterol Screening (Lipid Panel) 03/28/2030 03/28/2025, 12/27/2024, 10/02/2024, Additional history exists Colorectal Cancer Screening: Colonoscopy 06/19/2033 06/19/2023 Osteoporosis Screening (Bone Density Screening) 12/18/2033 12/18/2018 DTaP,Tdap,and Td Vaccines (3 - Td or Tdap) 03/29/2034 03/29/2024, 05/22/2007 Hepatitis C Screening Completed 07/29/2020 Pneumococcal Vaccine: 50+ Years Completed 04/01/2022, 11/27/2012, 06/03/2008 Zoster Vaccines Completed 06/26/2024, 01/25/2024 Depression Screening Completed 03/22/2025 HIB Vaccines Aged Out No longer eligi [...] Procedure Name Priority Date/Time Associated Diagnosis Comments LIPID PANEL WITH REFLEX TO DIRECT LDL Routine 03/28/2025 11:11 AM EDT Hypercholesteremia MG MAMMO DIGITAL SCREENING W RONALD BILAT Routine 10/14/2024 2:26 PM EST Encounter for screening mammogram for breast cancer COLONOSCOPY Routine 06/19/2023 HEPATITIS C SCREENING Routine 07/29/2020 [facility] DEXA AXIAL SKELETON Routine 12/18/2018 8:08 AM EDT Asymptomatic menopausal state PAP SMEAR Routine 05/09/2016 from Last 3 Months or Most Recently Relevant to Health Maintenance Results * (ABNORMAL) Lipid panel with reflex to direct LDL (03/28/2025 11:11 AM EDT) Cholesterol 203(H) 0 - 200 mg/dL LAB CHEMISTRY METHOD 03/28/2025 2:18 PM EDT [facility] Triglycerides 152(H) 0 - 150 mg/dL LAB CHEMISTRY METHOD 03/28/2025 2:18 PM EDT [facility] HDL 39(L) >=40 mg/dL LAB CHEMISTRY METHOD 03/28/2025 2:18 PM EDT [facility] LDL Calculated 134(H) 0 - 100 mg/dL LAB CHEMISTRY METHOD 03/28/2025 2:18 PM EDT [facility] VLDL Cholesterol Armen 30.4 mg/dL LAB CHEMISTRY METHOD 03/28/2025 2:18 PM EDT [facility] Non HDL Chol. (LDL+VLDL) 164(H) <145 mg/dL LAB CHEMISTRY METHOD 03/28/2025 2:18 PM EDT [facility] Chol/HDL Ratio 5.2(H) 0.0 - 4.4 LAB CHEMISTRY METHOD 03/28/2025 2:18 PM EDT [facility] Blood Venous blood specimen / Unknown Venipuncture / Unknown 03/28/2025 11:11 AM EDT 03/28/2025 11:11 AM EDT Fidelina RODRIGUES LAB BLOOD ORDERABLES Final Result [facility] [address] [place] [address], [place] [phone] * MG Mammo Digital Screening w Ronald bilat (10/14/2024 2:26 PM EST) Anatomical Region Laterality Modality Breast Bilateral Mammography 10/14/2024 3:08 PM EST Impressions 10/14/2024 3:15 PM EST Multiple bilateral circumscribed equal density masses. No suspicious masses. A negative mammogram in the presence of a clinically suspicious palpable abnormality does not preclude the possibility of malignancy or alter the indications for biopsy. ASSESSMENT: BI-RADS 2: BENIGN RECOMMENDATION(S): 1: Routine screening mammogram BILATERAL in 1 year. -------- FINAL REPORT -------- Dictated By: Hilario Mccoy Dictated Date: 10/14/2024 15:08 ET Assigned Physician: Hilario Mccoy Reviewed and Electronically Signed By: Hilario Mccoy Signed Date: 10/14/2024 15:15 ET Workstation ID: [id number] Transcribed By: Self Edit Transcribed Date: 10/14/2024 15:08 ET Narrative 10/14/2024 3:15 PM EST EXAM: SCREENING MAMMOGRAPHY, BILATERAL HISTORY: SCREENING. No additional history. COMPARISON: 05/05/2023, 02/07/2022, 02/05/2021 TECHNIQUE: Synthesized CC and MLO projections of each breast. Tomosynthesis of each breast in the CC and MLO projections. ADDITIONAL IMAGING: None Computer-aided detection was employed with the [email or web address] AI 3-D. TISSUE DENSITY: There are scattered areas of fibroglandular density. (BI-RADS category B) FINDINGS: RIGHT BREAST: There are multiple small varying sized round and oval equal density masses with circumscribed margins. No spiculated masses. No distortion. No suspicious calcification LEFT BREAST: There are multiple small circumscribed equal density masses. No spiculated masses or distortion. No suspicious calcification Procedure Note Hilario Mccoy MD - 10/14/2024 EXAM: SCREENING MAMMOGRAPHY, BILATERAL HISTORY: SCREENING. No additional history. COMPARISON: 05/05/2023, 02/07/2022, 02/05/2021 TECHNIQUE: Synthesized CC and MLO projections of each breast.Tomosynthesis of each breast in the CC and MLO projections. ADDITIONAL IMAGING: None Computer-aided detection was employed with the [email or web address] AI 3-D. TISSUE DENSITY: There are scattered [...] Signed Date: 10/14/2024 15:15 ET Workstation ID: [id number] Transcribed By: Self Edit Transcribed Date: 10/14/2024 15:08 ET us Self Referral Sppl IMG BI PROCEDURES Final Resul t * Colonoscopy (06/19/2023) Colonoscopy 10 yr fu Anatomical Region Laterality Modality Other Historical Provider HEALTH MAINTENANCE Final Result * Hepatitis C Screening (07/29/2020) Hepatitis C Screening negative Historical Provider HEALTH MAINTENANCE Final Result * [facility] DEXA AXIAL SKELETON (12/18/2018 8:08 AM EDT) Anatomical Region Laterality Modality Mammography 12/14/2018 9:39 AM EDT Narrative 12/18/2018 8:08 AM EDT [facility] Diagnostic Imaging Department [address] [place] [address] Patient: ALISON JENNINGS /Age/Sex: 1970 - 48 - F Unit#: [id number] Location/Status: SPDIMAM/REG CLI Mnemonic[facility]ing [facility] Ordering Physician: LETY MARQUEZ MD Yuan Dexa Axial Skeleton - 12/17/181708 HISTORY: The patient is a 48-year-old postmenopausal female with clinical concern for metabolic bone disease. FINDINGS: Dual [...] 116% of that of age matched controls. This yields a T-score of 1.2 and a Z-score of 1.3 and there is therefore no evidence of osteoporosis or osteopenia here. IMPRESSION: 1. There is no evidence of osteoporosis or osteopenia. 2. FRAX analysis yields a 10-year probability of major osteoporotic fracture of 4.7% and a 10-year probability of hip fracture of 0.1%. Code 02105 Dictating Physician: MICHEL VILLANUEVA MD Electronically Signed by: MICHEL VILLANUEVA MD Dic Date/Time: 12/18/18 0807 Sign date/Time: 12/18/18 0808 Procedure Note Michel Villanueva MD - 09/06/2022 [facility] Diagnostic Imaging Department [address] [place], [place] [id number] Patient: ALISON JENNINGS Maria T /Age/Sex: 1970 48 - F Unit#: [id number] [facility]/Ordering Site: [facility] Ordering Physician: LETY MARQUEZ MD Yuan Dexa Axial Skeleton - 12/17/18 170 HISTORY: The patient is a 48-year-old postmenopausal [...] density of the femurs bilaterally is 1.159 gm/hs2nltia is 115% of that of young normals [...] probability of hip fracture of 0.1%. Code 89077 Dictating Physician: MICHEL VILLANUEVA MD Electronically Signed by: MICHEL VILLANUEVA MD Dic Date/Time: 12/18/18 0807 Sign date/Time: 12/18/18 0808 Lety Marquez MD IM BI PROCEDURES Final Resu lt * Hm Pap Smear (05/09/2016) Pap smear no interpretation , abstracted Historical Provider HEALTH MAINTENANCE Final Result from Last 3 Months or Most Recently Relevant to Health Maintenance Insurance [facility] Care Teams Weld Lay Out Worker Relationship Specialty Start Date End Date Lori Victoria MD [address] [place] [phone] PCP - General Internal Medicine 02/22/16
--- OUTSIDE RECORDS SUMMARY | 2025-06-05 08:05 | XMS_ITS ---
Author Name [facility] Organization Unknown Care Team Organization Name Specialty Phone Email Start Date End Da te [facility] LEVON MOONEY Primary Care 07/26/2022 05/06/2024
[2025-06-05 08:12] VITALS: BP 114/80; PULSE 81; O2SAT 98; BMI 30.4
--- NOTE | 2025-06-05 08:12 | MHC.OFFVIS ---
Vital Signs 06/05/25 08:12 Height 5 ft 8 in Weight 200 lb BMI 30.4 BP 114/80 Blood Pressure Location Rt brachial Position Sitting Pulse 81 Pulse Source Pulse Oximeter Pulse Oximetry (%) 98 Oxygen Delivery Method Room Air Intake Visit Reasons: 3 Months Intake Note: Patient presents for RA follow up. Accompanied by: Self / Same As Patient Allergies tofacitinib (From Xeljanz) Allergy (Mild, Verified 06/05/25 08:13) Hives Sulfa (Sulfonamide Antibiotics) Allergy (Unknown, Verified 06/05/25 08:13) Hives HPI HPI 3 Months: Details: Morning stiffness is 5-10 minutes. R 1st MCP pain exacerbated with using the mouth. No new joint swelling. No recent sickness. She feels the best she has ever felt since being on Cimzia. [facility], LAT[facility] Medical History PUD (peptic ulcer disease) Endometrial polyp Incisional hernia Rheumatoid arthritis Surgical History H/O colonoscopy Social History Alcohol intake: never Patient Tobacco Use Status: Never used Tobacco Physical Exam Vital Signs: Last Vital Signs Pulse 81 06/05/25 08:12 BP 114/80 06/05/25 08:12 Pulse Ox 98 06/05/25 08:12 Oxygen Delivery Method Room Air 06/05/25 08:12 BMI result Body Mass Index 30.4 Const Other: General: Comfortable CVS: RRR Respiratory: clear to auscultation bilaterally. Good respiratory effort Skin: Comedones present on cheeks and chin. MSK: Bilateral z fingers present. Tender right 1st IP joint. No synovitis. Squaring of CMCs. Ulnar deviation right hand. Normal range of motion of upper extremities and lower extremities. Assessment & Plan Assessment & Plan (1) Rheumatoid arthritis: Comment: She is in remission on cimzia and methotrexate. Methotrexate dose was further reduced to 12.5 mg once weekly due to transaminitis. This current regimen has provided her with the best control of her inflammatory arthritis. We discussed that if her liver enzymes remain elevated, we will have to further reduce methotrexate. 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 Failed sulfasalazine 1998 to 2004, methotrexate 2004 to 2005 with partial response, Enbrel secondary treatment failure January 2006 to 06/2014, Humira 06/2014 to 12/2022. Simponi 01/24/2023. Orencia 05/2023 to 09/2023 discontinued due to recurrent infections. Methotrexate restarted 07/07/2023 to present. Xeljanz effective 11/2023 to 03/2024 discontinued due to facial rash. Rinvoq effective 03/2024-10/2024 discontinued due to facial rash. Cimzia 11/2024- Code(s): M06.9 - Rheumatoid arthritis, unspecified Category: Medical Qualifiers: Rheumatoid arthritis location: knee Rheumatoid factor presence: with rheumatoid factor Laterality: bilateral Qualified Code(s): M05.761 - Rheumatoid arthritis with rheumatoid factor of right knee without organ or systems involvement; M05.762 - Rheumatoid arthritis with rheumatoid factor of left knee without organ or systems involvement Plan: Continue Cimzia 200 mg every 2 weeks subcutaneous injection Labs for drug monitoring on high-risk medication ordered. If she continues to have transaminitis, I will lower methotrexate dose to 10 mg once weekly. Continue methotrexate 12.5 mg once week Continue folic acid 1 mg daily Return to clinic in 3 months or sooner if needed (2) Other senior care (current) drug therapy: Code(s): Z79.899 - Other senior care (current) drug therapy Category: Medical Plan: See above (3) Transaminitis: Code(s): R74.01 - Elevation of levels of liver transaminase levels Category: Medical Plan: See above Orders: Orders Complete Blood Count Auto Diff Today Z79.899 - Other senior care (current) drug therapy Alanine Aminotransferase Today Z79.899 - Other manager long term care (current) drug therapy Aspartate Amino Transferase Today Z79.899 - Other manager long term care (current) drug therapy Creatinine Today Z79.899 - Other manager long term care (current) drug therapy C Reactive Protein Today Z79.899 - Other manager long term care (current) drug therapy Erythrocyte Sedimentation Rate Today Z79.899 - Other senior care (current) drug therapy Coding Level of Care Code Est Pt Level 4 (51952) Complex EM visit Add On G2211 Diagnoses Rheumatoid arthritis involving both knees with positive rheumatoid factor M05.761; M05.762 Rheumatoid arthritis location: knee Rheumatoid factor presence: with rheumatoid factor Laterality: bilateral Other senior care (current) drug therapy Z79.899 Transaminitis R74.01
== END 2025-06-05 08:46 | disposition home or self-care (01) ==
LOC: HO.RHES 08:01
PROVIDERS: PCP Internal Medicine; Visit Provider Internal Medicine Rheumatology
DX: M05.761 Rheumatoid arthritis with rheumatoid factor of right knee without organ or systems involvement (principal); M05.762 Rheumatoid arthritis with rheumatoid factor of left knee without organ or systems involvement; Z79.899 Other long term (current) drug therapy; R74.01 Elevation of levels of liver transaminase levels
CPT/HCPCS: 99214